=== PATIENT | male | born 1945 | race Caucasian/White ===

== ENCOUNTER → 2016-10-13 | Outpatient (CLI) | payer MEDICARE, OTHER ==
--- NOTE | 2016-10-13 16:22 | XR ---
EXAMINATION TYPE: XR chest 2V DATE OF EXAM: 10/13/2016 3:05 PM COMPARISON: NONE HISTORY: Abnormal weight loss TECHNIQUE: Frontal and lateral views of the chest are obtained. FINDINGS: There is no pleural effusion, or pneumothorax seen. The cardiac silhouette size is within normal limits. There are prominent lung volumes. Substernal nodular density seen on the lateral vi ew measures approximately 2.4 cm. The osseous structures are intact. IMPRESSION: Substernal lung nodule, recommend chest CT for better evaluation. A Yellow message has been communicated to Kahlil Bliss DO via the [employer] system on 10/13/2016 4:19 PM, Message ID [id number].
== END | disposition home or self-care (01) ==
LOC: RADXRMAIN 14:55
PROVIDERS: ATTEND Family Medicine
DX: R91.1 Solitary pulmonary nodule (principal); R63.4 Abnormal weight loss
CPT/HCPCS: 71020

== ENCOUNTER → 2016-10-21 | Outpatient (CLI) | payer MEDICARE, OTHER ==
--- NOTE | 2016-10-21 08:31 | CT ---
EXAMINATION TYPE: CT chest wo con DATE OF EXAM: 10/21/2016 8:17 AM COMPARISON: NONE HISTORY: Abn CXR, wt loss CT DLP: 754 mGycm Automated exposure control for dose reduction was used. FINDINGS: There is minimal scarring in the right middle lobe. No parenchymal nodule is seen. There is no significant axillary, mediastinal or hilar adenopathy. There is no pleural or pericardial fluid. The heart is not enlarged. There is calcification of the coronary arteries as well as other v ascular calcifications. No retrosternal mass is seen. Preprocedure There is a tiny calcification within the neck of the gallbladder likely representing a small gallston e. There is a 2.1 cm exophytic lesion arising from the upper pole of the right kidney. This likely re presents a cyst. Visualized portions of the upper abdomen are otherwise unremarkable. There is hypertrophic spondylosis within the spine. IMPRESSION: 1. NO PARENCHYMAL OR RETROSTERNAL MASS IS SEEN. 2. MINIMAL SCARRING, RIGHT MIDDLE LOBE. 3. CHOLELITHIASIS. 4. PROBABLE CYST ARISING FROM THE UPPER POLE OF THE RIGHT KIDNEY. THIS COULD BE CONFIRMED WITH ULTRAS OUND.
== END | disposition home or self-care (01) ==
LOC: RADCTMAIN 08:00
PROVIDERS: ATTEND Family Medicine
DX: J98.4 Other disorders of lung (principal); R91.1 Solitary pulmonary nodule
CPT/HCPCS: 71250

== ENCOUNTER → 2017-11-13 | Outpatient (CLI) | payer MEDICARE, OTHER ==
--- NOTE | 2017-11-13 11:14 | XR ---
EXAMINATION TYPE: XR abdomen 2V DATE OF EXAM: 11/13/2017 HISTORY: Pain. Technique: 2 views of the abdomen are submitted. Comparison: None. Findings: There is no convincing evidence of pneumoperitoneum. The Bowel gas pattern is nonspecific and nonobstructive. No sizable air-fluid levels are seen. No mass effects are noted. No renal calcifications are identified. IMPRESSION: 1. Nonspecific nonobstructive bowel gas pattern
== END | disposition home or self-care (01) ==
LOC: RADXRMAIN 10:38
PROVIDERS: ATTEND Family Medicine
DX: R10.9 Unspecified abdominal pain (principal)
CPT/HCPCS: 74019

== ENCOUNTER 2018-02-15 15:10 | Emergency (ER) | payer MEDICARE, OTHER ==
[2018-02-15] MEDS ORDERED: LIDOCAINE 1% INJ 10MG/ML (20 ML MDV) SQ ONE (15:48)
[2018-02-15] MEDS ORDERED: DIPH,PERTUS(ACELL)TETVAC-LF 0.5 ML VIAL IM ONE (15:48)
--- NOTE | 2018-02-15 15:58 | ED ---
Wound/Laceration HPI - General Source: patient, RN notes reviewed Mode of arrival: ambulatory Limitations: no limitations <Oxana Poe - Last Filed: 02/15/18 19:41> <Will Tobias - Last Filed: 02/15/18 21:30> - General Chief Complaint: Wound/Laceration Stated Complaint: hand lac - History of Present Illness Initial Comments: This a 73-year-old male past medical history of hypertension and CAD presents today for chief complaint of right thumb laceration. Patient states that about 20 minutes prior to presentation he was cleaning a picture frame when it fell and shattered cutting his right thumb. Patient denies any glass being inside of the wound. However he states that he is unsure. Patient denies any use of anticoagulants. Patient does not know if his tetanus up-to-date. Patient denies any numbness, tingling, loss sensation, decreased range of motion of the thumb. Patient denies pain at this time. Patient states that he applied pressure and presented emergency department. Vital signs stable. (Oxana Poe) - Related Data Home Medications Medication Instructions Recorded Confirmed Ascorbic Acid [Vitamin C] 1,000 mg PO DAILY 02/15/18 02/15/18 Aspirin EC [Ecotrin Low Dose] 81 mg PO DAILY 02/15/18 02/15/18 Atorvastatin [Lipitor] 40 mg PO DAILY 02/15/18 02/15/18 Cholecalciferol [Vitamin D3] 1,000 unit PO DAILY 02/15/18 02/15/18 Lisinopril-Hctz 20-12.5 mg 1 tab PO BID 02/15/18 02/15/18 [Zestoretic 20-12.5] [place]-3 Fatty Acids/Fish Oil [Fish 1 cap PO DAILY 02/15/18 02/15/18 Oil 1,000 mg Softgel] Sertraline [Zoloft] 50 mg PO DAILY 02/15/18 02/15/18 Tamsulosin HCl [Flomax] 0.4 mg PO HS 02/15/18 02/15/18 Thiamine [Vitamin B-1] 50 mg PO DAILY 02/15/18 02/15/18 Allergies Allergy/AdvReac Type Severity Reaction Status Date / Time No Known Allergies Allergy Verified 02/15/18 16:18 Review of Systems ROS Other: All systems not noted in ROS Statement are negative. Constitutional: Denies: fever, chills Respiratory: Denies: cough, dyspnea Cardiovascular: Denies: chest pain, palpitations Endocrine: Denies: fatigue Gastrointestinal: Denies: abdominal pain, nausea, vomiting, diarrhea, constipation Genitourinary: Denies: urgency, dysuria Musculoskeletal: Denies: back pain Skin: Reports: as per HPI. Denies: rash, lesions <Oxana Poe - Last Filed: 02/15/18 19:41> ROS Other: All systems not noted in ROS Statement are negative. <JatinderWill - Last Filed: 02/15/18 21:30> ROS Statement: Those systems with pertinent positive or pertinent negative responses have been documented in the HPI. Past Medical History Past Medical History: Hyperlipidemia, Hypertension History of Any Multi-Drug Resistant Organisms: None Reported Past Surgical History: No Surgical Hx Reported Past Psychological History: Anxiety, Depression Smoking Status: Never smoker Past Alcohol Use History: None Reported Past Drug Use History: None Reported <Oxana Poe - Last Filed: 02/15/18 19:41> General Exam Limitations: no limitations <Oxana Poe - Last Filed: 02/15/18 19:41> <Will Tobias - Last Filed: 02/15/18 21:30> - General Exam Comments Initial Comments: General: The patient is awake and alert, in no distress, and does not appear acutely ill. Eye: Pupils are equal, round and reactive to light, extra-ocular movements are intact. No nystagmus. There is normal conjunctiva bilaterally. No signs of icterus. Cardiovascular: There is a regular rate and rhythm. No murmur, rub or gallop is appreciated. Respiratory: Lungs are clear to auscultation, respirations are non-labored, breath sounds are equal. No wheezes, stridor, rales, or rhonchi. Musculoskeletal: Normal ROM at the MCP, DIP and PIP joints with flexion and extension these joints were tested individually. All joints have 5/5 strength. No tenderness to range of motion. Sensation intact. Radial pulses equal bilaterally 2+. Neurological: A&O x 3. CN II-XII intact, There are no obvious motor or sensory deficits. Coordination appears grossly intact. Speech is normal. Skin: Skin is warm and dry and no rashes. There is a 3 cm U-shaped laceration to the flexor aspect of the right thumb, with skin flap. Appears to be superficial, no exposure of underlying structures. No evidence of exposed tendons. No evidence of FB. No active bleeding Psychiatric: Cooperative, appropriate mood & affect, normal judgment. (Oxana Poe) Course <Oxana Poe - Last Filed: 02/15/18 19:41> <Will Tobias - Last Filed: 02/15/18 21:30> Vital Signs 02/15/18 02/15/18 15:38 17:18 Temperature 98.4 F 98.6 F Pulse Rate 89 87 Respiratory 18 16 Rate Blood Pressure 138/76 136/77 O2 Sat by Pulse 95 98 Oximetry - Reevaluation(s) Reevaluation #1: 02/15/18 21:30 PA supervision: I did personally evaluate this case and do agree with the assessment and plan and less otherwise indicated. (Will Tobias) Procedures - Laceration Laceration #1 Consent Obtained: verbal consent Time Out Performed: Yes Indication: laceration Site: hand (right flexor surface of thumb) Size (cm): 3 Description: flap, irregular, clean Depth: simple, single layer Anesthetic Used: lidocaine 1% Anesthesia Technique: local infiltration Amount (mls): 10 Pre-repair: wound explored, irrigated extensively, deep structures intact Type of Sutures: nylon Size of Sutures: 5-0 Number of Sutures: 9 Technique: simple, interrupted Patient Tolerated Procedure: well, no complications <LuiOxana L - Last Filed: 02/15/18 19:41> Medical Decision Making <Oxana Poe - Last Filed: 02/15/18 19:41> <Will Tobias - Last Filed: 02/15/18 21:30> - Medical Decision Making Pt received TDaP. Laceration assessed/explored. XR obtained no evidence of foreign body. Wound edges were approximated using 9, 5. 0 nylon sutures. Patient tolerate procedure well. Prior to her laceration repair wound was extensively irrigated and cleansed using iodine. MSK exam revealed full range of motion at all joint of the the thumb, there is no evidence of exposure of tendon or tendon injury. Bacitracin was applied and sterile bandage. Signs of symptoms of infection were discussed with the patient, he is instructed to return to ER if these arise. Patient is not diabetic, there is no ppx abx indicated at this time. Patient was discharged with instruction to follow-up in 7 days for suture removal. Patient verbalized understanding. Patient is discharged in stable condition. (Oxana Poe) Disposition Is patient prescribed a controlled substance at d/c from ED?: No Time of Disposition: 17:01 <Oxana Poe - Last Filed: 02/15/18 19:41> <Will Tobias - Last Filed: 02/15/18 21:30> Clinical Impression: Laceration of right thumb without complication Disposition: HOME SELF-CARE Condition: Good Instructions: Care For Your Stitches (ED), Finger Laceration (ED) Additional Instructions: Please use over the counter pain medication as discussed. Please follow-up in 7 -10 days for suture removal. Please return to emergency room if the symptoms increase or worsen or for any other concerns. Referrals: Kahlil Bliss DO [Primary Care Provider] - 1-2 days
--- NOTE | 2018-02-15 16:07 | XR ---
EXAMINATION TYPE: XR hand limited RT DATE OF EXAM: 02/15/2018 COMPARISON: NONE HISTORY: 73-year-old male first metacarpal and radial styloid laceration TECHNIQUE: 2 views FINDINGS: No retained radiopaque foreign body seen. 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 No acute fracture, subluxation, or dislocation is seen. IMPRESSION: No acute osseous abnormality seen. No retained radiopaque foreign body. Chronic ununited fracture fra gment of the ulnar styloid process.
[2018-02-15 17:19] VITALS: BP 136/77; PULSE 87; RESP 16; TEMP 98.6
== END 2018-02-15 17:17 | disposition home or self-care (01) ==
LOC: EC 15:10
DX: S61.011A Laceration without foreign body of right thumb without damage to nail, initial encounter (principal); E78.5 Hyperlipidemia, unspecified; I10 Essential (primary) hypertension; I25.10 Atherosclerotic heart disease of native coronary artery without angina pectoris; F32.9 Major depressive disorder, single episode, unspecified; F41.9 Anxiety disorder, unspecified; Z23 Encounter for immunization; Z79.82 Long term (current) use of aspirin; Z79.899 Other long term (current) drug therapy; W45.8XXA Other foreign body or object entering through skin, initial encounter; Y93.89 Activity, other specified
CPT/HCPCS: 73120; 90715; 99283; 12002; 90471; J2001

== ENCOUNTER 2018-09-05 07:34 | Emergency (ER) | payer MEDICARE, OTHER ==
[2018-09-05 07:48] VITALS: TEMP 98
[2018-09-05] MEDS ORDERED: methylPREDNISolone SOD SUCCI 125 MG/2 ML VIAL IV STA (08:18)
[2018-09-05] MEDS ORDERED: diphenhydrAMINE 50 MG/ML 1 ML VIAL IVP STA (08:18)
--- NOTE | 2018-09-05 08:41 | ED ---
Allergic Reaction HPI - General Chief complaint: Allergic Reaction Stated complaint: Swollen tongue Time Seen by Provider: 09/05/18 08:11 Source: patient, RN notes reviewed Mode of arrival: ambulatory Limitations: no limitations - History of Present Illness Initial Comments: 73-year-old male presents emergency Department with chief complaint of tongue s welling. Patient states he woke up with it this morning. He states that he just felt that something was off states he looked at this time he noticed swelling on the right side. Patient states it no symptoms last night. He does state that the symptoms seem to be improving at this time. Denies any new medications soaps lotions detergents, new foods or known ALLERGIES. Patient does admit that he takes aspirin and lisinopril. Patient denies any difficulty swallowing, difficulty breathing. He states that he just noticed that his tongue is swollen. Patient states that he is able to eat and drink this morning with no difficulty. Patient has fever, chills, headache, dizziness. - Related Data Home Medications Medication Instructions Recorded Confirmed Ascorbic Acid [Vitamin C] 1,000 mg PO DAILY 02/15/18 09/05/18 Aspirin EC [Ecotrin Low Dose] 81 mg PO DAILY 02/15/18 09/05/18 Atorvastatin [Lipitor] 40 mg PO DAILY 02/15/18 09/05/18 Cholecalciferol [Vitamin D3] 1,000 unit PO DAILY 02/15/18 09/05/18 Lisinopril-Hctz 20-12.5 mg 1 tab PO BID 02/15/18 09/05/18 [Zestoretic 20-12.5] [place]-3 Fatty Acids/Fish Oil [Fish 1 cap PO DAILY 02/15/18 09/05/18 Oil 1,000 mg Softgel] Sertraline [Zoloft] 50 mg PO DAILY 02/15/18 09/05/18 Tamsulosin HCl [Flomax] 0.4 mg PO HS 02/15/18 09/05/18 Thiamine [Vitamin B-1] 50 mg PO DAILY 02/15/18 09/05/18 Allergies Allergy/AdvReac Type Severity Reaction Status Date / Time No Known Allergies Allergy Verified 09/05/18 07:55 Review of Systems ROS Statement: Those systems with pertinent positive or pertinent negative responses have been documented in the HPI. ROS Other: All systems not noted in ROS Statement are negative. Past Medical History Past Medical History: Hyperlipidemia, Hypertension History of Any Multi-Drug Resistant Organisms: None Reported Past Surgical History: No Surgical Hx Reported Past Psychological History: Anxiety, Depression Smoking Status: Never smoker Past Alcohol Use History: None Reported Past Drug Use History: None Reported General Exam Limitations: no limitations General appearance: alert, in no apparent distress Head exam: Present: atraumatic, normocephalic, normal inspection Eye exam: Present: normal appearance, PERRL, EOMI. Absent: scleral icterus, conjunctival injection, periorbital swelling ENT exam: Present: mucous membranes moist, TM's normal bilaterally, normal external ear exam. Absent: normal oropharynx (Swelling of the right side of his tongue with no ecchymotic areas no lacerations or lesions. Patient is a patent airway, swallowing secretions well and in no distress) Neck exam: Present: normal inspection, full ROM. Absent: tenderness, meningismus, lymphadenopathy Respiratory exam: Present: normal lung sounds bilaterally. Absent: respiratory distress, wheezes, rales, rhonchi, stridor Cardiovascular Exam: Present: regular rate, normal rhythm, normal heart sounds. Absent: systolic murmur, diastolic murmur, rubs, gallop, clicks Skin exam: Present: warm, dry, intact, normal color. Absent: rash Course Vital Signs 09/05/18 07:45 Temperature 98 F Pulse Rate 86 Respiratory 16 Rate Blood Pressure 115/69 O2 Sat by Pulse 97 Oximetry - Reevaluation(s) Reevaluation #1: 09/05/18 11:19 Patient reevaluated multiple times patient's symptoms feel the be improving. He has no difficulty swallowing no difficulty breathing. Patient will be discharged. Medical Decision Making - Medical Decision Making 73-year-old male presented for tongue swelling. Patient symptoms may be related to his JUAN JOSÉ inhibitor. Patient advised to discontinue JUAN JOSÉ inhibitor and follow- up with PCP for further blood pressure medication. Patient was observed in emergency Department for 4 hours with no worsening of symptoms. Symptoms are improving. Patient never had any distress, no difficulty swallowing or difficulty breathing. Patient understands that he is to return for any change in symptoms. - Lab Data Result diagrams: 09/05/18 08:34 09/05/18 08:34 Lab Results 09/05/18 09/05/18 Range/Units 08:34 08:34 WBC 5.9 (3.8-10.6) k/uL RBC 4.62 (4.30-5.90) m/uL Hgb 12.4 L (13.0-17.5) gm/dL Hct 39.0 (39.0-53.0) % MCV 84.4 (80.0-100.0) fL MCH 26.8 (25.0-35.0) pg MCHC 31.7 (31.0-37.0) g/dL RDW 15.4 (11.5-15.5) % Plt Count 202 (150-450) k/uL Neutrophils % 69 % Lymphocytes % 14 % Monocytes % 5 % Eosinophils % 9 % Basophils % 1 % Neutrophils # 4.1 (1.3-7.7) k/uL Lymphocytes # 0.8 L (1.0-4.8) k/uL Monocytes # 0.3 (0-1.0) k/uL Eosinophils # 0.5 (0-0.7) k/uL Basophils # 0.0 (0-0.2) k/uL Sodium 139 (137-145) mmol/L Potassium 4.8 (3.5-5.1) mmol/L Chloride 107 (98-107) mmol/L Carbon Dioxide 23 (22-30) mmol/L Anion Gap 9 mmol/L BUN 36 H (9-20) mg/dL Creatinine 1.39 H (0.66-1.25) mg/dL Est GFR (CKD-EPI)AfAm 59 (>60 ml/min/1.73 sqM) Est GFR (CKD-EPI)NonAf 51 (>60 ml/min/1.73 sqM) Glucose 111 H (74-99) mg/dL Calcium 9.4 (8.4-10.2) mg/dL Disposition 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 Is patient prescribed a controlled substance at d/c from ED?: No Referrals: Kahlil Bliss DO [Primary Care Provider] - 1-2 days Time of Disposition: 11:22
[2018-09-05 08:54] LABS: Basophils % (A) 1 %; Eosinophils # (A) 0.5 k/uL (0-0.7); Eosinophils % (A) 9 %; HGB 12.4 gm/dL (13.0-17.5); Lymphocytes # (A) 0.8 k/uL (1.0-4.8); Lymphocytes % (A) 14 %; MCH 26.8 pg (25.0-35.0); MCHC 31.7 g/dL (31.0-37.0); MCV 84.4 fL (80.0-100.0); Mean Platelet Volume 7.6; Monocytes # (A) 0.3 k/uL (0-1.0); Monocytes % (A) 5 %; Neutrophils # (A) 4.1 k/uL (1.3-7.7); Neutrophils % (A) 69 %; Platelet Count 202 k/uL (150-450); RBC 4.62 m/uL (4.30-5.90); RDW 15.4 % (11.5-15.5); WBC 5.9 k/uL (3.8-10.6)
[2018-09-05 09:03] LABS: Calcium 9.4 mg/dL (8.4-10.2); Potassium 4.8 mmol/L (3.5-5.1)
[2018-09-05 11:32] VITALS: BP 112/75; PULSE 82; RESP 18
== END 2018-09-05 11:32 | disposition home or self-care (01) ==
LOC: EC 07:34
DX: T78.3XXA Angioneurotic edema, initial encounter (principal); E78.5 Hyperlipidemia, unspecified; I10 Essential (primary) hypertension; F41.9 Anxiety disorder, unspecified; F32.9 Major depressive disorder, single episode, unspecified; Z79.899 Other long term (current) drug therapy
CPT/HCPCS: 36415; 80048; 85025; 99283; 96374; 96375; J1200; J2930

== ENCOUNTER → 2020-03-19 | Outpatient (CLI) | payer MEDICARE, OTHER ==
--- NOTE | 2020-03-19 08:02 | CT ---
EXAMINATION TYPE: CT sinus wo con DATE OF EXAM: 03/19/2020 COMPARISON: NONE HISTORY: Chronic sinusitis and nasal polyps per order. CT DLP: 556.9 mGycm. Automated Exposure Control for Dose Reduction was Utilized. TECHNIQUE: CT scan of the sinuses is performed without contrast, axial images are obtained, coronal r eformatted images are also reviewed. FINDINGS: Mild to moderate lobulated mucosal thickening inferior aspect of bilateral maxillary sinuse s. Moderate to severe mucosal thickening throughout the ethmoid sinuses bilaterally with relative spa ring of the posterior ethmoid sinuses. Mild mucosal thickening involving the sphenoid sinuses bilater ally greatest anteriorly. Mild to moderate mucosal thickening involving the inferior aspect of the bi lateral frontal sinuses. No suspicious patchy opacification or air-fluid levels The surgically treate d ostiomeatal complex remains patent bilaterally on coronal image 21, there is asymmetric left greate r than right increased mucosal thickening causing asymmetric left-sided narrowing. Nasal septum is de viated to left of midline. Visualized portion of mastoid air cells show no abnormal opacification. The globes are intact bilate rally. There is diffuse age-related mild/moderate cerebral atrophy noted and visualized brain parenc hyma IMPRESSION: Chronic paranasal sinus disease as detailed above. No acute sinusitis currently.
== END | disposition home or self-care (01) ==
LOC: RADCTMAIN 06:45
PROVIDERS: ATTEND Otolaryngology
DX: J34.89 Other specified disorders of nose and nasal sinuses (principal); J34.2 Deviated nasal septum; J32.9 Chronic sinusitis, unspecified; Z88.8 Allergy status to other drugs, medicaments and biological substances
CPT/HCPCS: 70486

== ENCOUNTER → 2020-03-19 | Outpatient (CLI) | payer MEDICARE, OTHER ==
--- NOTE | 2020-03-19 15:59 | US ---
EXAMINATION TYPE: US scrotum with doppler. Grayscale and color Doppler Duplex imaging performed of t he scrotum. 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 EXAM MEASUREMENTS: TESTICLES: Right Testicle: 4.3 x 2.7 x 3.1 cm Left Testicle: 4.1 x 2.8 x 3.1 cm EPIDIDYMIS HEAD: Right Epididymis: 0.7 cm Left Epididymis: 1.1 cm Doppler performed to assess for testicular vascularity; good bilateral color flow and waveforms are s een. There is no evidence of testicular torsion. Presence of hydroceles: Right measuring 4.6 x 1.7 x 2.5cm Presence of varicoceles: no Irregular shaped calcified vascular mass measuring 6.6 x 3.3 x 7.1cm. This mass appears extratesticul ar. IMPRESSION: 1. Large vascular extratesticular mass left hemiscrotum. Hydrocele is present.
== END | disposition home or self-care (01) ==
LOC: RADUSWWP 14:54
PROVIDERS: ATTEND Family Medicine
DX: N43.3 Hydrocele, unspecified (principal); N50.89 Other specified disorders of the male genital organs
CPT/HCPCS: 76870; 93975

== ENCOUNTER 2020-04-09 09:03 | Day surgery (SDC) | payer MEDICARE, OTHER ==
[2020-04-08 10:17] VITALS: BMI 34.4
[~2020-04-09 09:03] MED LIST: LACTATED RINGERS 1,000 ML IV SCH
[2020-04-09 09:24] VITALS: TEMP 97.3
[2020-04-09] MEDS ORDERED: LACTATED RINGERS 1,000 ML IV ONE (09:27)
[2020-04-09] MEDS ORDERED: LIDOCAINE 1% (10MG/ML) FOR IV START INTRADERMA ONE (09:27)
[2020-04-09] MEDS ORDERED: PROPOFOL 10 MG/ML 20 ML VIAL IV ONE (10:19)
--- NOTE | 2020-04-09 10:53 | P.PCN ---
Date of Procedure: 04/09/20 Description of Procedure: BRIEF HISTORY: Patient is a 75-year-old male presenting for evaluation of colon, altered bowel function, blood per rectum with colonoscopy. Last colonoscopy 3 years ago significant for polypectomy and diverticulosis. Patient reports altered bowel function over the past 2 months with increased frequency of loose stools with blood per rectum and mucus. PROCEDURE PERFORMED: Colonoscopy with biopsy. PREOPERATIVE DIAGNOSIS: Melena, altered bowel function, blood per rectum, last colonoscopy 3 years ago. ESTIMATED BLOOD LOSS: Minimal. IV sedation per Anesthesia. PROCEDURE: After informed consent was obtained, the patient, was brought into the endoscopy unit. IV sedation was administered by Anesthesia under continuous monitoring. Digital rectal examination was normal. Initially the Olympus CF-190 flexible video colonoscope was then inserted in the rectum, gradually advanced into the cecum without any difficulty. Careful examination was performed as the scope was gradually being withdrawn. Ileocecal valve and the appendiceal orifice were visualized and appeared normal. Prep was excellent. Mucosa of the cecum, ascending colon, transverse colon, descending colon, sigmoid colon, and rectum appeared normal, except for continuous erythema from approximately 40 cm from the anal verge to the anal verge with some friability noted. Random biopsies were taken of a normal-appearing terminal ileum, the right colon, transverse colon, left colon and rectum. Retroflexion was performed in the rectum and no lesions were seen. A few scattered diverticula noted in the sigmoid colon. The patient tolerated the procedure well. IMPRESSION: Mild colitis of the left colon. Mild sigmoid diverticulosis. Biopsies taken of the terminal ileum, right colon, transverse colon, left colon and rectum. RECOMMENDATIONS: Findings of this examination were discussed with the patient. Okay to resume diet. Okay to resume medications. Await pathology from biopsies. Patient will need follow-up in the GI clinic in the next 7-10 days for results of biopsies, if these are consistent with ulcerative colitis patient will need to be started on maintenance therapy.
[2020-04-09 11:07] VITALS: RESP 16
[2020-04-09 11:09] VITALS: BP 133/76; PULSE 70
== END 2020-04-09 11:37 | disposition home or self-care (01) ==
LOC: ORWHC2ENDO 09:03
PROVIDERS: ATTEND Internal Medicine
DX: K57.30 Diverticulosis of large intestine without perforation or abscess without bleeding (principal); K52.9 Noninfective gastroenteritis and colitis, unspecified; K61.1 Rectal abscess; Z98.41 Cataract extraction status, right eye; I25.10 Atherosclerotic heart disease of native coronary artery without angina pectoris; I10 Essential (primary) hypertension; E78.5 Hyperlipidemia, unspecified; F41.9 Anxiety disorder, unspecified; F32.9 Major depressive disorder, single episode, unspecified; G47.33 Obstructive sleep apnea (adult) (pediatric); Z87.891 Personal history of nicotine dependence; Z95.5 Presence of coronary angioplasty implant and graft; Z98.890 Other specified postprocedural states; Z79.899 Other long term (current) drug therapy; Z79.82 Long term (current) use of aspirin; Z88.8 Allergy status to other drugs, medicaments and biological substances
CPT/HCPCS: 88305; 45380; J2704

== ENCOUNTER → 2020-05-29 | Outpatient (CLI) | payer MEDICARE, OTHER ==
--- NOTE | 2020-05-29 09:15 | US ---
EXAMINATION TYPE: US duplex aorta DATE OF EXAM: 05/29/2020 COMPARISON: NONE CLINICAL HISTORY: I71.4 AAA. Patient states he is unaware of AAA, no symptoms large habitus and bowel gas EXAM MEASUREMENTS: Abdominal Aorta: Proximal: not seen Mid: 2.6 x 2.3cm Distal: 4.5 x 4.4cm Bifurcation: not seen Infrarenal AAA seen with atherosclerotic changes IMPRESSION: 1. Infrarenal 4.5 cm abdominal aortic aneurysm A [place] level critical message alert has been initiated for Kahlil Bliss DO via the [employer] on 05/29/2020 9:13 AM. This message alert has been sent to Kahlil javed DO via the preferences provided by the clinician for the receipt of Radiology Critical Findings . Message ID [id number].
--- NOTE | 2020-05-29 09:17 | US ---
EXAMINATION TYPE: US carotid duplex BILAT DATE OF EXAM: 05/29/2020 COMPARISON: NONE CLINICAL HISTORY: I25.10 ATHEROSCLEROTIC HEART DISEASE OF [place] CORONARY ZAKIA. Maternal history of c ardiovascular disease, patient unaware for himself, no h/o stroke EXAM MEASUREMENTS: RIGHT: Peak Systolic Velocity (PSV) cm/sec ----- Right CCA: 78.8 ----- Right ICA: 200.5 ----- Right ECA: 117.3 ICA/CCA ratio: 2.5 RIGHT: End Diastole cm/sec ----- Right CCA: 25.6 ----- Right ICA: 37.9 ----- Right ECA: 10.7 LEFT: Peak Systolic Velocity (PSV) cm/sec ----- Left CCA: 128.5 ----- Left ICA: 369.5 ----- Left ECA: 168.7 ICA/CCA ratio: 2.9 LEFT: End Diastole cm/sec ----- Left CCA: 25.0 ----- Left ICA: 81.8 ----- Left ECA: 17.7 VERTEBRALS (direction of flow): Right Vertebral: Antegrade Left Vertebral: Antegrade Rhythm: Normal Heterogeneous plaque seen bilaterally with stenosis noted bilaterally also. IMPRESSION: 1. Greater than 70% stenosis proximal left internal carotid artery. 2. Moderate stenosis between 50 and 69% within the right internal carotid artery. Velocities suggest a cyst at the higher end of narrowing. Criteria for Assigning % of Stenosis / Diameter reduction (Estimation based on the indirect measurements of the internal carotid artery velocities (ICA PSV). 1. Normal (no stenosis)=ICA PSV < 125 cm/s: ratio < 2.0: ICA EDV<40 cm/s. 2. Less than 50% stenosis=ICA PSV < 125 cm/s: ratio < 2.0: ICA EDV<40 cm/s. 3. 50 to 69% stenosis=ICA PSV of 125 to 230 cm/s: ration 2.0 ? 4.0: ICA EDV 40-100 cm/s. 4. Greater than 70% stenosis to near occlusion= ICA PSV > 230 cm/s: ratio > 4.0: ICA EDV > 100 cm/s. 5. Near occlusion= ICA PSV velocities may be low or undetectable: variable ratio and ICA EDV. 6. Total occlusion=unable to detect flow.
== END | disposition home or self-care (01) ==
LOC: RADUSWWP 08:13
PROVIDERS: ATTEND Family Medicine
DX: I65.23 Occlusion and stenosis of bilateral carotid arteries (principal); I71.4 Abdominal aortic aneurysm, without rupture; I25.10 Atherosclerotic heart disease of native coronary artery without angina pectoris
CPT/HCPCS: 93880; 93979

== ENCOUNTER → 2020-07-07 | Outpatient (CLI) | payer MEDICARE ==
--- NOTE | 2020-07-07 09:55 | CT ---
EXAMINATION TYPE: CT angio neck DATE OF EXAM: 07/07/2020 COMPARISON: Correlation ultrasound 1218 HISTORY: 75-year-old male I65.29, Carotid stenosis TECHNIQUE: Contiguous axial scanning of the neck performed with IV Contrast, patient injected with 65 mL of Isovue 370. Coronal/sagittal MIP reconstructions performed. 3-D reconstructions generated on a dedicated independent workstation. CT DLP: 384.7 mGycm Automated exposure control for dose reduction was used. FINDINGS: Mild to moderate atherosclerotic changes within the aortic arch. Conventional branching anatomy. Nonvisualization of the V1 segment right vertebral artery. Faint reconstitution of the upper V3 segme nt right vertebral artery. Severe atherosclerotic narrowing at the proximal right subclavian artery. Unable to exclude a moderate atherosclerotic narrowing at the origin of the left vertebral artery. The anterior cranial portions of the vertebral artery shows diminutive, possibly hypoplastic right ve rtebral artery and small but patent basilar artery. The right common carotid artery is patent. Moderate atherosclerotic change at the right carotid bifurcation. There is a moderate, just over 50% narrowing at the bifurcation itself and mild, under 50% narrowing at the level of the carotid bulb. Tortuous upper cervical right ICA. The left common carotid artery is patent. Severe atherosclerotic plaque and calcification at the left carotid bifurcation with a severe, 90% fo susannah stenosis in the left carotid bulb. Tortuous mid and upper cervical ICA. The left bifurcation is l ocated 3.8 cm below the angle of the mandible. IMPRESSION: 1. SEVERE, 90% ATHEROSCLEROTIC STENOSIS LEFT CAROTID BULB. 2. MODERATE ATHEROSCLEROTIC CHANGE AT THE RIGHT CAROTID BIFURCATION. THERE IS MODERATE, JUST OVER 50% NARROWING AT THE BIFURCATION ITSELF AND MILD, APPROXIMATELY 40% NARROWING AT THE LEVEL OF THE CAROTI D BULB. 3. SEVERE ATHEROSCLEROTIC STENOSIS INVOLVING THE ORIGIN OF THE RIGHT SUBCLAVIAN ARTERY. 4. NONVISUALIZATION OF THE V1 SEGMENT RIGHT VERTEBRAL ARTERY PROBABLY DUE TO OCCLUSION AT ITS ORIGIN. THERE IS FAINT RECONSTITUTION OF THE V3 SEGMENT. THE INTRACRANIAL PORTION OF THE RIGHT VERTEBRAL ART LISA IS DIMINUTIVE.
== END | disposition home or self-care (01) ==
LOC: RADCTMAIN 07:54
PROVIDERS: ATTEND Surgery
DX: I65.23 Occlusion and stenosis of bilateral carotid arteries (principal); I70.8 Atherosclerosis of other arteries
CPT/HCPCS: 82565; 84520; 70498; 36415; Q9967

== ENCOUNTER → 2020-07-14 | Outpatient (CLI) | payer MEDICARE ==
--- NOTE | 2020-07-15 09:37 | ECHOF ---
Referral Reason:ASHD MEASUREMENTS -------- HEIGHT: 177.8 cm WEIGHT: 108.9 kg BP: RVIDd: 3.5 cm (< 3.3) IVSd: 1.2 cm (0.6 - 1.1) LVIDd: 4.3 cm (3.9 - 5.3) LVPWd: 1.5 cm (0.6 - 1.1) IVSs: 2.0 cm LVIDs: 3.1 cm LVPWs: 2.0 cm LA Diam: 3.7 cm (2.7 - 3.8) LAESV Index (A-L): 27.96 ml/m Ao Diam: 3.8 cm (2.0 - 3.7) AV Cusp: 2.0 cm (1.5 - 2.6) MV EXCURSION: 17.332 mm (> 18.000) MV EF SLOPE: 88 mm/s (70 - 150) EPSS: 0.3 cm MV E Bunny: 1.15 m/s MV DecT: 239 ms MV A Bunny: 1.21 m/s MV E/A Ratio: 0.95 FINDINGS -------- Sinus rhythm. This was a technically adequate study. The left ventricular size is normal. There is moderate concentric left ventricular hypertrophy. O verall left ventricular systolic function is normal with, an EF between 60 - 65 %. The right ventricle is mildly enlarged. Normal LA size by volume 22+/-6 ml/m2. The right atrium is normal in size. Interatrial and interventricular septum intact. The aortic valve is trileaflet and appears structurally normal. The mitral valve leaflets are mildly thickened. The tricuspid valve appears structurally normal. The pulmonic valve was not well visualized. The aortic root is dilated measuring 3.8cm. Ascending AO dilated up to 40 mm IVC Not well visulized. There is no pericardial effusion. CONCLUSIONS -------- 1. The left ventricular size is normal. 2. There is moderate concentric left ventricular hypertrophy. 3. Overall left ventricular systolic function is normal with, an EF between 60 - 65 %. 4. The right ventricle is mildly enlarged. 5. Normal LA size by volume 22+/-6 ml/m2. 6. The aortic valve is trileaflet and appears structurally normal. 7. The mitral valve leaflets are mildly thickened. 8. The aortic root is dilated measuring 3.8cm. 9. Ascending AO dilated up to 40 mm 10. There is no pericardial effusion. HOSPITAL CODER: Arabella Myers RDCS
== END | disposition home or self-care (01) ==
LOC: RADECHMAIN 11:21
PROVIDERS: ATTEND Internal Medicine Cardiovascular Disease
DX: I25.10 Atherosclerotic heart disease of native coronary artery without angina pectoris (principal)
CPT/HCPCS: 93306

== ENCOUNTER → 2020-08-21 | Outpatient (CLI) | payer MEDICARE ==
[2020-08-21 12:11] LABS: Anisocytosis Slight; Basophils # (A) 0.1 k/uL (0-0.2); Basophils % (A) 1 %; Eosinophils # (A) 0.2 k/uL (0-0.7); Eosinophils % (A) 4 %; HCT 40.5 % (39.0-53.0); HGB 12.5 gm/dL (13.0-17.5); Hypochromasia Moderate; Lymphocytes # (A) 1.3 k/uL (1.0-4.8); Lymphocytes % (A) 27 %; MCH 24.2 pg (25.0-35.0); MCHC 30.9 g/dL (31.0-37.0); MCV 78.4 fL (80.0-100.0); Microcytosis Slight; Monocytes # (A) 0.5 k/uL (0-1.0); Monocytes % (A) 10 %; Neutrophils # (A) 2.5 k/uL (1.3-7.7); Neutrophils % (A) 54 %; Platelet Count 167 k/uL (150-450); RBC 5.16 m/uL (4.30-5.90); RDW 17.5 % (11.5-15.5); WBC 4.7 k/uL (3.8-10.6)
[2020-08-21 12:21] LABS: Potassium 4.8 mmol/L (3.5-5.1)
== END | disposition home or self-care (01) ==
LOC: LABPAT 11:35
PROVIDERS: ATTEND Surgery
DX: Z01.812 Encounter for preprocedural laboratory examination (principal); I65.23 Occlusion and stenosis of bilateral carotid arteries
CPT/HCPCS: 36415; 80051; 82565; 84520; 85025; 86850; 86900; 86901

== ENCOUNTER 2020-08-24 10:14 | Inpatient (IN) | payer MEDICARE ==
[2020-08-24] MEDS ORDERED: LACTATED RINGERS 1,000 ML IV ONE ×2 (11:57→14:47)
[2020-08-24] MEDS ORDERED: DEXAMETHASONE SOD PHOSPHATE 4 MG/ML 1 ML VIAL IVP ONE (12:07)
[2020-08-24] MEDS ORDERED: ONDANSETRON 4 MG/2 ML VIAL IVP ONE (12:07)
--- NOTE | 2020-08-24 12:27 | P.ANPRN ---
Procedure Note - Anesthesia - Invasive Line Right Arterial Line Time Out Performed: Yes Date of Procedure: 08/24/20 Time of Procedure: 12:11 Location of Patient: PreOp Preparation: Sterile Prep, Sterile Dressing Arterial Line Location: Radial Ultrasound Used: No Purpose - Visualization and Identification of Vasculature: No Needle Guage: 20g Image Stored and Saved: No Narrative: Central line placement per sterile protocol utilized. sterile protocol. 1 attempt
[2020-08-24] MEDS ORDERED: METOPROLOL TARTRATE 5 MG/5 ML VIAL IVP ONE (12:43)
[2020-08-24] MEDS ORDERED: fentaNYL (PF) 50 MCG/ML 2 ML AMP ONE (12:43)
[2020-08-24] MEDS ORDERED: PROPOFOL 10 MG/ML 20 ML VIAL IV ONE (12:43)
[2020-08-24] MEDS ORDERED: SUCCINYLCHOLINE CHLORIDE 100 MG/5 ML SYR IV ONE (12:43)
[2020-08-24] MEDS ORDERED: PHENYLEPHRINE-0.9% NACL SYG 1,000 MCG/10 ML SYRINGE ONE (12:43)
[2020-08-24] MEDS ORDERED: HEPARIN SODIUM,PORCINE 10,000 UNIT/ML 1 ML VIAL ONE (12:43)
[2020-08-24] MEDS ORDERED: LIDOCAINE 1% INJ 10MG/ML (20 ML MDV) ONE (12:43)
[2020-08-24] MEDS ORDERED: ePHEDrine SULFATE/0.9% NACL/PF 50 MG/5 ML SYRINGE IV ONE (12:43)
[2020-08-24] MEDS ORDERED: PROTAMINE SULFATE 10 MG/ML 5 ML VIAL IV ONE (12:43)
[2020-08-24] MEDS ORDERED: NEOSTIGMINE 1 MG/ML 10 ML VIAL ONE (12:43)
[2020-08-24] MEDS ORDERED: ROCURONIUM 10 MG/ML (5 ML VIAL) IV ONE (12:43)
[2020-08-24] MEDS ORDERED: MIDAZOLAM 2 MG/2 ML VIAL ONE (12:43)
[2020-08-24] MEDS ORDERED: GLYCOPYRROLATE 0.2 MG/ML 2 ML VIAL ONE (12:43)
[2020-08-24] MEDS ORDERED: HEPARIN SODIUM (1,000 UNIT/ML) 2,000 UNIT in SODIUM CHLORIDE 0.9% 1,000 ML IRRIGATION ONE (12:49)
[2020-08-24] MEDS ORDERED: ceFAZolin 2 GM in SODIUM CHLORIDE 0.9% 500 ML 500 ML IRRIGATION ONE (12:49)
[2020-08-24] MEDS ORDERED: LIDOCAINE 1% INJ 10MG/ML (20 ML MDV) SQ ONE (13:26)
[2020-08-24] MEDS ORDERED: THROMBIN (BOVINE) 5,000 UNIT VIAL TOPICAL ONE (15:00)
[2020-08-24] MEDS ORDERED: GELATIN SPONGE,ABSORB (LARGE) 1 EACH SPONGE TOPICAL ONE (15:00)
[2020-08-24] MEDS ORDERED: ACETAMINOPHEN TAB 325 MG TAB PO PRN (15:27)
[2020-08-24] MEDS ORDERED: BENZOCAINE/MENTHOL LOZENG 1 EACH LOZENGE MUCOUS MEM PRN (15:27)
[2020-08-24] MEDS ORDERED: MORPHINE SULFATE 2 MG/ML SYRINGE IVP PRN (15:27)
[2020-08-24] MEDS ORDERED: MAG HYDROX/AL HYDROX/SIMETH 30 ML CUP PO PRN (15:27)
[2020-08-24] MEDS ORDERED: HYDROcodone/APAP 5-325MG 1 EACH TAB PO PRN (15:27)
[2020-08-24] MEDS ORDERED: TRIMETHOBENZAMIDE 100 MG/ML 2 ML VIAL IM PRN (15:27)
--- NOTE | 2020-08-24 15:33 | P.OP ---
Description of Procedure: Date of Procedure: 08/24/2020 Preoperative Diagnosis: Left Internal carotid artery stenosis >90% Postoperative Diagnosis: Same Procedure(s) Performed: Left carotid endarterectomy with patch angioplasty Anesthesia: CHRISTIANA Surgeon: Luis Salazar Estimated Blood Loss (ml): 50 mL IV Fluids and urine output: Please see anesthesia record Pathology: Left carotid plaque Condition: stable Disposition: PACU Findings: Hemorrhagic plaque Indications for Procedure: 75-year-old gentleman with history of carotid stenosis presents to the office originally secondary to greater than 90% stenosis of the left internal carotid artery seen on ultrasound and CT angiogram. He presents to the operative suite for endarterectomy. Description of Procedure: After written informed consent was obtained the patient all risks benefits and competitions were described the patient is brought to the operative suite and laid in a supine position. The area of the neck was prepped and draped in usual sterile fashion after appropriate anesthetic was performed per the anesthesiologist. A timeout was performed in normal fashion antibiotics were administered prior to incision. An oblique incision was then created just anterior to the sternocleidomastoid musculature with a 10 blade scalpel and dissection was carried down to the carotid sheath. The carotid sheath was then entered after facial vein was located and suture ligated in normal fashion. The common carotid, internal carotid, external carotid and superior thyroid arteries were located and dissected free in a meticulous fashion circumferentially and controlled with vessel loops. Attention was then placed to locating the vagus nerve as well as hypoglossal nerve which were both spared. Once controlled patient was administered heparin and followed with ACTs for appropriate heparinization. Once ACT was above 200 the proximal and distal aspects of the dissection were then controlled with vascular clamps. Arteriotomy was then created with 11 blade scalpel and extended with James Walker scissors. Utilizing pressure tubing stump pressures were obtained and were 86. No shunt was required and endarterectomy was then performed with a [place] and elevator. The plaque was then feathered at the distal aspect and the internal carotid artery and removed. The area was copiously irrigated with heparinized saline and all free debris was removed. A 7-0 Prolene suture was then placed to tack the distal aspect of the dissection at the internal carotid artery. A 0.8 x 8 cm bovine pericardial patch was then chosen and patch angioplasty was performed with 6-0 Prolene suture in a running fashion. Prior to last sutures being placed the inflow was released flushing any free debris out of the patch. This was reclamped and the internal carotid artery was released revealing good brisk flow and was once again reclamped. The external carotid and superior thyroid artery were then released followed by the common carotid artery to allow any free debris to be flushed into the external system. Final sutures were placed and secured. Internal carotid artery control was then released. Good pulsatile flow was noted through the patch and a Doppler was utilized demonstrating good brisk flow into the internal, external carotid arteries without any signs of obstruction. Hemostasis was then assured with Gelfoam thrombin. A 10-[place] TIFFANY drain was then placed in normal fashion and secured with 3-0 nylon suture. The incision was then closed in a multilayer fashion after hemostasis was assured. The skin was then cleansed and dressings were placed. Patient tolerated the procedure well and was following commands and moving all extremities. Patient was then sent to PACU for recovery.
[2020-08-24 17:05] LABS: Glucose,Whole Blood 116 mg/dL (75-99)
[2020-08-24 19:37] LABS: Anisocytosis Slight; Basophils % (A) 0 %; Eosinophils % (A) 0 %; HCT 36.4 % (39.0-53.0); HGB 11.9 gm/dL (13.0-17.5); Lymphocytes # (A) 0.4 k/uL (1.0-4.8); Lymphocytes % (A) 7 %; MCH 25.3 pg (25.0-35.0); MCHC 32.6 g/dL (31.0-37.0); MCV 77.7 fL (80.0-100.0); Mean Platelet Volume 6.8; Microcytosis Slight; Monocytes # (A) 0.2 k/uL (0-1.0); Monocytes % (A) 3 %; Neutrophils # (A) 5.2 k/uL (1.3-7.7); Neutrophils % (A) 88 %; Platelet Count 131 k/uL (150-450); RBC 4.69 m/uL (4.30-5.90); RDW 17.7 % (11.5-15.5); WBC 5.9 k/uL (3.8-10.6)
[2020-08-24 19:44] LABS: Calcium 8.3 mg/dL (8.4-10.2); Potassium 4.9 mmol/L (3.5-5.1)
--- NOTE | 2020-08-24 22:53 | P.CONS ---
History of Present Illness - Reason for Consult Consult date: 08/24/20 Medical management Requesting physician: Luis Salazar - Chief Complaint Carotid surgery - History of Present Illness Consultation: This is a very pleasant 75-year-old patient of Dr. Jennifer Bliss. Chronic stable medical conditions include coronary artery due to stent in 2017, hypertension, hyperlipidemia, BPH, obstructive sleep apnea does not use a CPAP, diverticulosis bilateral carotid blockage. Patient is a Taoism with no blood transfusions allowed.. Patient has undergone left carotid endarterectomy with angioplasty. Last period patient has a TIFFANY drain in place. No trouble with swallowing. No shortness of breath. Sitting up in bed watching television. Has had no active chest pain or shortness of breath. Review of systems: GEN.: Tired EYES: None HEENT: As above NECK: None RESPIRATORY: None CARDIOVASCULAR: None GASTROINTESTINAL: None GENITOURINARY: Daley catheter. 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 Patient smoked a pack a day for 30 years. Stopped 20 years ago. Alcohol rarely. Physical examination: VITAL SIGNS: 98.1, 68, 21, 102/59, 94% on 2 L L GENERAL: BMI 35.1, declining bed, awake. EYES: Pupils equal. Conjunctiva normal. HEENT: External appearance of nose and ears normal, oral cavity grossly normal. NECK: JVD not raised; dressing over the operative site on the left side with a TIFFANY drain. HEART: First and second heart sounds are normal; no edema. LUNGS: Respiratory rate normal; clear to auscultation. ABDOMEN: Soft, nontender, liver spleen not palpable, no masses palpable. PSYCH: Alert and oriented x3; mood and affect normal. NEUROLOGICAL: Cranial nerves grossly intact; no facial asymmetry, power and sensation grossly intact. LYMPHATICS: No lymph nodes palpable in the axilla and neck INVESTIGATIONS, reviewed in the clinical context: WBC 5.9 hemoglobin 11.9 platelets 131 potassium 4.9 creatinine 1.08 Assessment and plan: -Left carotid endarterectomy with angioplasty patch. Patient has a dressing over the same and a TIFFANY drain. -Traumatic hematuria from Daley catheter. started to clear up, slowly. bladder wash once. -Coronary artery disease with stent in 2017. Resume aspirin and Plavix, been okay with Dr. Salazar -Essential hypertension, continue amlodipine Cozaar -Hyperlipidemia, on Crestor -BPH, on Flomax -Colonic diverticulosis, follow clinically -Obstructive sleep apnea does not use a CPAP -Chronic insomnia does use trazodone Care was discussed with the patient. Questions answered. Diet to be advanced Dr. Salazar. Admitting Janet cox. Thank you Dr. Salazar Past Medical History Past Medical History: Coronary Artery Disease (CAD), Hyperlipidemia, Hypertension, Prostate Disorder, Sleep Apnea/CPAP/BIPAP Additional Past Medical History / Comment(s): bruising easily since recently started on plavix-pt to call Dr Salazar, no cpap used, colitis, diverticulitis, tung carotid blockage, HAS 2 HEART STENTS IN, HAS A CYST ON KIDNEY THEY R WATCHING History of Any Multi-Drug Resistant Organisms: None Reported Past Surgical History: Ear Surgery, Heart Catheterization With Stent, Orthopedic Surgery Additional Past Surgical History / Comment(s): 2 cardiac stents, ORIF rt wrist, skin graft left eardrum, surgery for deviated septum, rt cataract, surgery to remove a growth on scrotum Past Anesthesia/Blood Transfusion Reactions: No Reported Reaction Additional Past Anesthesia/Blood Transfusion Reaction / Comm: JEHOVAHS WITNESS- NO BLOOD TRANSFUSIONS Date of Last Stent Placement:: 01/31/2017 Past Psychological History: Depression Smoking Status: Former smoker Past Alcohol Use History: Rare Additional Past Alcohol Use History / Comment(s): quit smoking 20 yrs ago, smoked for 30 yrs, 1 PPD Past Drug Use History: None Reported - Past Family History Sister(s) Family Medical History: Cancer Brother(s) Family Medical History: Cancer Medications and Allergies Home Medications Medication Instructions Recorded Confirmed Type Ascorbic Acid [Vitamin C] 1,000 mg PO DAILY 02/15/18 08/24/20 History Aspirin EC [Ecotrin Low Dose] 81 mg PO HS 02/15/18 08/24/20 History Cholecalciferol [Vitamin D3] 1,000 unit PO DAILY 02/15/18 08/24/20 History Sertraline [Zoloft] 50 mg PO DAILY 02/15/18 08/24/20 History Tamsulosin HCl [Flomax] 0.4 mg PO HS 02/15/18 08/24/20 History Cyanocobalamin [Vitamin B-12] 500 mcg PO DAILY 04/08/20 08/24/20 History Fluticasone Propionate 2 spray EA NOSTRIL HS 04/08/20 08/24/20 History Rosuvastatin [Crestor] 10 mg PO HS 04/08/20 08/24/20 History amLODIPine BESYLATE 10 mg PO DAILY 04/08/20 08/24/20 History traZODone HCL 50 mg PO HS 04/08/20 08/24/20 History Clopidogrel [Plavix] 75 mg PO DAILY 08/20/20 08/24/20 History Fish Oil/Dha/Epa [Fish Oil 1,200 1 each PO DAILY 08/20/20 08/24/20 History mg Fish Oil] Losartan Potassium [Cozaar] 50 mg PO HS 08/20/20 08/24/20 History sulfaSALAzine [Sulfasalazine Dr] 1,000 mg PO BID 08/20/20 08/24/20 History Allergies Allergy/AdvReac Type Severity Reaction Status Date / Time lisinopril Allergy Anaphylaxis Verified 08/24/20 11:24 Physical Exam Vitals: Vital Signs Temp Pulse Pulse Pulse Resp BP BP 08/24/20 21:00 76 20 08/24/20 20:30 70 19 08/24/20 20:00 98.1 F 68 21 102/59 08/24/20 19:30 68 18 102/59 08/24/20 19:00 76 17 107/63 08/24/20 18:30 80 16 107/63 08/24/20 18:00 68 15 08/24/20 17:30 69 10 L 99/58 08/24/20 17:03 71 21 100/61 08/24/20 16:45 66 16 106/61 08/24/20 16:30 64 16 106/58 08/24/20 16:15 64 16 106/61 08/24/20 16:00 66 16 106/58 08/24/20 15:43 98.1 F 77 16 118/61 08/24/20 11:28 98.4 F 104 H 20 164/80 BP Pulse Ox 08/24/20 21:00 96 08/24/20 20:30 93 L 08/24/20 20:00 94 L 08/24/20 19:30 96 08/24/20 19:00 93 L 08/24/20 18:30 94 L 08/24/20 18:00 97 08/24/20 17:30 95 08/24/20 17:03 89 L 08/24/20 16:45 113/56 97 08/24/20 16:30 118/58 97 08/24/20 16:15 119/59 97 08/24/20 16:00 117/59 97 08/24/20 15:43 97 08/24/20 11:28 172/93 95 Intake and Output 08/24/20 08/24/20 08/24/20 06:59 14:59 22:59 Intake Total 1202 630 Output Total 500 Balance 1202 130 Intake: IV 1202 0 Oral 630 Output: Drainage 5 Left Neck 5 Urine 445 Estimated Blood Loss 50 Other: Voiding Method Indwelling Catheter Weight 110.9 kg ABP, PAP, CO, CI - Last 8 Hours Arterial Blood Pressure 128/65 Arterial Blood Pressure 106/52 Arterial Blood Pressure 110/53 Arterial Blood Pressure 110/52 Arterial Blood Pressure 107/51 Arterial Blood Pressure 108/61 Arterial Blood Pressure 116/57 Arterial Blood Pressure 113/56 Results CBC & Chem 7: 08/24/20 19:20 08/24/20 19:20 Labs: Abnormal Lab Results - Last 24 Hours (Table) 08/24/20 08/24/20 08/24/20 Range/Units 17:03 19:20 19:20 Hgb 11.9 L (13.0-17.5) gm/dL Hct 36.4 L (39.0-53.0) % MCV 77.7 L (80.0-100.0) fL RDW 17.7 H (11.5-15.5) % Plt Count 131 L (150-450) k/uL Lymphocytes # 0.4 L (1.0-4.8) k/uL Glucose 143 H (74-99) mg/dL POC Glucose (mg/dL) 116 H (75-99) mg/dL Calcium 8.3 L (8.4-10.2) mg/dL
[2020-08-24] MEDS: HEPARIN SODIUM,PORCINE 5,000 UNIT/ML 1 ML VIAL SQ SCH (23:44)
[2020-08-25 04:52] LABS: Anisocytosis Slight; HCT 34.1 % (39.0-53.0); HGB 11.3 gm/dL (13.0-17.5); MCH 25.3 pg (25.0-35.0); MCHC 33.1 g/dL (31.0-37.0); MCV 76.6 fL (80.0-100.0); Mean Platelet Volume 7.2; Microcytosis Slight; Platelet Count 135 k/uL (150-450); RBC 4.45 m/uL (4.30-5.90); RDW 17.9 % (11.5-15.5); WBC 6.2 k/uL (3.8-10.6)
[2020-08-25 04:55] LABS: Calcium 8.3 mg/dL (8.4-10.2); Potassium 4.4 mmol/L (3.5-5.1)
[2020-08-25] MEDS ORDERED: amLODIPine 10 MG TAB PO SCH (09:00)
[2020-08-25] MEDS ORDERED: ASPIRIN 81 MG PO SCH (09:00)
[2020-08-25] MEDS ORDERED: SERTRALINE 50 MG TAB PO SCH (09:00)
[2020-08-25] MEDS: HEPARIN SODIUM,PORCINE 5,000 UNIT/ML 1 ML VIAL SQ SCH (09:08)
[2020-08-25] MEDS ORDERED: CLOPIDOGREL 75 MG TAB PO SCH (09:15)
[2020-08-25 10:16] VITALS: TEMP 98.7
--- NOTE | 2020-08-25 10:28 | P.CNPUL ---
History of Present Illness Consult date: 08/25/20 Requesting physician: Luis Salazar Chief complaint: Left carotid stenosis History of present illness: 75-year-old male patient with history of left carotid stenosis greater than 90% in the left carotid artery, history of CAD with history of 2 drug-eluting stents to the proximal and mid RCA in 2011, past history of GI bleeding, ulcerative colitis, hypertension, hyperlipidemia, former smoker, who underwent carotid en darterectomy with patch angioplasty on 08/24/2020. Patient was monitored in the ICU following his surgery, this morning receiving the patient in the intensive care unit, he is awake alert, oriented 3, hemodynamically patient is stable, he is in sinus mechanism, he is not requiring any vasoactive drips. He's an appointment with saline at 10 ML per hour, no other drips, sinus rhythm rate of 68 BPM, lungs are clear, no complaints of shortness of breath, no cough, his lactic incision is covered with surgical dressing, there is a TIFFANY drain compressed and draining, minimal output since surgery. Incision is clean dry and intact, soft, no tracheal deviation, neurologically patient is intact. This morning's lab work has been reviewed hemoglobin is 11.3, white blood cell count is 6.2, sodium is 133, the rest of electrolytes and renal profile are unremarkable. Review of Systems All systems: negative Constitutional: Denies chills, Denies fever Eyes: denies blurred vision, denies pain Ears, nose, mouth and throat: Denies headache, Denies sore throat Cardiovascular: Denies chest pain, Denies shortness of breath Respiratory: Denies cough Gastrointestinal: Denies abdominal pain, Denies diarrhea, Denies nausea, Denies vomiting Musculoskeletal: Denies myalgias Integumentary: Denies pruritus, Denies rash Neurological: Denies numbness, Denies weakness Psychiatric: Denies anxiety, Denies depression Endocrine: Denies fatigue, Denies weight change Past Medical History Past Medical History: Coronary Artery Disease (CAD), Hyperlipidemia, H ypertension, Prostate Disorder, Sleep Apnea/CPAP/BIPAP Additional Past Medical History / Comment(s): bruising easily since recently started on plavix-pt to call Dr Salazar, no cpap used, colitis, diverticulitis, tung carotid blockage, HAS 2 HEART STENTS IN, HAS A CYST ON KIDNEY THEY R WATCHING History of Any Multi-Drug Resistant Organisms: None Reported Past Surgical History: Ear Surgery, Heart Catheterization With Stent, Orthopedic Surgery Additional Past Surgical History / Comment(s): 2 cardiac stents, ORIF rt wrist, skin graft left eardrum, surgery for deviated septum, rt cataract, surgery to remove a growth on scrotum Past Anesthesia/Blood Transfusion Reactions: No Reported Reaction Additional Past Anesthesia/Blood Transfusion Reaction / Comment(s): JEHOVAHS WITNESS-NO BLOOD TRANSFUSIONS Date of Last Stent Placement:: 01/31/2017 Past Psychological History: Depression Smoking Status: Former smoker Past Alcohol Use History: Rare Additional Past Alcohol Use History / Comment(s): quit smoking 20 yrs ago, smoke d for 30 yrs, 1 PPD Past Drug Use History: None Reported - Past Family History Sister(s) Family Medical History: Cancer Brother(s) Family Medical History: Cancer Medications and Allergies Home Medications Medication Instructions Recorded Confirmed Type Ascorbic Acid [Vitamin C] 1,000 mg PO DAILY 02/15/18 08/24/20 History Aspirin EC [Ecotrin Low Dose] 81 mg PO HS 02/15/18 08/24/20 History Cholecalciferol [Vitamin D3 (25 1,000 unit PO DAILY 02/15/18 08/24/20 History Mcg = 1000 Iu)] Sertraline [Zoloft] 50 mg PO DAILY 02/15/18 08/24/20 History Tamsulosin HCl [Flomax] 0.4 mg PO HS 02/15/18 08/24/20 History Cyanocobalamin [Vitamin B-12] 500 mcg PO DAILY 04/08/20 08/24/20 History Fluticasone Propionate 2 spray EA NOSTRIL HS 04/08/20 08/24/20 History Rosuvastatin [Crestor] 10 mg PO HS 04/08/20 08/24/20 History amLODIPine BESYLATE 10 mg PO DAILY 04/08/20 08/24/20 History traZODone HCL 50 mg PO HS 04/08/20 08/24/20 History Clopidogrel [Plavix] 75 mg PO DAILY 08/20/20 08/24/20 History Fish Oil/Dha/Epa [Fish Oil 1,200 1 each PO DAILY 08/20/20 08/24/20 History mg Fish Oil] Losartan Potassium [Cozaar] 50 mg PO HS 08/20/20 08/24/20 History sulfaSALAzine [Sulfasalazine Dr] 1,000 mg PO BID 08/20/20 08/24/20 History Allergies Allergy/AdvReac Type Severity Reaction Status Date / Time lisinopril Allergy Anaphylaxis Verified 08/24/20 11:24 Physical Exam Vitals: Vital Signs Temp Pulse Pulse Pulse Resp BP BP 08/25/20 10:00 60 21 118/86 08/25/20 09:00 60 18 150/73 08/25/20 08:00 98.7 F 72 26 H 151/84 08/25/20 07:00 64 22 169/77 08/25/20 06:00 75 16 132/73 08/25/20 05:00 67 18 136/76 08/25/20 04:00 98.2 F 67 14 08/25/20 03:00 72 16 08/25/20 02:00 67 22 08/25/20 01:00 73 20 08/25/20 00:00 98.4 F 73 21 08/24/20 23:53 21 08/24/20 23:30 72 08/24/20 23:00 71 21 08/24/20 22:30 73 08/24/20 22:00 70 22 08/24/20 21:30 74 08/24/20 21:00 76 20 08/24/20 20:30 70 19 08/24/20 20:00 98.1 F 68 21 102/59 08/24/20 19:30 68 18 102/59 08/24/20 19:00 76 17 107/63 08/24/20 18:30 80 16 107/63 08/24/20 18:00 68 15 08/24/20 17:30 69 10 L 99/58 08/24/20 17:03 71 21 100/61 08/24/20 16:45 66 16 106/61 08/24/20 16:30 64 16 106/58 08/24/20 16:15 64 16 106/61 08/24/20 16:00 66 16 106/58 08/24/20 15:43 98.1 F 77 16 118/61 08/24/20 11:28 98.4 F 104 H 20 164/80 BP Pulse Ox 08/25/20 10:00 08/25/20 09:00 08/25/20 08:00 08/25/20 07:00 93 L 08/25/20 06:00 95 08/25/20 05:00 93 L 08/25/20 04:00 94 L 08/25/20 03:00 92 L 08/25/20 02:00 94 L 08/25/20 01:00 94 L 08/25/20 00:00 94 L 08/24/20 23:53 08/24/20 23:30 94 L 08/24/20 23:00 93 L 08/24/20 22:30 94 L 08/24/20 22:00 94 L 08/24/20 21:30 97 08/24/20 21:00 96 08/24/20 20:30 93 L 08/24/20 20:00 94 L 08/24/20 19:30 96 08/24/20 19:00 93 L 08/24/20 18:30 94 L 08/24/20 18:00 97 08/24/20 17:30 95 08/24/20 17:03 89 L 08/24/20 16:45 113/56 97 08/24/20 16:30 118/58 97 08/24/20 16:15 119/59 97 08/24/20 16:00 117/59 97 08/24/20 15:43 97 08/24/20 11:28 172/93 95 Intake and Output 08/24/20 08/25/20 08/25/20 22:59 06:59 14:59 Intake Total 630 290 Output Total 550 495 285 Balance 80 -495 5 Intake: IV 0 Oral 630 290 Output: Drainage 5 Left Neck 5 Urine 495 495 285 Estimated Blood Loss 50 Other: Voiding Method Indwelling Catheter Indwelling Catheter Weight 111.4 kg ABP, PAP, CO, CI - Last 8 Hours Arterial Blood Pressure 138/67 Arterial Blood Pressure 125/61 Arterial Blood Pressure 118/57 GENERAL EXAM: Alert, very pleasant, 76-year-old white male, on room air, 93%, comfortable in no apparent distress. HEAD: Normocephalic/atraumatic. EYES: Normal reaction of pupils, equal size. Conjunctiva pink, sclera white. NOSE: Clear with pink turbinates. THROAT: No erythema or exudates. NECK: No masses, no JVD, no thyroid enlargement, no adenopathy. Left neck incision is clean dry and intact, covered with surgical dressing, soft, no tracheal deviation no hematoma. TIFFANY drain in the left neck, draining minimal amount of serosanguineous output CHEST: No chest wall deformity. Symmetrical expansion. LUNGS: Equal air entry with no crackles, wheeze, rhonchi or dullness. CVS: Regular rate and rhythm, normal S1 and S2, no gallops, no murmurs, no rubs ABDOMEN: Soft, nontender. No hepatosplenomegaly, normal bowel sounds, no guarding or rigidity. EXTREMITIES: No clubbing, no edema, no cyanosis, 2+ pulses and upper and lower extremities. MUSCULOSKELETAL: Muscle strength and tone normal. SPINE: No scoliosis or deformity SKIN: No rashes CENTRAL NERVOUS SYSTEM: Alert and oriented -3. No focal deficits, tone is normal in all 4 extremities. PSYCHIATRIC: Alert and oriented -3. Appropriate affect. Intact judgment and insight. Results - Laboratory Findings CBC and BMP: 08/25/20 04:08 08/25/20 04:08 Abnormal lab findings: Abnormal Labs 08/24/20 08/24/20 08/24/20 17:03 19:20 19:20 Hgb 11.9 L Hct 36.4 L MCV 77.7 L RDW 17.7 H Plt Count 131 L Lymphocytes # 0.4 L Sodium Glucose 143 H POC Glucose (mg/dL) 116 H Calcium 8.3 L 08/25/20 08/25/20 04:08 04:08 Hgb 11.3 L Hct 34.1 L MCV 76.6 L RDW 17.9 H Plt Count 135 L Lymphocytes # Sodium 133 L Glucose 110 H POC Glucose (mg/dL) Calcium 8.3 L Assessment and Plan Plan: Assessment: #1. Left carotid stenosis greater than 90%, status post left carotid endarterectomy with patch angioplasty, postoperative day #1 #2. Coronary artery disease with history of stenting to the RCA in 2012 #3. History of diabetes mellitus type 2 #4. Hypertension #5. Hyperlipidemia #6. Former smoker #7. BPH #8. Obstructive sleep apnea and does not use a CPAP #9. History of ulcerative colitis #10. Previous history of GI bleeding Plan: Patient is doing well, has had no acute events overnight, hemodynamically stable, neurologically intact, no acute issues overnight, the labs have been reviewed, no specific complaints, increase activity as tolerated, anticipate discharge home today I performed a history & physical examination of the patient and discussed their management with my nurse practitioner, Leila Michaels. I reviewed the nurse practitioner's note and agree with the documented findings and plan of care. Lung sounds are positive for diminished breath sounds. The findings and the impression was discussed with the patient. I attest to the documentation by the nurse practitioner. Time with Patient: Greater than 30
--- NOTE | 2020-08-25 11:44 | P.DS ---
Providers Date of admission: 08/24/20 10:14 Expected date of discharge: 08/25/20 Attending physician: Luis Salazar DO Consults: 08/24/20 15:29 Consult Physician Routine Consulting Provider: Will Regalado Reason/Comments: icu care Do you want consulting provider notified?: Yes Primary care physician: [facility] Course: This is a 75-year-old male patient who came in for elective left carotid endarterectomy with patch angioplasty yesterday with Dr. Salazar for greater than 90% stenosis of the left internal carotid artery seen on ultrasound and CT angiogram. His past medical conditions include coronary artery disease with stent placement 2016, hypertension, hyperlipidemia, BPH, obstructive sleep apnea diverticulosis and bilateral carotid stenosis. He is postop day #1 4 and left carotid endarterectomy with patch angioplasty. The patient states he has no pain, no focal deficits. He tolerated a regular diet. Daley catheter has been discontinued and he has voided. He did have some noted blood with a blood clot with urination. Nursing also stated he had some hematuria that resolved yesterday evening. Assessment: General appearance: The patient is alert, oriented, in no acute distress. HET: Head is normocephalic and atraumatic. Neck: Supple without lymphadenopathy. Trachea midline. Left-sided neck with d ressing clean dry and intact with TIFFANY drain. Heart: S1 S2. Regular rate and rhythm. Lungs: Clear to auscultation. Abdomen: Soft, nontender, nondistended. Extremities: Normal skin color and turgor. No cyanosis, rash, ulceration, clubbing, or edema. Radial and pedal pulses are 2/4 bilaterally. Neurological: No focal deficits. Strength and sensation are grossly intact. No upper or lower extremity weakness. Assessment: 1. Postop day #1 left carotid endarterectomy with patch angioplasty 2. Left internal carotid artery stenosis greater than 90% 3. Coronary artery disease 4. Hypertension 5. Hyperlipidemia 6. Obstructive sleep apnea 7. BPH Plan: TIFFANY drain removal. Daley catheter removed. Patient to be discharged home on aspirin, Plavix, and statin. Instructed may shower tomorrow. No heavy lifting or strenuous activity until further evaluated by Dr. Salazar. Follow-up in [address] Salazar. Follow-up with urology as needed Procedures: Left internal artery carotid arterectomy with patch angioplasty Patient Condition at Discharge: Good Plan - Discharge Summary Discharge Rx Participant: No New Discharge Prescriptions: Continue Tamsulosin HCl [Flomax] 0.4 mg PO HS Sertraline [Zoloft] 50 mg PO DAILY Cholecalciferol [Vitamin D3 (25 Mcg = 1000 Iu)] 1,000 unit PO DAILY Aspirin EC [Ecotrin Low Dose] 81 mg PO HS Ascorbic Acid [Vitamin C] 1,000 mg PO DAILY amLODIPine BESYLATE 10 mg PO DAILY Cyanocobalamin [Vitamin B-12] 500 mcg PO DAILY Fluticasone Propionate 2 spray EA NOSTRIL HS Rosuvastatin [Crestor] 10 mg PO HS traZODone HCL 50 mg PO HS Losartan Potassium [Cozaar] 50 mg PO HS Clopidogrel [Plavix] 75 mg PO DAILY sulfaSALAzine [Sulfasalazine Dr] 1,000 mg PO BID Fish Oil/Dha/Epa [Fish Oil 1,200 mg Fish Oil] 1 each PO DAILY Discharge Medication List Ascorbic Acid [Vitamin C] 1,000 mg PO DAILY 02/15/18 [History] Aspirin EC [Ecotrin Low Dose] 81 mg PO HS 02/15/18 [History] Cholecalciferol [Vitamin D3 (25 Mcg = 1000 Iu)] 1,000 unit PO DAILY 02/15/18 [History] Sertraline [Zoloft] 50 mg PO DAILY 02/15/18 [History] Tamsulosin HCl [Flomax] 0.4 mg PO HS 02/15/18 [History] Cyanocobalamin [Vitamin B-12] 500 mcg PO DAILY 04/08/20 [History] Fluticasone Propionate 2 spray EA NOSTRIL HS 04/08/20 [History] Rosuvastatin [Crestor] 10 mg PO HS 04/08/20 [History] amLODIPine BESYLATE 10 mg PO DAILY 04/08/20 [History] traZODone HCL 50 mg PO HS 04/08/20 [History] Clopidogrel [Plavix] 75 mg PO DAILY 08/20/20 [History] Fish Oil/Dha/Epa [Fish Oil 1,200 mg Fish Oil] 1 each PO DAILY 08/20/20 [History] Losartan Potassium [Cozaar] 50 mg PO HS 08/20/20 [History] sulfaSALAzine [Sulfasalazine Dr] 1,000 mg PO BID 08/20/20 [History] Follow up Appointment(s)/Referral(s): Luis Salazar DO [STAFF PHYSICIAN] - 2 Weeks
[2020-08-25 11:49] VITALS: BP 128/68; PULSE 70; RESP 23
== END 2020-08-25 13:47 | disposition home or self-care (01) | DRG 38 ==
LOC: 2ORMAIN 10:14 → 2SICU 16:14
PROVIDERS: ADMIT Surgery; ATTEND Surgery
PROC: 03UL0KZ Supplement Left Internal Carotid Artery with Nonautologous Tissue Substitute, Open Approach (ICD-10-PCS; 2020-08-24)
PROC: 03CL0ZZ Extirpation of Matter from Left Internal Carotid Artery, Open Approach (ICD-10-PCS; principal; 2020-08-24 10:55)
DX: I65.22 Occlusion and stenosis of left carotid artery (principal); K51.90 Ulcerative colitis, unspecified, without complications; I10 Essential (primary) hypertension; Z87.891 Personal history of nicotine dependence; E11.9 Type 2 diabetes mellitus without complications; E78.5 Hyperlipidemia, unspecified; G47.00 Insomnia, unspecified; G47.33 Obstructive sleep apnea (adult) (pediatric); I25.10 Atherosclerotic heart disease of native coronary artery without angina pectoris; K57.30 Diverticulosis of large intestine without perforation or abscess without bleeding; N40.0 Benign prostatic hyperplasia without lower urinary tract symptoms; Z79.02 Long term (current) use of antithrombotics/antiplatelets; Z79.82 Long term (current) use of aspirin; Z79.899 Other long term (current) drug therapy; Z95.5 Presence of coronary angioplasty implant and graft
CPT/HCPCS: 80048; 85025; 85027; 88304; 88311

== ENCOUNTER 2020-08-25 20:22 | Emergency (ER) | payer MEDICARE ==
[2020-08-25 21:00] VITALS: TEMP 97.6
--- NOTE | 2020-08-25 21:54 | XR ---
EXAMINATION TYPE: XR KUB DATE OF EXAM: 08/25/2020 COMPARISON: 11/13/2017 HISTORY: Abdominal pain. TECHNIQUE: 2 views FINDINGS: There is no sign of intestinal obstruction or pneumoperitoneum. Fecal pattern is normal. Th ere is no evidence of a mass. There are no pathologic calcifications over the kidneys. Lung bases are clear. IMPRESSION: Nonacute abdomen. No adverse change.
[2020-08-25] MEDS ORDERED: SODIUM CHLORIDE 0.9% 1,000 ML IV STA ×2 (21:59)
[2020-08-25] MEDS ORDERED: MORPHINE SULFATE 4 MG/ML SYRINGE IV STA (21:59)
--- NOTE | 2020-08-25 22:08 | ED ---
Abdominal Pain HPI - General Chief Complaint: Abdominal Pain Stated Complaint: Post op fever/High BP Time Seen by Provider: 08/25/20 21:38 Source: patient, RN notes reviewed Mode of arrival: ambulatory Limitations: no limitations - History of Present Illness Initial Comments: Patient is a 75-year-old male that presents to emergency department complaining of constipation for 2 days. He noted that he recently had carotid surgery. He did note that he takes narcotics for a couple days. He stated that he was uncomfortable, not really any pain. He noted that he did want an enema to help move things along. Patient was in mild distress and discomfort while standing up in the room during exam and interview. He denied any nausea vomiting diarrhea fever fatigue chills chest pain shortness of breath. - Related Data Home Medications Medication Instructions Recorded Confirmed Ascorbic Acid [Vitamin C] 1,000 mg PO DAILY 02/15/18 08/25/20 Aspirin EC [Ecotrin Low Dose] 81 mg PO HS 02/15/18 08/25/20 Cholecalciferol [Vitamin D3 (25 1,000 unit PO DAILY 02/15/18 08/25/20 Mcg = 1000 Iu)] Sertraline [Zoloft] 50 mg PO DAILY 02/15/18 08/25/20 Tamsulosin HCl [Flomax] 0.4 mg PO HS 02/15/18 08/25/20 Cyanocobalamin [Vitamin B-12] 500 mcg PO DAILY 04/08/20 08/25/20 Fluticasone Propionate 2 spray EA NOSTRIL HS 04/08/20 08/25/20 Rosuvastatin [Crestor] 10 mg PO HS 04/08/20 08/25/20 amLODIPine BESYLATE 10 mg PO DAILY 04/08/20 08/25/20 traZODone HCL 50 mg PO HS 04/08/20 08/25/20 Clopidogrel [Plavix] 75 mg PO DAILY 08/20/20 08/25/20 Fish Oil/Dha/Epa [Fish Oil 1,200 1 cap PO DAILY 08/20/20 08/25/20 mg Fish Oil] Losartan Potassium [Cozaar] 50 mg PO HS 08/20/20 08/25/20 sulfaSALAzine [Sulfasalazine Dr] 1,000 mg PO BID 08/20/20 08/25/20 Previous Rx's Medication Instructions Recorded Magnesium Hydroxide [Milk of 400 mg PO BID 10 Days #100 ml 08/26/20 Magnesia] Allergies Allergy/AdvReac Type Severity Reaction Status Date / Time lisinopril Allergy Anaphylaxis Verified 08/25/20 23:32 Review of Systems ROS Statement: Those systems with pertinent positive or pertinent negative responses have been documented in the HPI. ROS Other: All systems not noted in ROS Statement are negative. Past Medical History Past Medical History: Coronary Artery Disease (CAD), Hyperlipidemia, Hypertension, Prostate Disorder, Sleep Apnea/CPAP/BIPAP Additional Past Medical History / Comment(s): bruising easily since recently started on plavix-pt to call Dr Salazar, no cpap used, colitis, diverticulitis, tung carotid blockage, HAS 2 HEART STENTS IN, HAS A CYST ON KIDNEY THEY R WATCHING History of Any Multi-Drug Resistant Organisms: None Reported Past Surgical History: Ear Surgery, Heart Catheterization With Stent, Orthopedic Surgery Additional Past Surgical History / Comment(s): 2 cardiac stents, ORIF rt wrist, skin graft left eardrum, surgery for deviated septum, rt cataract, surgery to remove a growth on scrotum Past Anesthesia/Blood Transfusion Reactions: No Reported Reaction Additional Past Anesthesia/Blood Transfusion Reaction / Comment(s): JEHOVAHS WITNESS-NO BLOOD TRANSFUSIONS Date of Last Stent Placement:: 01/31/2017 Past Psychological History: Depression Smoking Status: Former smoker Past Alcohol Use History: Rare Past Drug Use History: None Reported - Past Family History Sister(s) Family Medical History: Cancer Brother(s) Family Medical History: Cancer General Exam Limitations: no limitations General appearance: alert, in no apparent distress Head exam: Present: atraumatic, normocephalic, normal inspection Eye exam: Present: normal appearance, PERRL, EOMI. Absent: scleral icterus, conjunctival injection, periorbital swelling ENT exam: Present: normal exam, mucous membranes moist Neck exam: Present: normal inspection. Absent: tenderness, meningismus, lymphadenopathy Respiratory exam: Present: normal lung sounds bilaterally. Absent: respiratory distress, wheezes, rales, rhonchi, stridor Cardiovascular Exam: Present: regular rate, normal rhythm, normal heart sounds. Absent: systolic murmur, diastolic murmur, rubs, gallop, clicks GI/Abdominal exam: Present: soft, distended, normal bowel sounds. Absent: tenderness, guarding, rebound, rigid Extremities exam: Present: normal inspection, full ROM, normal capillary refill. Absent: tenderness, pedal edema, joint swelling, calf tenderness Neurological exam: Present: alert, oriented X3, CN II-XII intact Psychiatric exam: Present: normal affect, normal mood Skin exam: Present: warm, dry, intact, normal color. Absent: rash Course Vital Signs 08/25/20 08/25/20 20:57 23:36 Temperature 97.6 F Pulse Rate 104 H 99 Respiratory 22 18 Rate Blood Pressure 194/101 141/91 O2 Sat by Pulse 94 L 99 Oximetry Medical Decision Making - Medical Decision Making 75-year-old male complaining of constipation and abdominal discomfort. CT of the abdomen and pelvis, labs, 4 mg of morphine, normal saline ordered Labs ordered. Unremarkable. CT showed mild fecal impaction and urinary bladder distention. Ordered Daley catheter, and enema. If enema doesn't work try to manually disimpact. Manual disimpaction didn't express any fecal matter. Daley catheter was placed and got approximately 2 L of urine. Case discussed with Dr. Fields, patient can discharge home with a leg Daley and follow-up to urology. - Lab Data Result diagrams: 08/25/20 22:11 08/25/20 22:11 Lab Results 08/25/20 08/25/20 Range/Units 22:11 22:11 WBC 9.3 (3.8-10.6) k/uL RBC 5.33 (4.30-5.90) m/uL Hgb 13.2 (13.0-17.5) gm/dL Hct 40.4 (39.0-53.0) % MCV 75.7 L (80.0-100.0) fL MCH 24.7 L (25.0-35.0) pg MCHC 32.7 (31.0-37.0) g/dL RDW 17.9 H (11.5-15.5) % Plt Count 155 (150-450) k/uL MPV 7.2 Neutrophils % 76 % Lymphocytes % 13 % Monocytes % 7 % Eosinophils % 2 % Basophils % 1 % Neutrophils # 7.0 (1.3-7.7) k/uL Lymphocytes # 1.2 (1.0-4.8) k/uL Monocytes # 0.7 (0-1.0) k/uL Eosinophils # 0.2 (0-0.7) k/uL Basophils # 0.1 (0-0.2) k/uL Anisocytosis Slight Microcytosis Moderate Sodium 133 L (137-145) mmol/L Potassium 4.7 (3.5-5.1) mmol/L Chloride 99 (98-107) mmol/L Carbon Dioxide 20 L (22-30) mmol/L Anion Gap 14 mmol/L BUN 24 H (9-20) mg/dL Creatinine 1.54 H (0.66-1.25) mg/dL Est GFR (CKD-EPI)AfAm 51 (>60 ml/min/1.73 sqM) Est GFR (CKD-EPI)NonAf 44 (>60 ml/min/1.73 sqM) Glucose 118 H (74-99) mg/dL Calcium 9.6 (8.4-10.2) mg/dL Total Bilirubin 0.7 (0.2-1.3) mg/dL AST 29 (17-59) U/L ALT 15 (4-49) U/L Alkaline Phosphatase 91 (38-126) U/L Creatine Kinase 408 H (55-170) U/L Total Protein 8.0 (6.3-8.2) g/dL Albumin 4.7 (3.5-5.0) g/dL Amylase 82 (30-110) U/L Lipase 176 (23-300) U/L - Radiology Data Radiology results: report reviewed, image reviewed KUB: Nonacute abdomen. No adverse change. CT of the abdomen and pelvis:Dilated urinary bladder with mild hydronephrosis and hydroureter ureter probably due to chronic bladder outlet obstruction. Mild rectal fecal impaction. Lower abdominal aortic aneurysm Disposition Clinical Impression: Urinary retention, Constipation Disposition: HOME SELF-CARE Condition: Stable Instructions (If sedation given, give patient instructions): Urinary Retention in Men (ED) Additional Instructions: Please return to the Emergency Department if symptoms worsen or any other concerns. Follow-up with primary care in 2-4 days. Follow-up with urology to have leg Daley removed in 2 days. Take milk Magnesia as prescribed to help with bowel movements. Prescriptions: Magnesium Hydroxide [Milk of Magnesia] 400 mg PO BID 10 Days #100 ml Is patient prescribed a controlled substance at d/c from ED?: No Referrals: Kahlil Bliss DO [Primary Care Provider] - 1-2 days Gualberto Shields MD [STAFF PHYSICIAN] - 1-2 days Time of Disposition: 01:36
[2020-08-25 22:19] LABS: Anisocytosis Slight; Basophils # (A) 0.1 k/uL (0-0.2); Basophils % (A) 1 %; Eosinophils # (A) 0.2 k/uL (0-0.7); Eosinophils % (A) 2 %; HCT 40.4 % (39.0-53.0); HGB 13.2 gm/dL (13.0-17.5); Lymphocytes # (A) 1.2 k/uL (1.0-4.8); Lymphocytes % (A) 13 %; MCH 24.7 pg (25.0-35.0); MCHC 32.7 g/dL (31.0-37.0); MCV 75.7 fL (80.0-100.0); Mean Platelet Volume 7.2; Microcytosis Moderate; Monocytes # (A) 0.7 k/uL (0-1.0); Monocytes % (A) 7 %; Neutrophils % (A) 76 %; Platelet Count 155 k/uL (150-450); RBC 5.33 m/uL (4.30-5.90); RDW 17.9 % (11.5-15.5); WBC 9.3 k/uL (3.8-10.6)
[2020-08-25 22:29] LABS: Albumin 4.7 g/dL (3.5-5.0); Calcium 9.6 mg/dL (8.4-10.2); Potassium 4.7 mmol/L (3.5-5.1); Total Bilirubin 0.7 mg/dL (0.2-1.3)
--- NOTE | 2020-08-25 23:04 | CT ---
EXAMINATION TYPE: CT abdomen pelvis w con DATE OF EXAM: 08/25/2020 COMPARISON: None HISTORY: post op fever high bp CT DLP: 1722.4 mGycm Automated exposure control for dose reduction was used. CONTRAST: Performed with IV Contrast, patient injected with 80 mL of Isovue 370. Images obtained from the diaphragm to the floor the pelvis with IV contrast. Lung bases are clear. There is no pleural effusion. Heart size is normal. There is no pericardial eff usion. Stomach is intact. Liver spleen pancreas appear intact. The bile ducts are not dilated. Gallbladder a ppears normal. There is no adrenal mass. Kidneys have normal size. There is mild bilateral hydronephrosis and hydrou reter. The urinary bladder is dilated. Urinary bladder measures 17 cm. Prostate is measuring 5 cm. Th ere is no inguinal hernia. There is no free fluid in the pelvis. There is some retained fecal materia l in the rectum that measures 5.5 cm. There are a few diverticula in the descending colon and sigmoid colon. I see no sign of diverticulitis. There is 3 cm cortical cyst lateral right kidney. There is m inimal bilateral perinephric fat stranding. Appendix is not seen. There is no sign of thickened appen mary. Lumbar vertebra have normal alignment. There is disc space narrowing from L3 to S1 with vacuum disc a nd spur formation. There is no lumbar compression fracture. 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 There is some thrombus on the anterior wall. The bony pelvis is intact. Hip joints are intact. IMPRESSION: Dilated urinary bladder with mild hydronephrosis and hydroureter probably due to chronic bladder outl et obstruction. Mild rectal fecal impaction. Lower abdominal aortic aneurysm.
[2020-08-25] MEDS ORDERED: SENNOSIDES-DOCUSATE SODIUM 1 EACH TAB PO STA (23:44)
[2020-08-26 02:09] VITALS: BP 146/86; PULSE 82; RESP 16
== END 2020-08-26 02:08 | disposition home or self-care (01) ==
LOC: EC 20:22
DX: R33.9 Retention of urine, unspecified (principal); K59.00 Constipation, unspecified; I10 Essential (primary) hypertension; I25.10 Atherosclerotic heart disease of native coronary artery without angina pectoris; E78.5 Hyperlipidemia, unspecified; F41.9 Anxiety disorder, unspecified; Z87.891 Personal history of nicotine dependence
CPT/HCPCS: 36415; 80053; 82150; 82550; 83690; 85025; 74018; 74177; 99284; 96374; 96361; J2270; Q9967

== ENCOUNTER → 2021-12-16 | Outpatient (CLI) | payer MEDICARE ==
--- NOTE | 2021-12-16 14:51 | CT ---
EXAMINATION TYPE: CT angio neck DATE OF EXAM: 12/16/2021 HISTORY: Carotid stenosis COMPARISON: 07/07/2020 CT DLP: 452.2 mGycm. Automated Exposure Control for Dose Reduction was Utilized. TECHNIQUE: CTA scan of the neck is performed with IV Contrast, patient injected with 65 ML mL of Iso jasiel 370, axial images are obtained, coronal and sagittal reformatted images are reviewed. Three-D rec onstructed images are created on an independent workstation and reviewed. Source images are reviewed . FINDINGS: Carotid/Vascular Structures: There is a three-vessel arch. Dominant left vertebral artery. Vascular c alcification within the right vertebral artery, this may be obstructed. There is calcification of th e right carotid bifurcation. This has less than 50% narrowing. However, there may be a small ulcer wi thin the posterior plaque, example image series 8 image 81. Other: Note made of uncovertebral joint hypertrophy and severe foraminal stenosis on the left and rig ht. Dedicated imaging of the cervical spine could be performed with MRI or CT as clinically indicated . IMPRESSION: 1. There is approximately 42% narrowing of the proximal right internal carotid artery origin. Atherom atous plaquing may contain an ulceration posteriorly. 2. Vertebral artery may be obstructed bowel that is more proximal portion. Contrast is evident within the distal portion. Left vertebral artery appears dominant NASCET criteria was used in interpretation of this exam?
== END | disposition home or self-care (01) ==
LOC: RADCTMAIN 09:09
PROVIDERS: ATTEND Surgery
DX: I65.23 Occlusion and stenosis of bilateral carotid arteries (principal)
CPT/HCPCS: 82565; 84520; 70498; 36415; Q9967

== ENCOUNTER 2022-04-01 09:10 | Day surgery (SDC) | payer MEDICARE ==
[2022-04-01 09:49] VITALS: TEMP 96.9
[2022-04-01] MEDS ORDERED: PROPOFOL 10 MG/ML 20 ML VIAL IV ONE (10:46)
--- NOTE | 2022-04-01 11:06 | P.PCN ---
Date of Procedure: 04/01/22 Procedure(s) Performed: BRIEF HISTORY: Patient is a 77-year-old pleasant white male scheduled for an elective colonoscopy as a part of surveillance of prior history of colon polyps and history of ulcerative colitis PROCEDURE PERFORMED: Colonoscopy with biopsy and snare polypectomy. PREOPERATIVE DIAGNOSIS: History of ulcerative colitis and prior history of colon. IV sedation per Anesthesia. PROCEDURE: After informed consent was obtained, the patient, was brought into the endoscopy unit. IV sedation was administered by Anesthesia under continuous monitoring. Digital rectal examination was normal. Initially the Olympus CF-160 flexible video colonoscope was then inserted in the rectum, gradually advanced into the cecum without any difficulty. Careful examination was performed as the scope was gradually being withdrawn. Ileocecal valve and the appendiceal orifice were visualized and appeared normal. Prep was good.. Mucosa of the cecum, ascending colon, appeared normal. The transverse colon there was a 5-6 mm polyp that was removed by snare polypectomy. Rest of the transverse colon, descending colon, sigmoid colon, and rectum appeared normal. Scattered sigmoid diverticulosis. Random biopsies were done from cecum to rectum at every 10 cm into well. Retroflexion was performed in the rectum and no lesions were seen. The patient tolerated the procedure well. IMPRESSION: 5-6 mm transverse colon polyp status post polypectomy Scattered sigmoid diverticulosis No evidence of active colitis RECOMMENDATIONS: Findings of this examination were discussed with the patient as well as his family. He was advised to follow with the biopsy results and have a repeat colonoscopy in 5 years..
[2022-04-01 11:39] VITALS: BP 154/78; PULSE 68; RESP 20
== END 2022-04-01 11:41 | disposition home or self-care (01) ==
LOC: ORWHC2ENDO 09:10
PROVIDERS: ATTEND Internal Medicine Gastroenterology
DX: Z12.11 Encounter for screening for malignant neoplasm of colon (principal); D12.3 Benign neoplasm of transverse colon; K57.30 Diverticulosis of large intestine without perforation or abscess without bleeding; K52.9 Noninfective gastroenteritis and colitis, unspecified; K62.89 Other specified diseases of anus and rectum; I25.10 Atherosclerotic heart disease of native coronary artery without angina pectoris; I10 Essential (primary) hypertension; Z79.899 Other long term (current) drug therapy
CPT/HCPCS: 88305; 45380; 45385; J2704

== ENCOUNTER → 2022-09-16 | Outpatient (CLI) | payer MEDICARE ==
--- NOTE | 2022-09-16 16:28 | CT ---
EXAMINATION TYPE: CT angio chest DATE OF EXAM: 09/16/2022 COMPARISON: CT chest October 21, 2016 HISTORY: aortic aneurysm CT DLP: 1003 mGycm. Automated Exposure Control for Dose Reduction was Utilized. CONTRAST: CTA scan of the thorax is performed without and with IV Contrast, patient injected with 80cc mL of Is ovue 370, aneurysm protocol. 3D reconstructed images are created on an independent workstation and re viewed. FINDINGS: LUNGS: Focal scarring anterior right upper lobe axial Image 51 is redemonstrated. No suspicious focal consolidation or groundglass opacity. There is no pleural effusion or pneumothorax seen. The trac heobronchial tree is patent. MEDIASTINUM: There is satisfactory enhancement of the pulmonary artery and its branches, there is no CT evidence for pulmonary embolism. Moderate to severe mixed plaque in the aortic arch extends into the descending aorta. Ascending aorta measures up to 3.9 cm the level of right pulmonary artery axial image 73. There are no greater than 1 cm hilar or mediastinal lymph nodes. Trace pericardial effusio n again seen. Three-vessel coronary artery calcification and/or stents are redemonstrated. No cardiom egaly. OTHER: There are simple thin-walled cysts in the right kidney. Cortical thinning in the bilateral kid neys. Disc space narrowing with endplate sclerosis at the T12-L1 level. IMPRESSION: There is ascending aortic aneurysm up to 3.9 cm. Severe peripheral plaque in the descendi ng aorta is noted.
== END | disposition home or self-care (01) ==
LOC: RADCTMAIN 14:48
PROVIDERS: ATTEND Family Medicine
DX: I71.21 Aneurysm of the ascending aorta, without rupture (principal); I70.0 Atherosclerosis of aorta
CPT/HCPCS: 82565; 84520; 71275; 36415; Q9967

== ENCOUNTER 2023-02-06 00:57 | Emergency (ER) | payer MEDICARE ==
[2023-02-06 01:16] VITALS: RESP 18; TEMP 97.9
[2023-02-06] MEDS ORDERED: LIDOCAINE 1% INJ 10MG/ML (20 ML MDV) SQ ONE (01:54)
[2023-02-06] MEDS ORDERED: FAMOTIDINE 20 MG TAB PO STA (01:55)
--- NOTE | 2023-02-06 02:09 | ED ---
Wound/Laceration HPI - General Chief Complaint: Wound/Laceration Stated Complaint: injury to rt forearm Time Seen by Provider: 02/06/23 01:22 Source: patient Mode of arrival: ambulatory Limitations: no limitations - History of Present Illness Initial Comments: Patient is a 78-year-old male who presents to the emergency department for laceration. Patient fell while walking into a bar late last night. He did not hit his head or lose consciousness. He has laceration to right forearm he is unsure what caused it. Patient put a Band-Aid on it and woke up in the middle of the night due to saturated Band-Aid. He reports minimal pain. No numbness or tingling. Tetanus is up-to-date - Related Data Home Medications Medication Instructions Recorded Confirmed Ascorbic Acid [Vitamin C] 1,000 mg PO DAILY 02/15/18 04/01/22 Aspirin EC [Ecotrin Low Dose] 81 mg PO HS 02/15/18 04/01/22 Cholecalciferol [Vitamin D3 (25 1,000 unit PO DAILY 02/15/18 04/01/22 Mcg = 1000 Iu)] Sertraline [Zoloft] 50 mg PO DAILY 02/15/18 04/01/22 Tamsulosin HCl [Flomax] 0.4 mg PO DAILY 02/15/18 04/01/22 Rosuvastatin [Crestor] 10 mg PO HS 04/08/20 04/01/22 amLODIPine BESYLATE 10 mg PO DAILY 04/08/20 04/01/22 traZODone HCL 50 mg PO HS 04/08/20 04/01/22 Losartan Potassium [Cozaar] 50 mg PO HS 08/20/20 04/01/22 sulfaSALAzine [S[address]] 1,000 mg PO BID 08/20/20 04/01/22 Unk Multivitamin 1 tab PO DAILY 03/29/22 04/01/22 Allergies Allergy/AdvReac Type Severity Reaction Status Date / Time lisinopril Allergy Anaphylaxis Verified 02/06/23 01:17 Review of Systems ROS Statement: Those systems with pertinent positive or pertinent negative responses have been documented in the HPI. ROS Other: All systems not noted in ROS Statement are negative. Past Medical History Past Medical History: Coronary Artery Disease (CAD), Hyperlipidemia, Hypertension, Prostate Disorder, Sleep Apnea/CPAP/BIPAP Additional Past Medical History / Comment(s): bruising easily, no cpap used, colitis, diverticulitis, tung carotid blockage, HAS 2 HEART STENTS IN, HAS A CYST ON KIDNEY THEY R WATCHING, "bulge" in his chest Dr Salazar is watching. cant remember the name History of Any Multi-Drug Resistant Organisms: None Reported Past Surgical History: Ear Surgery, Heart Catheterization With Stent, Orthopedic Surgery Additional Past Surgical History / Comment(s): 2 cardiac stents, ORIF rt wrist, skin graft left eardrum, surgery for deviated septum, rt cataract, surgery to remove a growth on scrotum, left carotid endartectomy Past Anesthesia/Blood Transfusion Reactions: No Reported Reaction Additional Past Anesthesia/Blood Transfusion Reaction / Comment(s): JEHOVAHS WITNESS-NO BLOOD TRANSFUSIONS Date of Last Stent Placement:: 01/31/2017 Past Psychological History: Depression Smoking Status: Former smoker Past Alcohol Use History: None Reported Past Drug Use History: None Reported - Past Family History Sister(s) Family Medical History: Cancer Brother(s) Family Medical History: Cancer General Exam Limitations: no limitations General appearance: alert, in no apparent distress Respiratory exam: Present: normal lung sounds bilaterally. Absent: respiratory distress, wheezes, rales, rhonchi, stridor Cardiovascular Exam: Present: regular rate, normal rhythm, normal heart sounds. Absent: systolic murmur, diastolic murmur, rubs, gallop, clicks Neurological exam: Present: alert Psychiatric exam: Present: normal affect, normal mood Skin exam: Present: warm, dry, intact, normal color, other (2 cm laceration right forearm no deep structures visualized. Full range of motion neurovascularly intact). Absent: rash Course Vital Signs 02/06/23 02/06/23 01:15 02:27 Temperature 97.9 F Pulse Rate 66 60 Respiratory 18 18 Rate Blood Pressure 142/76 148/82 O2 Sat by Pulse 98 95 Oximetry Procedures - Laceration Laceration #1 Site: upper extremity Description: irregular Size of Sutures: 4-0 Number of Sutures: 4 Technique: simple, interrupted Patient Tolerated Procedure: well, no complications Medical Decision Making - Medical Decision Making Was pt. sent in by a medical professional or institution (, PA, FUR BLOWING MACHINE ATTENDANT, urgent care, hospital, or assisted...) When possible be specific @ -No Did you speak to anyone other than the patient for history (EMS, parent, family, police, friend...)? What history was obtained from this source @ -No Did you review nursing and triage notes (agree or disagree)? Why? @ -I reviewed and agree with nursing and triage notes Were old charts reviewed (outside hosp., previous admission, EMS record, old EKG, old radiological studies, urgent care reports/EKG's, assisted records)? Report findings @ -No old charts were reviewed Differential Diagnosis (chest pain, altered mental status, abdominal pain women, abdominal pain men, vaginal bleeding, weakness, fever, dyspnea, syncope, headache, dizziness, GI bleed, back pain, seizure, CVA, palpatations, mental health)? @ -Laceration, abrasion, fracture EKG interpreted by me (3pts min.). @ -As above X-rays interpreted by me (1pt min.). @ -None done CT interpreted by me (1pt min.). @ -None done U/S interpreted by me (1pt. min.). @ -None done What testing was considered but not performed or refused? (CT, X-rays, U/S, labs)? Why? @ -None What meds were considered but not given or refused? Why? @ -None Did you discuss the management of the patient with other professionals (professionals i.e. , PA, FUR BLOWING MACHINE ATTENDANT, lab, RT, psych nurse, social service director, health and safety inspector, teacher, executive vice president and chief operating officer, case preparer and liner)? Give summary @ -No Was smoking cessation discussed for >3mins.? @ -No Was critical care preformed (if so, how long)? @ -No Were there social determinants of health that impacted care today? How? (Homelessness, low income, unemployed, alcoholism, drug addiction, transportatio n, low edu. Level, literacy, decrease access to med. care, intermediate, rehab)? @ -No Was there de-escalation of care discussed even if they declined (Discuss DNR or withdrawal of care, Hospice)? DNR status @ -[No] What co-morbidities impacted this encounter? (DM, HTN, Smoking, COPD, CAD, Cancer, CVA, ARF, Chemo, Hep., AIDS, mental health diagnosis, sleep apnea, morbid obesity)? @ -[None] Was patient admitted / discharged? Hospital course, mention meds given and route, prescriptions, significant lab abnormalities, going to OR and other pertinent info. @ -Patient presents with laceration that is within window for closure. It was irrigated thoroughly well approximated with 4 sutures. Tetanus update indicated. Discussed wound care with patient in detail. He is to return in 7- 10 days for removal Undiagnosed new problem with uncertain prognosis? @ -[No] Drug Therapy requiring intensive monitoring for toxicity (Heparin, Nitro, Insulin, Cardizem)? @ -[No] Were any procedures done? @ - laceration repair Diagnosis/symptom? @ -Laceration Acute, or Chronic, or Acute on Chronic? @ -Acute Uncomplicated (without systemic symptoms) or Complicated (systemic symptoms)? @ -Uncomplicated Side effects of treatment? @ -[No] Exacerbation, Progression, or Severe Exacerbation? @ -[No] Poses a threat to life or bodily function? How? (Chest pain, [place], [place], pneumonia, PE, COPD, DKA, ARF, appy, cholecystitis, CVA, Diverticulitis, Homicidal, Suicidal, threat to staff... and all critical care pts) @ -[No] is my attending Disposition Clinical Impression: Laceration Disposition: HOME SELF-CARE Condition: Good Instructions (If sedation given, give patient instructions): Care For Your Stitches (ED), Laceration (ED) Additional Instructions: Leave wound uncovered. Keep wound clean and dry. Wash with a mild soap. Take Tylenol or anti-inflammatories such as Motrin for pain. Follow-up with primary care provider in 1-2 days. Return for suture removal in 7-10 days. Report back to the emergency department if you experience new, concerning, or worsening symptoms. Is patient prescribed a controlled substance at d/c from ED?: No Referrals: Kahlil Bliss DO [Primary Care Provider] - 1-2 days
[2023-02-06 02:28] VITALS: BP 148/82; PULSE 60
== END 2023-02-06 02:37 | disposition home or self-care (01) ==
LOC: EC 00:57
DX: S51.811A Laceration without foreign body of right forearm, initial encounter (principal); I10 Essential (primary) hypertension; I25.10 Atherosclerotic heart disease of native coronary artery without angina pectoris; E78.5 Hyperlipidemia, unspecified; F32.A Depression, unspecified; Z79.82 Long term (current) use of aspirin; Z79.899 Other long term (current) drug therapy; Z88.8 Allergy status to other drugs, medicaments and biological substances; Z95.5 Presence of coronary angioplasty implant and graft; Z87.891 Personal history of nicotine dependence; W18.30XA Fall on same level, unspecified, initial encounter; Y93.01 Activity, walking, marching and hiking
CPT/HCPCS: 99282; 12001; J2001

== ENCOUNTER 2023-05-23 12:42 | Inpatient (IN) | payer MEDICARE ==
--- NOTE | 2023-05-23 13:42 | ED ---
URI HPI - General Source: patient, RN notes reviewed Mode of arrival: ambulatory Limitations: no limitations <Madhav Echeverria - Last Filed: 05/23/23 13:40> <Tutu Perez - Last Filed: 05/23/23 17:45> - General Chief Complaint: Upper Respiratory Infection Stated Complaint: AZUL,Constipation Time Seen by Provider: 05/23/23 13:41 - History of Present Illness Initial Comments: 78-year-old male presents emergency Department with chief complaint of cough and cold like symptoms. Patient has been sick for last 4 days was sent over by urgent care he tested +12 days ago for COVID-19. Patient states he continues to have nausea vomiting congestion dehydration-type symptoms. (Madhav Echeverria) This is a 78-year-old male who presents emergency Department stating that he was diagnosed with COVID over 12 days ago. Patient states since then he continues to have a cough intermittent chills. Patient states he also has been short of breath over that time period. Patient states he has not been able to drink much or eat much because he has had no appetite. Patient also complains he said no bowel movement. Patient also complains that he feels like he is in a fog and not thinking straight. Patient states his symptoms continued to worsen and he is starting to become unable to take care of himself so he came to the emergency department. (Tutu Perez) - Related Data Home Medications Medication Instructions Recorded Confirmed Aspirin EC [Ecotrin Low Dose] 81 mg PO DAILY 02/15/18 05/23/23 Sertraline [Zoloft] 50 mg PO DAILY 02/15/18 05/23/23 Tamsulosin HCl [Flomax] 0.4 mg PO DAILY 02/15/18 05/23/23 Rosuvastatin [Crestor] 10 mg PO DAILY 04/08/20 05/23/23 amLODIPine BESYLATE 10 mg PO DAILY 04/08/20 05/23/23 [address]Azine [Sulfasalazine Dr] 1,000 mg PO BID 08/20/20 05/23/23 Ascorbic Acid [Vitamin C] 500 mg PO DAILY 05/23/23 05/23/23 Cholecalciferol [Vitamin D3 (25 25 mcg PO DAILY 05/23/23 05/23/23 Mcg = 1000 Iu)] Cyanocobalamin (Vitamin B-12) 1,000 mcg PO DAILY 05/23/23 05/23/23 [Vitamin B-12] Losartan Potassium 100 mg PO DAILY 05/23/23 05/23/23 carvediloL [Coreg] 6.25 mg PO BID 05/23/23 05/23/23 traZODone HCL [Desyrel] 100 mg PO HS 05/23/23 05/23/23 Allergies Allergy/AdvReac Type Severity Reaction Status Date / Time lisinopril Allergy Anaphylaxis Verified 05/23/23 17:33 Review of Systems ROS Other: All systems not noted in ROS Statement are negative. <Madhav Echeverria - Last Filed: 05/23/23 13:40> ROS Other: All systems not noted in ROS Statement are negative. <Tutu Perez - Last Filed: 05/23/23 17:45> ROS Statement: Those systems with pertinent positive or pertinent negative responses have been documented in the HPI. Past Medical History Past Medical History: Coronary Artery Disease (CAD), Hyperlipidemia, Hypertension, Prostate Disorder, Sleep Apnea/CPAP/BIPAP Additional Past Medical History / Comment(s): bruising easily, no cpap used, colitis, diverticulitis, tung carotid blockage, HAS 2 HEART STENTS IN, HAS A CYST ON KIDNEY THEY R WATCHING, "bulge" in his chest Dr Salazar is watching. cant remember the name History of Any Multi-Drug Resistant Organisms: None Reported Past Surgical History: Ear Surgery, Heart Catheterization With Stent, Orthopedic Surgery Additional Past Surgical History / Comment(s): 2 cardiac stents, ORIF rt wrist, skin graft left eardrum, surgery for deviated septum, rt cataract, surgery to remove a growth on scrotum, left carotid endartectomy Past Anesthesia/Blood Transfusion Reactions: No Reported Reaction Additional Past Anesthesia/Blood Transfusion Reaction / Comment(s): SANTIAGO FIELDS-NO BLOOD TRANSFUSIONS Date of Last Stent Placement:: 01/31/2017 Past Psychological History: Depression Smoking Status: Former smoker Past Alcohol Use History: None Reported Past Drug Use History: None Reported - Past Family History Sister(s) Family Medical History: Cancer Brother(s) Family Medical History: Cancer <Madhav Echeverria - Last Filed: 05/23/23 13:40> General Exam Limitations: no limitations <Madhav Echeverria - Last Filed: 05/23/23 13:40> <Tutu Perez - Last Filed: 05/23/23 17:45> - General Exam Comments Initial Comments: Visual Physical Exam Vital signs reviewed General: Well-appearing, nontoxic, no acute distress. Head: Normocephalic, atraumatic Eyes: PERRLA, EOMI ENT: Airway patent Chest: Nonlabored breathing Skin: No visual rash, normal skin tone Neuro: Alert and oriented 3 Musculoskeletal: No gross abnormalities (Madhav Echeverria) GENERAL: Patient is well-developed and well-nourished. Patient is nontoxic and well- hydrated and is in mild distress ENT: Neck is soft and supple. No significant lymphadenopathy is noted. Oropharynx is clear. Moist mucous membranes. Neck has full range of motion without eliciting any pain. EYES: The sclera were anicteric and conjunctiva were pink and moist. Extraocular movements were intact and pupils were equal round and reactive to light. Eyelids were unremarkable. PULMONARY: Unlabored respirations. Good breath sounds bilaterally. Patient has crackles in the right base CARDIOVASCULAR: There is a regular rate and rhythm without any murmurs gallops or rubs. ABDOMEN: Soft and nontender with normal bowel sounds. SKIN: Skin is clear with no lesions or rashes and otherwise unremarkable. NEUROLOGIC: Patient is alert and oriented x3. Cranial nerves II through XII are grossly intact. Motor and sensory are also intact. Normal speech, volume and content. Symmetrical smile. MUSCULOSKELETAL: Normal extremities with adequate strength and full range of motion. LYMPHATICS: No significant lymphadenopathy is noted PSYCHIATRIC: Normal psychiatric evaluation. (Tutu Perez) Course Vital Signs 05/23/23 05/23/23 13:06 16:34 Temperature 99.6 F Pulse Rate 87 67 Respiratory 18 20 Rate Blood Pressure 121/70 131/63 O2 Sat by Pulse 92 L 91 L Oximetry Medical Decision Making <Madhav Echeverria - Last Filed: 05/23/23 13:40> - Lab Data Result diagrams: 05/23/23 14:31 05/23/23 14:31 <Tutu Perez - Last Filed: 05/23/23 17:45> - Medical Decision Making I completed the quick note portion of this chart signed Madhav Echeverria PA-C (Madhav Echeverria) Was pt. sent in by a medical professional or institution (DORIS Rice, SENIOR CYTOTECHNOLOGIST, urgent care, hospital, or assisted...) When possible be specific @ -No Did you speak to anyone other than the patient for history (EMS, parent, family, police, friend...)? What history was obtained from this source @ -No Did you review nursing and triage notes (agree or disagree)? Why? @ -I reviewed and agree with nursing and triage notes Were old charts reviewed (outside hosp., previous admission, EMS record, old EKG, old radiological studies, urgent care reports/EKG's, assisted records)? Report findings @ -I reviewed prior charts and prior lab work Differential Diagnosis (chest pain, altered mental status, abdominal pain women, abdominal pain men, vaginal bleeding, weakness, fever, dyspnea, syncope, headache, dizziness, GI bleed, back pain, seizure, CVA, palpatations, mental health, musculoskeletal)? @ -Differential Weakness: Hypoglycemia, shock, sepsis, hyponatremia, anemia, infection, NC, ETOH, adverse medicine reaction, overdose, stroke, this is not meant to be an all-inclusive list. EKG interpreted by me (3pts min.). @ -As above X-rays interpreted by me (1pt min.). @ -Bilateral infiltrates consistent with cold with CT interpreted by me (1pt min.). @ -None done U/S interpreted by me (1pt. min.). @ -None done What testing was considered but not performed or refused? (CT, X-rays, U/S, labs)? Why? @ -None What meds were considered but not given or refused? Why? @ -None Did you discuss the management of the patient with other professionals (professionals i.e. DORIS Rice, SENIOR CYTOTECHNOLOGIST, lab, RT, psych nurse, social sciences lecturer, casino worker, teacher, special technical operations officer, insurance case manager)? Give summary @ -I spoke with sheet he agreed to admit the patient admitted the patient wrote admitting orders Was smoking cessation discussed for >3mins.? @ -No Was critical care preformed (if so, how long)? @ -No Were there social determinants of health that impacted care today? How? (Homelessness, low income, unemployed, alcoholism, drug addiction, transportation, low edu. Level, literacy, decrease access to med. care, correction, rehab)? @ -No Was there de-escalation of care discussed even if they declined (Discuss DNR or withdrawal of care, Hospice)? DNR status @ -No What co-morbidities impacted this encounter? (DM, HTN, Smoking, COPD, CAD, C ancer, CVA, ARF, Chemo, Hep., AIDS, mental health diagnosis, sleep apnea, morbid obesity)? @ -None Was patient admitted / discharged? Hospital course, mention meds given and route, prescriptions, significant lab abnormalities, going to OR and other pertinent info. @ -Patient's lab work came back without any significant abnormalities. Patient was COVID Positive. Patient's x-ray shows no infiltrates. When I went over the results with the patient he felt uncomfortable going home so spoke with Dr. oviedo he agreed to admit the patient I admitted the patient wrote admitting orders Undiagnosed new problem with uncertain prognosis? @ -No Drug Therapy requiring intensive monitoring for toxicity (Heparin, Nitro, Insulin, Cardizem)? @ -No Were any procedures done? @ -No Diagnosis/symptom? @ -COVID Acute, or Chronic, or Acute on Chronic? @ -Acute on chronic Uncomplicated (without systemic symptoms) or Complicated (systemic symptoms)? @ -Complicated Side effects of treatment? @ -No Exacerbation, Progression, or Severe Exacerbation? @ -No Poses a threat to life or bodily function? How? (Chest pain, USA, NC, pneumonia, PE, COPD, DKA, ARF, appy, cholecystitis, CVA, Diverticulitis, Homicidal, Suicidal, threat to staff... and all critical care pts) @ -No (Tutu Perez) - Lab Data Lab Results 05/23/23 05/23/23 05/23/23 Range/Units 14:31 14:31 14:31 WBC 5.7 (3.8-10.6) k/uL RBC 4.85 (4.30-5.90) m/uL Hgb 13.7 (13.0-17.5) gm/dL Hct 40.8 (39.0-53.0) % MCV 84.2 (80.0-100.0) fL MCH 28.3 (25.0-35.0) pg MCHC 33.6 (31.0-37.0) g/dL RDW 14.8 (11.5-15.5) % Plt Count 159 (150-450) k/uL MPV 7.9 Neutrophils % 84 % Lymphocytes % 9 % Monocytes % 6 % Eosinophils % 0 % Basophils % 0 % Neutrophils # 4.8 (1.3-7.7) k/uL Lymphocytes # 0.5 L (1.0-4.8) k/uL Monocytes # 0.3 (0-1.0) k/uL Eosinophils # 0.0 (0-0.7) k/uL Basophils # 0.0 (0-0.2) k/uL Sodium 137 (137-145) mmol/L Potassium 4.0 (3.5-5.1) mmol/L Chloride 102 (98-107) mmol/L Carbon Dioxide 22 (22-30) mmol/L Anion Gap 13 mmol/L BUN 29 H (9-20) mg/dL Creatinine 1.11 (0.66-1.25) mg/dL Est GFR (CKD-EPI)AfAm 74 (>60 ml/min/1.73 sqM) Est GFR (CKD-EPI)NonAf 64 (>60 ml/min/1.73 sqM) Glucose 101 H (74-99) mg/dL Calcium 8.5 (8.4-10.2) mg/dL Total Bilirubin 0.8 (0.2-1.3) mg/dL AST 66 H (17-59) U/L ALT 48 (4-49) U/L Alkaline Phosphatase 65 (38-126) U/L Total Protein 6.6 (6.3-8.2) g/dL Albumin 3.6 (3.5-5.0) g/dL Influenza Type A (PCR) Not Detected (Not Detectd) Influenza Type B (PCR) Not Detected (Not Detectd) RSV (PCR) Not Detected (Not Detectd) SARS-CoV-2 (PCR) Detected A (Not Detectd) Disposition <Madhav Echeverria - Last Filed: 05/23/23 13:40> Time of Disposition: 17:45 <Tutu Perez - Last Filed: 05/23/23 17:45> Clinical Impression: COVID-19, Generalized weakness Disposition: ADMITTED IP TO THIS HOSP Referrals: Kahlil Bliss DO [Primary Care Provider] - 1-2 days
[2023-05-23 14:41] LABS: Basophils % (A) 0 %; Eosinophils % (A) 0 %; HCT 40.8 % (39.0-53.0); HGB 13.7 gm/dL (13.0-17.5); Lymphocytes # (A) 0.5 k/uL (1.0-4.8); Lymphocytes % (A) 9 %; MCH 28.3 pg (25.0-35.0); MCHC 33.6 g/dL (31.0-37.0); MCV 84.2 fL (80.0-100.0); Mean Platelet Volume 7.9; Monocytes # (A) 0.3 k/uL (0-1.0); Monocytes % (A) 6 %; Neutrophils # (A) 4.8 k/uL (1.3-7.7); Neutrophils % (A) 84 %; Platelet Count 159 k/uL (150-450); RBC 4.85 m/uL (4.30-5.90); RDW 14.8 % (11.5-15.5); WBC 5.7 k/uL (3.8-10.6)
--- NOTE | 2023-05-23 14:46 | XR ---
EXAMINATION TYPE: XR chest 2V DATE OF EXAM: 05/23/2023 COMPARISON: 10/13/2016 HISTORY: 78 year-old male shortness of breath TECHNIQUE: PA and lateral views FINDINGS: Heart normal size. Tortuous/ectatic thoracic aorta. Bilateral interstitial infiltrates are present es pecially in the mid and lower lungs. IMPRESSION: Bilateral patchy COVID interstitial infiltrates.
[2023-05-23 15:00] LABS: ALT 48 U/L (4-49); AST 66 U/L (17-59); African American GFR (CKD) 74 (>60 ml/min/1.73 sqM); Albumin 3.6 g/dL (3.5-5.0); Alkaline Phosphatase 65 U/L (38-126); Anion Gap 13 mmol/L; Blood Urea Nitrogen 29 mg/dL (9-20); Calcium 8.5 mg/dL (8.4-10.2); Carbon Dioxide 22 mmol/L (22-30); Chloride 102 mmol/L (98-107); Glucose 101 mg/dL (74-99); Non-African American GFR(CKD) 64 (>60 ml/min/1.73 sqM); Sodium 137 mmol/L (137-145); Total Bilirubin 0.8 mg/dL (0.2-1.3); Total Protein 6.6 g/dL (6.3-8.2)
[2023-05-23] MEDS ORDERED: SODIUM CHLORIDE 0.9% 1,000 ML IV ONE ×2 (15:40→17:45)
--- NOTE | 2023-05-23 16:33 | XR ---
EXAMINATION TYPE: XR KUB DATE OF EXAM: 05/23/2023 Comparison: 08/25/2020 Clinical History: 78-year-old male mid abdominal pain, Constipated Findings: Lung bases are clear. No evidence for free intraperitoneal air. No dilated small bowel or differential air-fluid levels are seen. A few scattered small air-fluid lev els throughout small bowel loops. Air is present throughout the colon extending distally to the rectum. No significant stool burden. Left-sided pelvic phlebolith. Impression: Nonspecific, overall nonobstructive bowel gas pattern. Scattered small air-fluid levels could represe nt a mild generalized ileus or enteritis. No significant stool burden.
[2023-05-23] MEDS ORDERED: IOPAMIDOL CONTRAST (ORAL USE) VIAL PO PRN (21:18)
[2023-05-23] MEDS ORDERED: IPRATROPIUM-ALBUTEROL 3 ML NEB INHALATION PRN (21:23)
[2023-05-23] MEDS ORDERED: IPRATROPIUM-ALBUTEROL 3 ML NEB INHALATION STA (21:23)
--- NOTE | 2023-05-23 21:32 | P.HPIM ---
History of Present Illness This is a pleasant 78 years old male with multiple medical problems. Presents because of respiratory symptoms and not feeling well. He went to urgent care where he saw Dr. Estevez and he referred him to emergency room. Patient states for the last 12 days he's been feeling weaker every day and hard for him to breathe associated with cough and clear phlegm but no overt chest pain Also he is complaining of from constipation for few days abdominal distention and epigastric pain and tenderness. His symptoms are associated with sore throat for the last 12 days as well. No specific urinary symptoms, no headache dizziness weakness or numbness. He denies smoking alcohol or illicit drugs. Vital signs are stable and he is saturating well on room air CBC is unremarkable except for mild lymphopenia BMP is unremarkable, LFTs are unremarkable. covid test is positive , while rest of viral tests were negative To BE showing nonspecific gas pattern but suspicious for mild generalized ileus or enteritis. Chest x-ray showing bilateral patchy infiltrates per radiologist however when I reviewed the chest x-ray by myself that looks to me more prominent interstitial markings consistent more with a bronchitis rather than pneumonia Review of Systems Review of systems CONSTITUTIONAL: No fever, no malaise, no fatigue. HEENT: No recent visual problems or hearing problems. Denied any sore throat. CARDIOVASCULAR: No orthopnea, PND, no palpitations, no syncope. PULMONARY: Chest wall tenderness, no hemoptysis. GASTROINTESTINAL: No diarrhea, no nausea, no vomiting, no abdominal pain. Normoactive bowel sounds. NEUROLOGICAL: No headaches, no weakness, no numbness. HEMATOLOGICAL: Denies any bleeding or petechiae. GENITOURINARY: Denies any burning micturition, frequency, or urgency. MUSCULOSKELETAL/RHEUMATOLOGICAL: Denies any joint pain, swelling, or any muscle pain. ENDOCRINE: Denies any polyuria or polydipsia. Past Medical History Past Medical History: Coronary Artery Disease (CAD), Hyperlipidemia, Hypertension, Prostate Disorder, Sleep Apnea/CPAP/BIPAP Additional Past Medical History / Comment(s): bruising easily, no cpap used, colitis, diverticulitis, tung carotid blockage, HAS 2 HEART STENTS IN, HAS A CYST ON KIDNEY THEY R WATCHING, "bulge" in his chest Dr Salazar is watching. cant remember the name History of Any Multi-Drug Resistant Organisms: None Reported Past Surgical History: Ear Surgery, Heart Catheterization With Stent, Orthopedic Surgery Additional Past Surgical History / Comment(s): 2 cardiac stents, ORIF rt wrist, skin graft left eardrum, surgery for deviated septum, rt cataract, surgery to remove a growth on scrotum, left carotid endartectomy Past Anesthesia/Blood Transfusion Reactions: No Reported Reaction Additional Past Anesthesia/Blood Transfusion Reaction / Comment(s): JEHOVAHS WITNESS-NO BLOOD TRANSFUSIONS Date of Last Stent Placement:: 01/31/2017 Past Psychological History: Depression Smoking Status: Former smoker Past Alcohol Use History: None Reported Past Drug Use History: None Reported - Past Family History Sister(s) Family Medical History: Cancer Brother(s) Family Medical History: Cancer Medications and Allergies Home Medications Medication Instructions Recorded Confirmed Type Aspirin EC [Ecotrin Low Dose] 81 mg PO DAILY 02/15/18 05/23/23 History Sertraline [Zoloft] 50 mg PO DAILY 02/15/18 05/23/23 History Tamsulosin HCl [Flomax] 0.4 mg PO DAILY 02/15/18 05/23/23 History Rosuvastatin [Crestor] 10 mg PO DAILY 04/08/20 05/23/23 History amLODIPine BESYLATE 10 mg PO DAILY 04/08/20 05/23/23 History sulfaSALAzine [Sulfasalazine Dr] 1,000 mg PO BID 08/20/20 05/23/23 History Ascorbic Acid [Vitamin C] 500 mg PO DAILY 05/23/23 05/23/23 History Cholecalciferol [Vitamin D3 (25 25 mcg PO DAILY 05/23/23 05/23/23 History Mcg = 1000 Iu)] Cyanocobalamin (Vitamin B-12) 1,000 mcg PO DAILY 05/23/23 05/23/23 History [Vitamin B-12] Losartan Potassium 100 mg PO DAILY 05/23/23 05/23/23 History carvediloL [Coreg] 6.25 mg PO BID 05/23/23 05/23/23 History traZODone HCL [Desyrel] 100 mg PO HS 05/23/23 05/23/23 History Allergies Allergy/AdvReac Type Severity Reaction Status Date / Time lisinopril Allergy Anaphylaxis Verified 05/23/23 17:33 Physical Exam Vitals: Vital Signs Temp Pulse Resp BP Pulse Ox 05/23/23 18:51 74 18 134/73 96 05/23/23 16:34 67 20 131/63 91 L 05/23/23 13:06 99.6 F 87 18 121/70 92 L Intake and Output 05/23/23 05/23/23 05/23/23 06:59 14:59 22:59 Other: Weight 111.13 kg -GENERAL: The patient is alert and oriented x3, not in any acute respiratory dis tress, obese. Generally weak HEENT: Pupils are round and equally reacting to light. EOMI. No scleral icterus. No conjunctival pallor. Normocephalic, atraumatic. No pharyngeal erythema. No thyromegaly. CARDIOVASCULAR: S1 and S2 present. No murmurs, rubs, or gallops. PULMONARY: Chest is clear to auscultation, no wheezing , no crackles. -ABDOMEN: Soft, mild epigastric tenderness without guarding or rebound tenderness,, distended, normoactive bowel sounds. No palpable organomegaly. MUSCULOSKELETAL: No joint swelling or deformity. EXTREMITIES: No cyanosis, clubbing, or pedal edema. NEUROLOGICAL: Gross neurological examination did not reveal any focal deficits. SKIN: No rashes. no petechiae. Results CBC & Chem 7: 05/23/23 14:31 05/23/23 14:31 Labs: Abnormal Lab Results - Last 24 Hours (Table) 05/23/23 05/23/23 05/23/23 Range/Units 14:31 14:31 14:31 Lymphocytes # 0.5 L (1.0-4.8) k/uL BUN 29 H (9-20) mg/dL Glucose 101 H (74-99) mg/dL AST 66 H (17-59) U/L SARS-CoV-2 (PCR) Detected A (Not Detectd) Assessment and Plan Assessment: Acute tracheobronchitis secondary to covid infection , bacterial superinfection cannot be entirely excluded Generalized abdominal ileus versus enteritis associated with epigastric pain and tenderness Generalized weakness Obesity. Plan: Start gentle hydration with normal saline 75 mL/h Give and held steroids and a bronchodilator Vitamin C, D and zinc Zithromax short oral course Infectious disease consult Border CT of the abdomen and pelvis with IV contrast Give liquid diet Labs and medication were reviewed.. Continue same treatment. Continue with symptomatic treatment. Resume home medication. Monitor labs and vitals. DVT and GI prophylaxis. Further recommendations as per clinical course of the patient DVT prophylaxis: Subcutaneous Lovenox GI Prophylaxis: Pepcid PT/OT: Pending Prognosis is guarded
[2023-05-23] MEDS: CHOLECALCIFEROL 25 MCG (1000 IU) TABLET PO SCH (21:41)
[2023-05-23] MEDS: FAMOTIDINE 20 MG/2 ML VIAL IV SCH (21:41)
[2023-05-23] MEDS ORDERED: ALBUTEROL HFA INHALER INHALATION STA (22:38)
[2023-05-23] MEDS ORDERED: ALBUTEROL HFA INHALER INHALATION PRN (23:16)
--- NOTE | 2023-05-23 23:55 | CT ---
EXAM: CT Abdomen and Pelvis With Intravenous Contrast CLINICAL HISTORY: ITS.REASON CT Reason: possible ileus TECHNIQUE: Axial computed tomography images of the abdomen and pelvis with intravenous contrast. CTDI is 34.16 mGy and DLP is 1780.5 mGy-cm. This CT exam was performed using one or more of the following dose reduction techniques: automated exposure control, adjustment of the mA and/or kV according to patient size, and/or use of iterative reconstruction technique. COMPARISON: No relevant prior studies available. FINDINGS: Lung bases: Unremarkable. No mass. No consolidation. ABDOMEN: Liver: Hepatic steatosis. Gallbladder and bile ducts: Unremarkable. No calcified stones. No ductal dilation. Pancreas: Atrophy of the pancreas. No ductal dilation. Spleen: Unremarkable. No splenomegaly. Adrenals: Unremarkable. No mass. Kidneys and ureters: Renal cysts measuring up to 4 cm in the RIGHT kidney. No hydronephrosis or delayed nephrogram. Stomach and bowel: Diverticulosis, without acute diverticulitis. No small bowel obstruction. No free intraperitoneal air. PELVIS: Appendix: No findings to suggest acute appendicitis. Bladder: Unremarkable. No mass. Reproductive: Unremarkable as visualized. ABDOMEN and PELVIS: Intraperitoneal space: Unremarkable. No free air. No significant fluid collection. Bones/joints: Degenerative changes of the spine. No acute fracture. No dislocation. Soft tissues: Fluid collection overlying the LEFT hip, measures approximately 10.0 x 6.0 x 12.7 cm. Correlate with soft tissue hematoma. Vasculature: Infrarenal abdominal aortic aneurysm, measures 5 cm anteroposterior. Atherosclerotic changes of the aorta. Lymph nodes: Unremarkable. No enlarged lymph nodes. IMPRESSION: 1. No hydronephrosis or delayed nephrogram. 2. Fluid collection overlying the LEFT hip, measures approximately 10.0 x 6.0 x 12.7 cm. Correlate with soft tissue hematoma. 3. Infrarenal abdominal aortic aneurysm, measures 5 cm anteroposterior. 4. Hepatic steatosis. 5. Diverticulosis, without acute diverticulitis. No small bowel obstruction. No free intraperitoneal air.
[2023-05-24] MEDS: SYMBICORT 160-4.5 MCG INHALER INHALATION SCH ×2 (08:52→21:06)
[2023-05-24] MEDS ORDERED: ENOXAPARIN 40 MG/0.4 ML SYRINGE SQ SCH (09:00)
--- NOTE | 2023-05-24 09:30 | XR ---
EXAMINATION TYPE: XR Hip Limited LT DATE OF EXAM: 05/24/2023 7:24 AM CLINICAL INDICATION:Male, 78 years old with history of hematoma; [facility] COMPARISON: CT 05/23/2023. TECHNIQUE: XR Hip Limited LT; hip was examined in the frontal projections FINDINGS: No evidence for acute process, joint dislocation or significant soft tissue swelling. Osteo phyte formation of the superior acetabulum of the hip. Oral contrast seen within the colon and rectum . Masslike opacity could represent patient's history of hematoma measuring 15.0 x 6.8 cm. IMPRESSION: 1. No evidence for acute process. 2. Mild to moderate hip osteoarthrosis. 3. Left lateral thigh masslike opacity likely representing hematoma measuring up to 15.0 x 6.8 centim eters when correlating with CT.
[2023-05-24] MEDS: SODIUM CHLORIDE 0.9% 1,000 ML IV SCH ×2 (10:19→20:52)
[2023-05-24] MEDS: CHOLECALCIFEROL 25 MCG (1000 IU) TABLET PO SCH (10:25)
[2023-05-24] MEDS: FAMOTIDINE 20 MG/2 ML VIAL IV SCH ×2 (10:25→20:52)
[2023-05-24] MEDS: ASCORBIC ACID 500 MG TAB PO SCH (10:25)
[2023-05-24] MEDS: ZINC SULFATE 220 MG CAP PO SCH (10:25)
[2023-05-24 11:01] LABS: Basophils # (A) 0.01 X 10*3/uL (0.00-0.10); Basophils % (A) 0.2 %; Eosinophils # (A) 0.07 X 10*3/uL (0.04-0.35); Eosinophils % (A) 1.3 %; HCT 37.5 % (39.6-50.0); HGB 12.1 g/dL (13.0-17.0); Lymphocytes # (A) 0.59 X 10*3/uL (0.90-5.00); MCH 27.2 pg (27.0-32.0); MCHC 32.3 g/dL (32.0-37.0); MCV 84.3 FL (80.0-97.0); Mean Platelet Volume 10.6 FL (9.5-12.2); Monocytes # (A) 0.64 X 10*3/uL (0.20-1.00); Monocytes % (A) 11.9 %; NRBC Per 100 WBC 0 X 10*3/uL (0.00-0.01); Neutrophils # (A) 4.04 X 10*3/uL (1.80-7.70); Neutrophils % (A) 75.4 %; Platelet Count 144 X 10*3/uL (140-440); RBC 4.45 X 10*6/uL (4.40-5.60); RDW 15.5 % (11.5-14.5); WBC 5.36 X 10*3/uL (4.50-10.00)
[2023-05-24 11:15] LABS: BUN/Creat Ratio 22.56 Ratio (12.00-20.00); Blood Urea Nitrogen 20.3 mg/dL (9.0-27.0); Calcium 8.2 mg/dL (8.7-10.3); Carbon Dioxide 22.7 mmol/L (21.6-31.8); Chloride 103 mmol/L (96-109); Glucose 88 mg/dL (70-110); Potassium 4.2 mmol/L (3.5-5.5); Sodium 139 mmol/L (135-145)
[2023-05-24] MEDS: SERTRALINE 50 MG TAB PO SCH (11:35)
[2023-05-24] MEDS: carvediloL 6.25 MG TAB PO SCH ×2 (11:35→17:59)
[2023-05-24] MEDS: amLODIPine 10 MG TAB PO SCH (11:35)
[2023-05-24] MEDS: TAMSULOSIN 0.4 MG CAP.ER.24H PO SCH (11:36)
--- NOTE | 2023-05-24 11:42 | P.GSCN ---
History of Present Illness Consult date: 05/24/23 Reason for Consult: Abdominal aortic aneurysm, left hip hematoma Requesting physician: Dick E Sheet History of present illness: This is a pleasant 78-year-old male who presented to the emergency department for generalized weakness, malaise, cough and shortness of breath who was recently diagnosed with COVID-19 action around 12-13 days ago. Patient states he has just continued to feel rundown and unable to eat or drink much. He is known to Dr. Salazar from vascular surgery for history of abdominal aortic aneurysm as well as history of left internal carotid artery stenosis status post carotid endarterectomy done 08/24/2020. Patient was proceeded Dr. Salazar yesterday in the office for follow-up for his AAA. Patient denies any abdominal pain, no gripping sensation or pain radiating to his back. Denies any chest pain. States he has some shortness of breath related to his cough. Patient has been having chills he was afebrile on admission. Patient is still testing positive for SARS-coV-2 PCR. Patient's hemoglobin on admission 13.7 with repeated 8 at 12.1. Patient states he had fallen 2 months ago and hit his left hip up against the wall. He states it was quite bruised and swollen. He has not followed with anyone regarding the injury. States he still has some swelling and discomfort there. He did have a CT of the abdomen and pelvis while in the emergency department that reported an infrarenal abdominal aortic aneurysm measuring 5 cm. Also reports left hip fluid collection 10 x 6 x 12.0 cm soft tissue hematoma. Vascular surgery was consulted for abdominal aortic aneurysm and hematoma. Review of Systems A 14 point review systems was completed all pertinent positives and negatives as stated in the HPI. Past Medical History Past Medical History: Coronary Artery Disease (CAD), Hyperlipidemia, Hypertension, Prostate Disorder, Sleep Apnea/CPAP/BIPAP Additional Past Medical History / Comment(s): bruising easily, no cpap used, colitis, diverticulitis, tung carotid blockage, HAS 2 HEART STENTS IN, HAS A CYST ON KIDNEY THEY R WATCHING, "bulge" in his chest Dr Salazar is watching. cant remember the name History of Any Multi-Drug Resistant Organisms: None Reported Past Surgical History: Ear Surgery, Heart Catheterization With Stent, Orthopedic Surgery Additional Past Surgical History / Comment(s): 2 cardiac stents, ORIF rt wrist, skin graft left eardrum, surgery for deviated septum, rt cataract, surgery to remove a growth on scrotum, left carotid endartectomy Past Anesthesia/Blood Transfusion Reactions: No Reported Reaction Additional Past Anesthesia/Blood Transfusion Reaction / Comm: JEHOVAHS WITNESS- NO BLOOD TRANSFUSIONS Date of Last Stent Placement:: 01/31/2017 Past Psychological History: Depression Smoking Status: Former smoker Past Alcohol Use History: None Reported Past Drug Use History: None Reported - Past Family History Sister(s) Family Medical History: Cancer Brother(s) Family Medical History: Cancer Medications and Allergies Home Medications Medication Instructions Recorded Confirmed Type Aspirin EC [Ecotrin Low Dose] 81 mg PO DAILY 02/15/18 05/23/23 History Sertraline [Zoloft] 50 mg PO DAILY 02/15/18 05/23/23 History Tamsulosin HCl [Flomax] 0.4 mg PO DAILY 02/15/18 05/23/23 History Rosuvastatin [Crestor] 10 mg PO DAILY 04/08/20 05/23/23 History amLODIPine BESYLATE 10 mg PO DAILY 04/08/20 05/23/23 History sulfaSALAzine [Sulfasalazine Dr] 1,000 mg PO BID 08/20/20 05/23/23 History Ascorbic Acid [Vitamin C] 500 mg PO DAILY 05/23/23 05/23/23 History Cholecalciferol [Vitamin D3 (25 25 mcg PO DAILY 05/23/23 05/23/23 History Mcg = 1000 Iu)] Cyanocobalamin (Vitamin B-12) 1,000 mcg PO DAILY 05/23/23 05/23/23 History [Vitamin B-12] Losartan Potassium 100 mg PO DAILY 05/23/23 05/23/23 History carvediloL [Coreg] 6.25 mg PO BID 05/23/23 05/23/23 History traZODone HCL [Desyrel] 100 mg PO HS 05/23/23 05/23/23 History Allergies Allergy/AdvReac Type Severity Reaction Status Date / Time lisinopril Allergy Anaphylaxis Verified 05/23/23 17:33 Surgical - Exam Vital Signs Temp Pulse Resp BP Pulse Ox 99.6 F 87 18 121/70 92 L 05/23/23 13:06 05/23/23 13:06 05/23/23 13:06 05/23/23 13:06 05/23/23 13:06 General appearance: The patient is alert, oriented, appears in no acute distress. HET: Head is normocephalic and atraumatic. Neck: Supple. Heart: Regular. Lungs: Equal expansion, normal respiratory effort. Abdomen: Soft, nontender, nondistended. Extremities: Normal skin color and turgor. Palpable bilateral dorsalis pedis pulses. Neurological: No focal deficits. Results - Labs 05/24/23 06:42 05/24/23 06:42 Abnormal Lab Results - Last 24 Hours (Table) 05/23/23 05/23/23 05/23/23 Range/Units 14:31 14:31 14:31 Hgb (13.0-17.0) g/dL Hct (39.6-50.0) % RDW (11.5-14.5) % Lymphocytes # 0.5 L (1.0-4.8) k/uL Anion Gap (4.00-12.00) mmol/L BUN 29 H (9-20) mg/dL BUN/Creatinine Ratio (12.00-20.00) Ratio Glucose 101 H (74-99) mg/dL Calcium (8.7-10.3) mg/dL AST 66 H (17-59) U/L C-Reactive Protein (0.00-0.80) mg/dL SARS-CoV-2 (PCR) Detected A (Not Detectd) 05/24/23 05/24/23 Range/Units 06:42 06:42 Hgb 12.1 L (13.0-17.0) g/dL Hct 37.5 L (39.6-50.0) % RDW 15.5 H (11.5-14.5) % Lymphocytes # 0.59 L (1.0-4.8) k/uL Anion Gap 13.30 H (4.00-12.00) mmol/L BUN (9-20) mg/dL BUN/Creatinine Ratio 22.56 H (12.00-20.00) Ratio Glucose (74-99) mg/dL Calcium 8.2 L (8.7-10.3) mg/dL AST (17-59) U/L C-Reactive Protein 16.10 H (0.00-0.80) mg/dL SARS-CoV-2 (PCR) (Not Detectd) Diabetes panel 05/23/23 05/24/23 Range/Units 14:31 06:42 Sodium 137 139 (137-145) mmol/L Potassium 4.0 4.2 (3.5-5.1) mmol/L Chloride 102 103 (98-107) mmol/L Carbon Dioxide 22 22.7 (22-30) mmol/L BUN 29 H 20.3 (9-20) mg/dL Creatinine 1.11 0.9 (0.66-1.25) mg/dL Glucose 101 H 88 (74-99) mg/dL Calcium 8.5 8.2 L (8.4-10.2) mg/dL AST 66 H (17-59) U/L ALT 48 (4-49) U/L Alkaline Phosphatase 65 (38-126) U/L Total Protein 6.6 (6.3-8.2) g/dL Albumin 3.6 (3.5-5.0) g/dL Calcium panel 05/23/23 05/24/23 Range/Units 14:31 06:42 Calcium 8.5 8.2 L (8.4-10.2) mg/dL Albumin 3.6 (3.5-5.0) g/dL Pituitary panel 05/23/23 05/24/23 Range/Units 14:31 06:42 Sodium 137 139 (137-145) mmol/L Potassium 4.0 4.2 (3.5-5.1) mmol/L Chloride 102 103 (98-107) mmol/L Carbon Dioxide 22 22.7 (22-30) mmol/L BUN 29 H 20.3 (9-20) mg/dL Creatinine 1.11 0.9 (0.66-1.25) mg/dL Glucose 101 H 88 (74-99) mg/dL Calcium 8.5 8.2 L (8.4-10.2) mg/dL Adrenal panel 05/23/23 05/24/23 Range/Units 14:31 06:42 Sodium 137 139 (137-145) mmol/L Potassium 4.0 4.2 (3.5-5.1) mmol/L Chloride 102 103 (98-107) mmol/L Carbon Dioxide 22 22.7 (22-30) mmol/L BUN 29 H 20.3 (9-20) mg/dL Creatinine 1.11 0.9 (0.66-1.25) mg/dL Glucose 101 H 88 (74-99) mg/dL Calcium 8.5 8.2 L (8.4-10.2) mg/dL Total Bilirubin 0.8 (0.2-1.3) mg/dL AST 66 H (17-59) U/L ALT 48 (4-49) U/L Alkaline Phosphatase 65 (38-126) U/L Total Protein 6.6 (6.3-8.2) g/dL Albumin 3.6 (3.5-5.0) g/dL - Imaging Comments: Chest x-ray reports bilateral patchy Covid interstitial infiltrates KUB x-ray reports nonspecific, overall nonobstructive bowel gas pattern. Scattered small air-fluid levels could represent a mild generalized ileus or enteritis. No significant stool burden. Left Hip x-ray reports no evidence for acute process. Mild to moderate hip osteoarthrosis. Left lateral thigh mass like opacity likely representing hematoma measuring up to 15.0 x 6.8 cm when correlating with CT CT abdomen and pelvis with contrast reports no hydronephrosis or delayed nep hrogram. Fluid collection overlying the left hip, measuring approximately 10.0 x 6.0 x 12.7 cm. Correlate with soft tissue hematoma. Infrarenal abdominal aortic aneurysm measures 5 cm anteroposterior. Hepatic steatosis. Diverticulosis, without acute diverticulitis no small bowel obstruction. No free intraperitoneal air. Assessment and Plan Assessment: 1. Known infrarenal abdominal aortic aneurysm being monitored by vascular surgery, Dr. Salazar 2. Left hip hematoma 3. COVID-19 infection 4. Plan: Patient to reschedule appointment with Dr. Salazar in follow-up in the outpatient setting for abdominal aortic aneurysm. Left hip hematoma from 2 months ago. Hemoglobin stable. Patient is not on any anticoagulation. No plans on surgical intervention. Continue medical management per COVID-19 infection. Thank you for this consultation, we will sign off at this time. The impression and plan of care has been dictated as directed. I performed a history and examination of this patient, discussed the same with the dictator. I agree with the dictator's note ,documented as a scribe. Any additional findings or plans will be noted.
[2023-05-24 11:46] LABS: LDH 198 U/L (120-246)
[2023-05-24] MEDS: traZODone HCL 100 MG TAB PO SCH (20:51)
[2023-05-24] MEDS: DEXAMETHASONE SOD PHOSPHATE 10 MG/ML 1 ML VIAL IV SCH (22:08)
--- NOTE | 2023-05-24 23:14 | P.CONS ---
History of Present Illness - Reason for Consult Consult date: 05/24/23 - History of Present Illness Patient is a 78-year-old male with a past medical history significant for coronary disease hypertension hyperlipidemia prostate disorder patient apparently started getting sick about 2 weeks ago and apparently the patient did tested positive for COVID-19 about 12 days ago patient symptom has been mostly sore throat runny nose denies any difficulty swallowing he also have a congested cough with occasional sputum production which is clear denies any hemoptysis or pleuritic chest pain patient's symptoms continue to get worse for the patient presented to hospital symptoms has been mostly increasing shortness of breath on minimal exertion even at rest patient denies having any chest pain he did have a congested cough with occasional clear sputum no hemoptysis patient denies having any nausea or vomiting or headaches is poor denies any abdominal pain no diarrhea with the symptoms the patient was evaluated on presentation to the hospital patient was running a low-grade fever of 99.6, the patient is afebrile since then, the patient was not tachycardic or hypotensive he was apparently hypoxic with O2 sats of 91 to 92% on room air is currently on a 2 L nasal cannula oxygen patient did have a white count of 5.7 with lymphopenia creatinine is 1.11 CRP is elevated however procalcitonin is normal he did tested positive for COVID-19 patient did have a chest x-ray bilateral patchy COVID interstitial infiltrate he did have a CT of abdominal pelvis did not mention any infiltrate or consolidation of the lung bases fluid collection overlying the left hip correlate. Did hematoma infrarenal abdominal aortic aneurysm infectious disease was consulted for further management Past Medical History Past Medical History: Coronary Artery Disease (CAD), Hyperlipidemia, Hypertension, Prostate Disorder, Sleep Apnea/CPAP/BIPAP Additional Past Medical History / Comment(s): bruising easily, no cpap used, colitis, diverticulitis, tung carotid blockage, HAS 2 HEART STENTS IN, HAS A CYST ON KIDNEY THEY R WATCHING, "bulge" in his chest Dr Salazar is watching. cant remember the name History of Any Multi-Drug Resistant Organisms: None Reported Past Surgical History: Ear Surgery, Heart Catheterization With Stent, Orthopedic Surgery Additional Past Surgical History / Comment(s): 2 cardiac stents, ORIF rt wrist, skin graft left eardrum, surgery for deviated septum, rt cataract, surgery to remove a growth on scrotum, left carotid endartectomy Past Anesthesia/Blood Transfusion Reactions: No Reported Reaction Additional Past Anesthesia/Blood Transfusion Reaction / Comm: JEHOVAHS WITNESS- NO BLOOD TRANSFUSIONS Date of Last Stent Placement:: 01/31/2017 Past Psychological History: Depression Smoking Status: Former smoker Past Alcohol Use History: None Reported Past Drug Use History: None Reported - Past Family History Sister(s) Family Medical History: Cancer Brother(s) Family Medical History: Cancer Medications and Allergies Home Medications Medication Instructions Recorded Confirmed Type Aspirin EC [Ecotrin Low Dose] 81 mg PO DAILY 02/15/18 05/23/23 History Sertraline [Zoloft] 50 mg PO DAILY 02/15/18 05/23/23 History Tamsulosin HCl [Flomax] 0.4 mg PO DAILY 02/15/18 05/23/23 History Rosuvastatin [Crestor] 10 mg PO DAILY 04/08/20 05/23/23 History amLODIPine BESYLATE 10 mg PO DAILY 04/08/20 05/23/23 History sulfaSALAzine [Sulfasalazine Dr] 1,000 mg PO BID 08/20/20 05/23/23 History Ascorbic Acid [Vitamin C] 500 mg PO DAILY 05/23/23 05/23/23 History Cholecalciferol [Vitamin D3 (25 25 mcg PO DAILY 05/23/23 05/23/23 History Mcg = 1000 Iu)] Cyanocobalamin (Vitamin B-12) 1,000 mcg PO DAILY 05/23/23 05/23/23 History [Vitamin B-12] Losartan Potassium 100 mg PO DAILY 05/23/23 05/23/23 History carvediloL [Coreg] 6.25 mg PO BID 05/23/23 05/23/23 History traZODone HCL [Desyrel] 100 mg PO HS 05/23/23 05/23/23 History Allergies Allergy/AdvReac Type Severity Reaction Status Date / Time lisinopril Allergy Anaphylaxis Verified 05/23/23 17:33 Physical Exam Vitals: Vital Signs Temp Pulse Pulse Resp BP BP Pulse Ox 05/24/23 08:56 98 05/24/23 08:15 98.1 F 64 16 156/77 93 L 05/24/23 06:03 62 16 129/66 96 05/24/23 04:00 58 L 20 147/73 96 05/24/23 02:00 61 18 123/73 95 05/24/23 00:30 66 20 144/73 94 L 05/23/23 21:44 65 18 153/78 96 05/23/23 18:51 74 18 134/73 96 05/23/23 16:34 67 20 131/63 91 L 05/23/23 13:06 99.6 F 87 18 121/70 92 L Intake and Output 05/23/23 05/24/23 05/24/23 22:59 06:59 14:59 Other: Voiding Method Bedside Commode Weight 111.13 kg Results CBC & Chem 7: 05/24/23 06:42 05/24/23 06:42 Labs: Abnormal Lab Results - Last 24 Hours (Table) 05/23/23 05/23/23 05/23/23 Range/Units 14:31 14:31 14:31 Hgb (13.0-17.0) g/dL Hct (39.6-50.0) % RDW (11.5-14.5) % Lymphocytes # 0.5 L (1.0-4.8) k/uL Anion Gap (4.00-12.00) mmol/L BUN 29 H (9-20) mg/dL BUN/Creatinine Ratio (12.00-20.00) Ratio Glucose 101 H (74-99) mg/dL Calcium (8.7-10.3) mg/dL AST 66 H (17-59) U/L C-Reactive Protein (0.00-0.80) mg/dL SARS-CoV-2 (PCR) Detected A (Not Detectd) 05/24/23 05/24/23 Range/Units 06:42 06:42 Hgb 12.1 L (13.0-17.0) g/dL Hct 37.5 L (39.6-50.0) % RDW 15.5 H (11.5-14.5) % Lymphocytes # 0.59 L (1.0-4.8) k/uL Anion Gap 13.30 H (4.00-12.00) mmol/L BUN (9-20) mg/dL BUN/Creatinine Ratio 22.56 H (12.00-20.00) Ratio Glucose (74-99) mg/dL Calcium 8.2 L (8.7-10.3) mg/dL AST (17-59) U/L C-Reactive Protein 16.10 H (0.00-0.80) mg/dL SARS-CoV-2 (PCR) (Not Detectd) Assessment and Plan Plan: 1patient presented to hospital with generalized weakness increasing shortness of breath in this patient who did have a URI symptoms and cough and declined diagnosed with a COVID-19 about 12 days ago with symptoms more likely related to COVID-19 infection and no evidence of any secondary bacterial pneumonia 2-patient is currently out of the therapeutic window for remdesivir and low clinical suspicious for secondary bacterial pneumonia with a normal procalcitonin 3-keeping in mind the patient is hypoxic we will add dexamethasone and continue the zinc and ascorbic acid 4-left hip abnormality seen on the CT is more likely hematoma as there was no evidence of any redness tenderness to suspicious for infected hematoma hence no need for antibiotic therapy 5-gentle IV fluid We will follow on clinical condition and cultures to further adjust medication if needed Thank you for this consultation we will follow the patient along with you Dictation was produced using [employer] dictation software. please excuse any grammatical, word or spelling errors. Time with Patient: Greater than 30
[2023-05-25] MEDS: carvediloL 6.25 MG TAB PO SCH ×2 (06:16→17:10)
[2023-05-25] MEDS: SYMBICORT 160-4.5 MCG INHALER INHALATION SCH ×2 (09:01→20:02)
[2023-05-25] MEDS: DEXAMETHASONE SOD PHOSPHATE 10 MG/ML 1 ML VIAL IV SCH (10:38)
[2023-05-25] MEDS: CHOLECALCIFEROL 25 MCG (1000 IU) TABLET PO SCH (10:39)
[2023-05-25] MEDS: FAMOTIDINE 20 MG/2 ML VIAL IV SCH ×2 (10:39→21:08)
[2023-05-25] MEDS: TAMSULOSIN 0.4 MG CAP.ER.24H PO SCH (10:39)
[2023-05-25] MEDS: ZINC SULFATE 220 MG CAP PO SCH (10:39)
[2023-05-25] MEDS: SERTRALINE 50 MG TAB PO SCH (10:40)
[2023-05-25] MEDS: ASCORBIC ACID 500 MG TAB PO SCH (10:40)
[2023-05-25] MEDS: LOSARTAN 50 MG TAB PO SCH (10:40)
[2023-05-25] MEDS: amLODIPine 10 MG TAB PO SCH (10:40)
[2023-05-25] MEDS: CYANOCOBALAMIN 500 MCG TAB PO SCH (10:41)
[2023-05-25] MEDS: SODIUM CHLORIDE 0.9% 1,000 ML IV SCH (12:16)
--- NOTE | 2023-05-25 14:28 | XR ---
EXAMINATION TYPE: XR abdomen acute w cxr DATE OF EXAM: 05/25/2023 2:12 PM CLINICAL INDICATION:Male, 78 years old with history of sob, covid, abd distention; COMPARISON: 05/25/2023 TECHNIQUE: Two radiographic views of the abdomen (upright and supine) and a frontal chest radiograph were obtained. FINDINGS CHEST: Lungs/Pleura: The lungs are clear. There is no evidence of pleural effusion, focal consolidation or p neumothorax. Mediastinum: Unremarkable. Vasculature: Normal. Heart: Normal in size. Musculoskeletal: The osseous structures are intact. Other findings: No significant. FINDINGS ABDOMEN: Bowel gas pattern: Gaseous dilation of a few loops of bowel in the upper abdomen. Including the colon . Normal without dilated loops of small or large bowel. Fecal material and gas are demonstrated throu ghout the colon and rectum. Abnormal calcifications: None. Musculoskeletal: Multilevel degeneration changes throughout the spine. Other: None. IMPRESSION: 1. Gaseous dilation of what is thought to represent colon. If this concern for obstruction consider d edicated small bowel follow-through. No radiographic evidence for acute abdominal process. 2. No acute cardiopulmonary process. Low lung volumes are present.
--- NOTE | 2023-05-25 14:48 | P.GSCN ---
History of Present Illness Consult date: 05/25/23 History of present illness: CHIEF COMPLAINT: Cough and shortness of breath HISTORY OF PRESENT ILLNESS: This is a 78-year-old male who presented with cough and shortness of breath. He is COVID positive. Patient reports that was diagnosed with Covid by home test 12 days ago. He is still positive now. Patient reports that he just had not been feeling well. Reports decreased appetite. And then was only having small loose smears of a BM couple of times throughout the 12 days. And reports abdominal distention. No nausea or vomiting. In the ER he did have a liquidy stool and a small amount of flatus. Patient has a history of ulcerative colitis. Denies any prior abdominal surgeries. Denies a history of bowel obstruction. Surgical service consulted for possible ileus. Computed tomography scan had not shown no evidence of ileus or bowel obstruction. He is currently tolerating full liquid diet. PAST MEDICAL HISTORY: Coronary Artery Disease (CAD), Hyperlipidemia, Hypertension, Prostate Disorder, Sleep Apnea/CPAP/BIPAP, ulcerative colitis coronary disease with cardiac stents PAST SURGICAL HISTORY: No abdominal surgeries MEDICATIONS: See below ALLERGIES: See below SOCIAL HISTORY: No illicit drug use. REVIEW OF SYSTEMS: CONSTITUTIONAL: Denies fever or chills. HEENT: Denies blurred vision, vision changes, or eye pain. Denies hemoptysis CARDIOVASCULAR: Denies chest pain or pressure. RESPIRATORY: No shortness of breath. GASTROINTESTINAL: See HPI for pertinent findings HEMATOLOGIC: Denies bleeding disorders. GENITOURINARY: Denies any blood in urine or increased urinary frequency. SKIN: Denies pruitis. Denies rash. PHYSICAL EXAM: VITAL SIGNS: Reviewed GENERAL: Well-developed in no acute distress. HEENT: No sclera icterus. Extraocular movements grossly intact. Moist buccal mucosa. Head is atraumatic, normocephalic. No nasal drainage. ABDOMEN: Soft. Distended. Diffuse tenderness. NEUROLOGIC: Alert and oriented. Cranial nerves II through XII grossly intact. LABORATORY DATA: WBC 5.36 Hgb 12.1 platelets 144 Sodium 139 potassium is 4.2 creatinine 0.9 IMAGING: KUB x-ray nonspecific overall nonobstructive bowel gas pattern. Scattered small air-fluid levels could represent mild generalized ileus or enteritis.Stool burden. Computed tomography scan abdomen and pelvis diverticulosis without acute diverticulitis. No small bowel obstruction. No free air. Fluid collection over the left hip correlate for soft tissue hematoma. Infrarenal abdominal aortic aneurysm measuring 5 cm. Hepatic steatosis. Abdominal x-ray reports gaseous dilation of what is thought to represent colon. There is concerns for obstruction consider dedicated small bowel follow-through. No radiographic evidence of acute abdominal process. No acute cardiopulmonary process. ASSESSMENT: 1. Abdominal distention 2. Possible ileus 3. COVID-19 infection PLAN: -Continue full liquid diet -Continue to monitor -Continue supportive care Physician Compound Specialist note has been reviewed by physician. Signing provider agrees with the documented findings, assessment, and plan of care. Past Medical History Past Medical History: Coronary Artery Disease (CAD), Hyperlipidemia, Hypertension, Prostate Disorder, Sleep Apnea/CPAP/BIPAP Additional Past Medical History / Comment(s): bruising easily, no cpap used, colitis, diverticulitis, tnug carotid blockage, HAS 2 HEART STENTS IN, HAS A CYST ON KIDNEY THEY R WATCHING, "bulge" in his chest Dr Salazar is watching. cant remember the name History of Any Multi-Drug Resistant Organisms: None Reported Past Surgical History: Ear Surgery, Heart Catheterization With Stent, Orthopedic Surgery Additional Past Surgical History / Comment(s): 2 cardiac stents, ORIF rt wrist, skin graft left eardrum, surgery for deviated septum, rt cataract, surgery to remove a growth on scrotum, left carotid endartectomy Past Anesthesia/Blood Transfusion Reactions: No Reported Reaction Additional Past Anesthesia/Blood Transfusion Reaction / Comm: JEHOVAHS WITNESS- NO BLOOD TRANSFUSIONS Date of Last Stent Placement:: 01/31/2017 Past Psychological History: Depression Smoking Status: Former smoker Past Alcohol Use History: None Reported Past Drug Use History: None Reported - Past Family History Sister(s) Family Medical History: Cancer Brother(s) Family Medical History: Cancer Medications and Allergies Home Medications Medication Instructions Recorded Confirmed Type Aspirin EC [Ecotrin Low Dose] 81 mg PO DAILY 02/15/18 05/23/23 History Sertraline [Zoloft] 50 mg PO DAILY 02/15/18 05/23/23 History Tamsulosin HCl [Flomax] 0.4 mg PO DAILY 02/15/18 05/23/23 History Rosuvastatin [Crestor] 10 mg PO DAILY 04/08/20 05/23/23 History amLODIPine BESYLATE 10 mg PO DAILY 04/08/20 05/23/23 History sulfaSALAzine [Sulfasalazine Dr] 1,000 mg PO BID 08/20/20 05/23/23 History Ascorbic Acid [Vitamin C] 500 mg PO DAILY 05/23/23 05/23/23 History Cholecalciferol [Vitamin D3 (25 25 mcg PO DAILY 05/23/23 05/23/23 History Mcg = 1000 Iu)] Cyanocobalamin (Vitamin B-12) 1,000 mcg PO DAILY 05/23/23 05/23/23 History [Vitamin B-12] Losartan Potassium 100 mg PO DAILY 05/23/23 05/23/23 History carvediloL [Coreg] 6.25 mg PO BID 05/23/23 05/23/23 History traZODone HCL [Desyrel] 100 mg PO HS 05/23/23 05/23/23 History Allergies Allergy/AdvReac Type Severity Reaction Status Date / Time lisinopril Allergy Anaphylaxis Verified 05/23/23 17:33 Surgical - Exam Vital Signs Temp Pulse Resp BP Pulse Ox 99.6 F 87 18 121/70 92 L 05/23/23 13:06 05/23/23 13:06 05/23/23 13:06 05/23/23 13:06 05/23/23 13:06 Results - Labs 05/24/23 06:42 05/24/23 06:42
--- NOTE | 2023-05-25 16:43 | P.PN ---
Subjective Progress Note Date: 05/25/23 Principal diagnosis: Reason for follow-up is covid 19 infection Patient is a 78-year-old male with a past medical history significant for coronary disease hypertension hyperlipidemia prostate disorder patient apparently started getting sick about 2 weeks ago and apparently the patient did tested positive for COVID-19 about 12 days before presentation to the hospital p redominantly for increasing shortness of breath and weakness On today's evaluation that is 05/25/2023, the patient denies any fever or any chills, the patient is breathing comfortably on room air, patient denies chest pain shortness of breath mentioned the cough has improved and is mostly dry in nature denies any nausea no vomiting no abdominal pain no diarrhea feeling better Patient did have white count of 5.36 creatinine 0.9 as of yesterday normal lab draw today Objective - Vital Signs Vital signs: Vital Signs Temp 97.6 F 05/25/23 09:13 Pulse 58 L 05/25/23 09:13 Resp 20 05/25/23 09:13 BP 128/83 05/25/23 09:13 Pulse Ox 95 05/25/23 09:13 FiO2 Intake & Output 05/24/23 05/25/23 05/25/23 18:59 06:59 18:59 Intake Total 120 358 Output Total 250 825 Balance -130 -825 358 Weight 111.13 kg Intake: Oral 120 358 Output: Urine 250 825 Other: Voiding Method Bedside Commode Toilet Toilet Urinal Urinal # Voids 1 - Exam GENERAL DESCRIPTION: An elderly male lying in bed in no distress RESPIRATORY SYSTEM: Unlabored breathing , decreased breath sounds At the Base HEART: S1 S2 regular rate and rhythm , ABDOMEN: Soft , no tenderness EXTREMITIES: No edema feet - Labs CBC & Chem 7: 05/24/23 06:42 05/24/23 06:42 Assessment and Plan (1) COVID-19 Current Visit: Yes Status: Acute Code(s): U07.1 - COVID-19 SNOMED Code(s): 679781762 (2) Generalized weakness Current Visit: Yes Status: Acute Code(s): R53.1 - WEAKNESS SNOMED Code(s): 04866385 Plan: 1patient presented to hospital with generalized weakness increasing shortness of breath in this patient who did have a URI symptoms and cough and declined diagnosed with a COVID-19 about 12 days ago with symptoms more likely related to COVID-19 infection and no evidence of any secondary bacterial pneumonia 2-patient is currently out of the therapeutic window for remdesivir and low clinical suspicious for secondary bacterial pneumonia with a normal procalcitonin Patient did have clinical improvement and will continue with dexamethasone along with zinc and ascorbic acid 4-left hip abnormality seen on the CT is more likely hematoma as there was no evidence of any redness tenderness to suspicious for infected hematoma hence no need for antibiotic therapy 5-gentle IV fluid Dictation was produced using [employer] dictation software. please excuse any grammatical, word or spelling errors. Time with Patient: Less than 30
--- NOTE | 2023-05-25 18:04 | P.PN ---
Subjective This is a pleasant 78 years old male with multiple medical problems. Presents because of respiratory symptoms and not feeling well. He went to [facility] where he saw Dr. Estevez and he referred him to emergency room. Patient states for the last 12 days he's been feeling weaker every day and hard for him to breathe associated with cough and clear phlegm but no overt chest pain Also he is complaining of from constipation for few days abdominal distention and epigastric pain and tenderness. His symptoms are associated with sore throat for the last 12 days as well. No specific urinary symptoms, no headache dizziness weakness or numbness. He denies smoking alcohol or illicit drugs. Vital signs are stable and he is saturating well on room air CBC is unremarkable except for mild lymphopenia BMP is unremarkable, LFTs are unremarkable. covid test is positive , while rest of viral tests were negative To BE showing nonspecific gas pattern but suspicious for mild generalized ileus or enteritis. Chest x-ray showing bilateral patchy infiltrates per radiologist however when I reviewed the chest x-ray by myself that looks to me more prominent interstitial markings consistent more with a bronchitis rather than pneumonia 05/24/2024 Patient awake and alert , still generally week. With cough and mild tachypnea. No chest pain, no abdominal pain His abdomen is still distended but he is eating. No bowel movement. Hemodynamically stable Vascular surgery evaluated the patient, he already follows up for his his 5 cm abdominal aortic aneurysm, his left hip chronic hematoma is also followed been up with vascular surgery team with Patient was started on dexamethasone 6 mg, he is on normal saline 75 mL/h, no antibiotic. She, vitamin D and zinc We will consult general surgery because of his persistent abdominal distension Lovenox was discontinued because of hematoma Continue with Pepcid Review of systems CONSTITUTIONAL: No fever, no malaise, no fatigue. HEENT: No recent visual problems or hearing problems. Denied any sore throat. CARDIOVASCULAR: No orthopnea, PND, no palpitations, no syncope. GASTROINTESTINAL: No diarrhea, no nausea, no vomiting, no abdominal pain. Normoactive bowel sounds. NEUROLOGICAL: No headaches, no weakness, no numbness. HEMATOLOGICAL: Denies any bleeding or petechiae. Active Medications Generic Name Dose Route Start Last Admin Trade Name Freq PRN Reason Stop Dose Admin Albuterol Sulfate 2 puff 05/23/23 23:16 Albuterol Hfa Inhaler INHALATION RT-QID PRN Shortness Of Breath Or Wheezing Amlodipine Besylate 10 mg 05/24/23 11:15 05/25/23 10:40 Amlodipine 10 Mg Tab PO 10 mg DAILY CAMILA Administration Ascorbic Acid 1,000 mg 05/24/23 09:00 05/25/23 10:40 Ascorbic Acid 500 Mg Tab PO 1,000 mg DAILY CAMILA Administration Budesonide/Formoterol Fumarate 2 puff 05/24/23 08:00 05/25/23 09:01 Symbicort 160-4.5 Mcg Inhaler INHALATION 2 puff RT-BID CAMILA Administration Carvedilol 6.25 mg 05/24/23 11:15 05/25/23 17:10 Carvedilol 6.25 Mg Tab PO 6.25 mg BID-W/MEALS CAMILA Administration Cholecalciferol 50 mcg 05/23/23 21:45 05/25/23 10:39 Cholecalciferol 25 Mcg (1000 Iu) Tablet PO 50 mcg DAILY CAMILA Administration Cyanocobalamin 1,000 mcg 05/25/23 09:00 05/25/23 10:41 Cyanocobalamin 500 Mcg Tab PO 1,000 mcg DAILY CAMILA Administration Dexamethasone Sodium Phosphate 6 mg 05/24/23 21:15 05/25/23 10:38 Dexamethasone Sod Phosphate 10 Mg/Ml 1 Ml Vial IV 6 mg DAILY CAMILA Administration Famotidine 20 mg 05/23/23 21:30 05/25/23 10:39 Famotidine 20 Mg/2 Ml Vial IV 20 mg Q12HR CAMILA Administration Sodium Chloride 1,000 mls @ 75 mls/hr 05/24/23 07:15 05/25/23 12:16 Saline 0.9% IV Not Given .[id number] [facility] Losartan Potassium 100 mg 05/25/23 09:00 05/25/23 10:40 Losartan 50 Mg Tab PO 100 mg DAILY CAMILA Administration Sertraline HCl 50 mg 05/24/23 11:15 05/25/23 10:40 Sertraline 50 Mg Tab PO 50 mg DAILY CAMILA Administration Tamsulosin HCl 0.4 mg 05/24/23 11:15 05/25/23 10:39 Tamsulosin 0.4 Mg Cap.Er.24h PO 0.4 mg DAILY CAMILA Administration Trazodone HCl 100 mg 05/24/23 21:00 05/24/23 20:51 Trazodone Hcl 100 Mg Tab PO 100 mg HS CAMILA Administration Zinc Sulfate 220 mg 05/24/23 09:00 05/25/23 10:39 Zinc Sulfate 220 Mg Cap PO 220 mg DAILY CAMILA Administration Objective - Vital Signs Vital signs: Vital Signs Temp 98.2 F 05/24/23 15:52 Pulse 63 05/24/23 15:52 Resp 20 05/24/23 15:52 BP 146/73 05/24/23 15:52 Pulse Ox 96 05/24/23 15:52 FiO2 Intake & Output 05/23/23 05/24/23 05/24/23 18:59 06:59 18:59 Output Total 250 Balance -250 Weight 111.13 kg 111.13 kg Output: Urine 250 Other: Voiding Method Bedside Commode # Voids 1 - Exam -GENERAL: The patient is alert and oriented x3, not in any acute distress. Obese HEENT: Pupils are round and equally reacting to light. EOMI. No scleral icterus. No conjunctival pallor. Normocephalic, atraumatic. No pharyngeal erythema. No thyromegaly. CARDIOVASCULAR: S1 and S2 present. No murmurs, rubs, or gallops. PULMONARY: Chest is clear to auscultation, no wheezing , no crackles. -ABDOMEN: Soft, nontender, distended, normoactive bowel sounds. No palpable organomegaly. MUSCULOSKELETAL: No joint swelling or deformity. EXTREMITIES: No cyanosis, clubbing, or pedal edema. NEUROLOGICAL: Gross neurological examination did not reveal any focal deficits. SKIN: No rashes. no petechiae. - Labs CBC & Chem 7: 05/24/23 06:42 05/24/23 06:42 Labs: Abnormal Lab Results - Last 24 Hours (Table) 05/24/23 05/24/23 Range/Units 06:42 06:42 Hgb 12.1 L (13.0-17.0) g/dL Hct 37.5 L (39.6-50.0) % RDW 15.5 H (11.5-14.5) % Lymphocytes # 0.59 L (0.90-5.00) X 10*3/uL Anion Gap 13.30 H (4.00-12.00) mmol/L BUN/Creatinine Ratio 22.56 H (12.00-20.00) Ratio Calcium 8.2 L (8.7-10.3) mg/dL C-Reactive Protein 16.10 H (0.00-0.80) mg/dL Assessment and Plan Assessment: Acute tracheobronchitis secondary to covid infection Generalized abdominal ileus versus enteritis associated Generalized weakness Obesity. 5 cm abdominal aortic aneurysm Left hip hematoma, chronic Plan: Start gentle hydration with normal saline 75 mL/h Continue with dexamethasone Vitamin C, D and zinc Infectious disease consult Vascular surgery consult recommended no surgical intervention regarding his abdominal aneurysm and hematoma We will consult general surgery team Labs and medication were reviewed.. Continue same treatment. Continue with symptomatic treatment. Resume home medication. Monitor labs and vitals. DVT and GI prophylaxis. Further recommendations as per clinical course of the patient DVT prophylaxis: Subcutaneous Lovenox GI Prophylaxis: Pepcid PT/OT: Pending Prognosis is guarded
[2023-05-25] MEDS: traZODone HCL 100 MG TAB PO SCH (21:08)
[2023-05-26] MEDS: SODIUM CHLORIDE 0.9% 1,000 ML IV SCH ×2 (02:05→17:34)
--- NOTE | 2023-05-26 05:29 | P.PN ---
Subjective Progress Note Date: 05/25/23 This is a pleasant 78 years old male with multiple medical problems. Presents because of respiratory symptoms and not feeling well. He went to urgent care where he saw Dr. Estevez and he referred him to emergency room. Patient states for the last 12 days he's been feeling weaker every day and hard for him to breathe associated with cough and clear phlegm but no overt chest pain Also he is complaining of from constipation for few days abdominal distention and epigastric pain and tenderness. His symptoms are associated with sore throat for the last 12 days as well. No specific urinary symptoms, no headache dizziness weakness or numbness. He denies smoking alcohol or illicit drugs. Vital signs are stable and he is saturating well on room air CBC is unremarkable except for mild lymphopenia BMP is unremarkable, LFTs are unremarkable. covid test is positive , while rest of viral tests were negative To BE showing nonspecific gas pattern but suspicious for mild generalized ileus or enteritis. Chest x-ray showing bilateral patchy infiltrates per radiologist however when I reviewed the chest x-ray by myself that looks to me more prominent interstitial markings consistent more with a bronchitis rather than pneumonia 05/25/2023 Patient is seen in follow-up today and appears to have abdominal distention. Patient reports to passing minimal gas and reports has not had a bowel movement. Per nursing staff patient had a small smear of a bowel movement yesterday and maintained on full liquid diet. General surgery following with no plans of surgical intervention at this time. Will order abdominal x-ray. Patient is afebrile denies chest pain or shortness of breath. Patient currently maintained on 2 L nasal cannula and reports does not wear oxygen outpatient. Will attempt to wean FiO2. Vascular surgery has evaluated the patient with no plans of intervention and will follow-up outpatient regarding his chronic aortic aneurysm as well as left hip hematoma. Patient with significant weakness would recommend physical therapy evaluation. Patient reports he lives at home with family. Review of systems: Constitutional: No reports of fatigue, fever, or chills Cardiovascular: No reports of chest pain or palpitations Respiratory: No reports of shortness of breath or cough GI: No reports of nausea, vomiting, or diarrhea, reports not having bowel movements and some abdominal discomfort : No reports of dysuria or retention Neurovascular: reports of generalized weakness All medications have been reviewed Physical exam: GENERAL: The patient is alert and oriented x3, not in any acute respiratory distress, obese. Generally weak HEENT: Pupils are round and equally reacting to light. EOMI. No scleral icterus. No conjunctival pallor. Normocephalic, atraumatic. No pharyngeal erythema. No thyromegaly. CARDIOVASCULAR: S1 and S2 present. No murmurs, rubs, or gallops. PULMONARY: Diminished breath sounds bilaterally otherwise Chest is clear to auscultation, no wheezing , no crackles. ABDOMEN: Soft, mild epigastric tenderness without guarding or rebound tenderness,, continues to be distended, normoactive bowel sounds. No palpable organomegaly. MUSCULOSKELETAL: No joint swelling or deformity. EXTREMITIES: No cyanosis, clubbing, or pedal edema. NEUROLOGICAL: Gross neurological examination did not reveal any focal deficits. Diffusely weak SKIN: No rashes. no petechiae. Assessment: Acute tracheobronchitis secondary to covid infection , bacterial superinfection cannot be entirely excluded acute hypoxic respiratory failure, possibly secondary to above Generalized abdominal ileus versus enteritis associated with epigastric pain and tenderness Generalized weakness History of coronary artery disease with stents Hyperlipidemia Hypertension History of prostate disorder History of sleep apnea, does not use a CPAP Obesity with a BMI of 37.3 GI prophylaxis DVT prophylaxis Full code Plan: Continue gentle hydration with normal saline 75 mL/h Wean FiO2 as tolerated as patient is currently on 2 L and reports does not wear oxygen outpatient Continue bronchodilator Vitamin C, D and zinc Zithromax short oral course Infectious disease consulted and pending X-ray of the abdomen is patient continues to be distended with Gen. surgery following, no plans for surgical intervention. Patient reports has not had a bowel movement Continue full liquid diet and advance per surgery recommendations Patient with significant weakness will have physical therapy evaluate the patient is patient reports he lives at home The impression and plan of care has been dictated by Lynda Agustin Nurse Practitioner as directed. Dr. Memo MD I have performed a history and examination and MDM of this patient, discussed the same with the dictator, and agree with the dictator's assessment and plan as written ,documented as a scribe. Based on total visit time, I have performed more than 50% of the visit. Objective - Vital Signs Vital signs: Vital Signs Temp 97.6 F 05/25/23 09:13 Pulse 58 L 05/25/23 09:13 Resp 20 05/25/23 09:13 BP 128/83 05/25/23 09:13 Pulse Ox 95 05/25/23 09:13 FiO2 Intake & Output 05/24/23 05/25/23 05/25/23 18:59 06:59 18:59 Intake Total 120 Output Total 250 825 Balance -130 -825 Weight 111.13 kg Intake: Oral 120 Output: Urine 250 825 Other: Voiding Method Bedside Commode Toilet Urinal # Voids 1 - Labs CBC & Chem 7: 05/24/23 06:42 05/24/23 06:42 Labs: Abnormal Lab Results - Last 24 Hours (Table) 05/24/23 05/24/23 Range/Units 06:42 06:42 Hgb 12.1 L (13.0-17.0) g/dL Hct 37.5 L (39.6-50.0) % RDW 15.5 H (11.5-14.5) % Lymphocytes # 0.59 L (0.90-5.00) X 10*3/uL Anion Gap 13.30 H (4.00-12.00) mmol/L BUN/Creatinine Ratio 22.56 H (12.00-20.00) Ratio Calcium 8.2 L (8.7-10.3) mg/dL C-Reactive Protein 16.10 H (0.00-0.80) mg/dL
[2023-05-26] MEDS: carvediloL 6.25 MG TAB PO SCH ×2 (06:43→17:34)
[2023-05-26] MEDS: SYMBICORT 160-4.5 MCG INHALER INHALATION SCH (08:42)
[2023-05-26] MEDS: ASCORBIC ACID 500 MG TAB PO SCH (09:02)
[2023-05-26] MEDS: LOSARTAN 50 MG TAB PO SCH (09:02)
[2023-05-26] MEDS: amLODIPine 10 MG TAB PO SCH (09:02)
[2023-05-26] MEDS: TAMSULOSIN 0.4 MG CAP.ER.24H PO SCH (09:02)
[2023-05-26] MEDS: ZINC SULFATE 220 MG CAP PO SCH (09:02)
[2023-05-26] MEDS: CYANOCOBALAMIN 500 MCG TAB PO SCH (09:02)
[2023-05-26] MEDS: CHOLECALCIFEROL 25 MCG (1000 IU) TABLET PO SCH (09:02)
[2023-05-26] MEDS: SERTRALINE 50 MG TAB PO SCH (09:07)
[2023-05-26] MEDS: DEXAMETHASONE SOD PHOSPHATE 10 MG/ML 1 ML VIAL IV SCH (09:58)
[2023-05-26] MEDS: FAMOTIDINE 20 MG/2 ML VIAL IV SCH (09:58)
[2023-05-26] MEDS ORDERED: DOCUSATE 100 MG CAP PO SCH (10:30)
[2023-05-26] MEDS ORDERED: polyethylene glycoL 3350 17 GM POWD.PACK PO SCH (10:30)
--- NOTE | 2023-05-26 13:19 | P.PN ---
Subjective Progress Note Date: 05/26/23 CHIEF COMPLAINT: Cough and shortness of breath HISTORY OF PRESENT ILLNESS: Patient denies any abdominal pain. Denies any nausea or vomiting. No further bowel movements. Abdominal x-ray reports gaseous dilation of what is thought to represent colon. If there is concern for obstruction considered dedicated small bowel follow-through. No evidence for acute abdominal process. Patient reports that his abdomen is back to his normal size. He tolerated the full liquids. He reports that he usually takes stool softeners improved use to help with bowel movements. PHYSICAL EXAM: VITAL SIGNS: Reviewed. GENERAL: Well-developed in no acute distress. HEENT: No sclera icterus. Extraocular movements grossly intact. Moist buccal mucosa. Head is atraumatic, normocephalic. ABDOMEN: Soft. Nondistended. Nontender. NEUROLOGIC: Alert and oriented. Cranial nerves II through XII grossly intact. ASSESSMENT: 1. Abdominal distention improved 2. Possible ileus 3. COVID-19 infection PLAN: -Add MiraLAX and Colace -Okay to have prune juice -Advance diet to regular -Patient can be discharge from surgical standpoint. Please call with any questions or concerns -Recommend a good bowel regimen at discharge Physician [employer] note has been reviewed by physician. Signing provider agrees with the documented findings, assessment, and plan of care. Objective - Vital Signs Vital signs: Vital Signs Temp 98.3 F 05/26/23 01:23 Pulse 62 05/26/23 01:23 Resp 16 05/26/23 01:23 BP 137/72 05/26/23 01:23 Pulse Ox 93 L 05/26/23 08:46 FiO2 Intake & Output 05/25/23 05/26/23 05/26/23 18:59 06:59 18:59 Intake Total 656 Output Total 250 Balance 406 Intake: Oral 656 Output: Urine 250 Other: Voiding Method Toilet Toilet Urinal Urinal # Voids 1 - Labs CBC & Chem 7: 05/24/23 06:42 05/24/23 06:42
[2023-05-26 14:23] VITALS: BP 109/63; PULSE 65; RESP 18; TEMP 97.7
--- NOTE | 2023-05-27 11:48 | P.DS ---
Providers Date of admission: 05/23/23 17:45 Expected date of discharge: 05/26/23 Attending physician: Dick James MD Consults: 05/23/23 21:32 Consult Physician Routine Consulting Provider: Xiomy Bran Consult Reason/Comments: broncitis, covid Do you want consulting provider notified?: Yes, Notify in am 05/24/23 07:09 Consult Physician Urgent Consulting Provider: Kassandra Daley Consult Reason/Comments: AAA, hemotoma Do you want consulting provider notified?: Yes Primary care physician: Kahlil Bliss Hospital Course: Final diagnosis Acute tracheobronchitis secondary to covid infection , bacterial superinfection cannot be entirely excluded acute hypoxic respiratory failure, possibly secondary to above, improved on room air Generalized abdominal ileus versus enteritis associated with epigastric pain and tenderness, improved Generalized weakness History of coronary artery disease with stents Hyperlipidemia Hypertension History of prostate disorder History of sleep apnea, does not use a CPAP Obesity with a BMI of 37.3 GI prophylaxis DVT prophylaxis Full code Discharge disposition Patient is being discharged in a stable condition with guarded prognosis to home. Patient will follow-up with Dr. Bliss in the outpatient setting upon discharge. Patient is to continue with bowel regimen on discharge as well as steroid taper. Recommend follow-up with general surgery outpatient as scheduled. Total time taken is greater than 35 minutes. Hospital course This is a 78-year-old male who was recently admitted with cough and concerns of acute tracheobronchitis secondary to COVID-19 infection. Patient was also requiring 2 L of oxygen with acute hypoxic respiratory failure Improved and patient is on room air. Patient had home O2 eval done and does not qualify for oxygen as patient maintain oxygen saturations above 91% on room air. Patient also being seen and evaluated by general surgery with generalized abdominal distention with concern for ileus versus enteritis. Patient has bowel issues and has been having urinal bowel maintained on medications and recommend outpatient follow-up with primary care provider. Patient was seen and evaluated by general surgery recommending to continue with bowel regimen and close outpatient follow-up. Patient tolerating diet with no reports of further abdominal pain noted. Patient was seen and evaluated by physical therapy recommending home with home care. Please refer to other consultation notes for HPI. Working Currently no reports of chest pain, shortness of breath, or palpitations. Patient is afebrile. No reports of nausea or vomiting and patient is tolerating diet. Patient will be discharged home today today. Physical exam: Gen: This is a 78-year-old male who is awake, alert and oriented 3, well- developed, well-nourished, obese HEENT: Head is atraumatic, normocephalic. Pupils equal, round. Sclerae is anicteric. NECK: Supple. No JVD. No lymphadenopathy. No thyromegaly. LUNGS: Diminished Breath sounds bilaterally otherwise Clear to auscultation. No wheezes , coarse rhonchi. No intercostal retractions. HEART: Regular rate and rhythm. No murmur. ABDOMEN: Soft. Obese. Mildly distended, nontender Bowel sounds are present. No masses. EXTREMITIES: No pedal edema. No calf tenderness. NEUROLOGICAL: Patient is awake, alert and oriented x3. Cranial nerves 2 through 12 are grossly intact. Diffusely weak Please refer to medication reconciliation sheet for a list of medications. The impression and plan of care has been dictated by Lynda Agustin, Nurse Practitioner as directed. Dr. Memo MD I have performed a history and examination and MDM of this patient, discussed the same with the dictator, and agree with the dictator's assessment and plan as written ,documented as a scribe. Based on total visit time, I have performed more than 50% of the visit. Patient Condition at Discharge: Fair Plan - Discharge Summary Discharge Rx Participant: No New Discharge Prescriptions: New Docusate [Colace] 100 mg PO BID #60 cap polyethylene glycoL 3350 [Miralax] 17 gm PO DAILY 30 Days #30 packet Zinc Sulfate [Orazinc] 220 mg PO DAILY 15 Days #15 cap Albuterol Inhaler [Ventolin Hfa Inhaler] 2 puff INHALATION RT-QID PRN 30 Days #1 each PRN Reason: Shortness Of Breath Or Wheezing dexAMETHasone [Decadron] 6 mg PO DAILY 5 Days #5 tablet Continue Tamsulosin HCl [Flomax] 0.4 mg PO DAILY Sertraline [Zoloft] 50 mg PO DAILY Aspirin EC [Ecotrin Low Dose] 81 mg PO DAILY amLODIPine BESYLATE 10 mg PO DAILY Rosuvastatin [Crestor] 10 mg PO DAILY sulfaSALAzine [Sulfasalazine Dr] 1,000 mg PO BID Losartan Potassium 100 mg PO DAILY Cholecalciferol [Vitamin D3 (25 Mcg = 1000 Iu)] 25 mcg PO DAILY traZODone HCL [Desyrel] 100 mg PO HS Ascorbic Acid [Vitamin C] 500 mg PO DAILY carvediloL [Coreg] 6.25 mg PO BID Cyanocobalamin (Vitamin B-12) [Vitamin B-12] 1,000 mcg PO DAILY Discharge Medication List Aspirin EC [Ecotrin Low Dose] 81 mg PO DAILY 02/15/18 [History] Sertraline [Zoloft] 50 mg PO DAILY 02/15/18 [History] Tamsulosin HCl [Flomax] 0.4 mg PO DAILY 02/15/18 [History] Rosuvastatin [Crestor] 10 mg PO DAILY 04/08/20 [History] amLODIPine BESYLATE 10 mg PO DAILY 04/08/20 [History] sulfaSALAzine [Sulfasalazine Dr] 1,000 mg PO BID 08/20/20 [History] Ascorbic Acid [Vitamin C] 500 mg PO DAILY 05/23/23 [History] Cholecalciferol [Vitamin D3 (25 Mcg = 1000 Iu)] 25 mcg PO DAILY 05/23/23 [History] Cyanocobalamin (Vitamin B-12) [Vitamin B-12] 1,000 mcg PO DAILY 05/23/23 [History] Losartan Potassium 100 mg PO DAILY 05/23/23 [History] carvediloL [Coreg] 6.25 mg PO BID 05/23/23 [History] traZODone HCL [Desyrel] 100 mg PO HS 05/23/23 [History] Albuterol Inhaler [Ventolin Hfa Inhaler] 2 puff INHALATION RT-QID PRN 30 Days #1 each 05/26/23 [Rx] Docusate [Colace] 100 mg PO BID #60 cap 05/26/23 [Rx] Zinc Sulfate [Orazinc] 220 mg PO DAILY 15 Days #15 cap 05/26/23 [Rx] dexAMETHasone [Decadron] 6 mg PO DAILY 5 Days #5 tablet 05/26/23 [Rx] polyethylene glycoL 3350 [Miralax] 17 gm PO DAILY 30 Days #30 packet 05/26/23 [Rx] Follow up Appointment(s)/Referral(s): Luis Salazar DO [STAFF PHYSICIAN] - 1 Week (Reschedule follow up for aortic aneurysm.) Kahlil Bliss [Primary Care Provider] - 1-2 days Activity/Diet/Wound Care/Special Instructions: Activity Limited until follow-up Follow-up with primary care provider on discharge Continue taking medications as prescribed Continue using inhaler every 4-6 hours as needed Continue with incentive spirometer Continue on bowel regimen and hold if having loose stools Continue low fiber diet for the next few days Discharge Disposition: HOME SELF-CARE
== END 2023-05-26 17:51 | disposition home or self-care (01) | DRG 177 ==
LOC: EC 12:42 → OBSVTOIN 17:45 → 6NMEDSUR 17:45
PROVIDERS: ADMIT Internal Medicine; ATTEND Internal Medicine
DX: U07.1 COVID-19 (principal); J96.01 Acute respiratory failure with hypoxia; K56.7 Ileus, unspecified; K51.90 Ulcerative colitis, unspecified, without complications; I71.43 Infrarenal abdominal aortic aneurysm, without rupture; E66.9 Obesity, unspecified; Z68.37 Body mass index [BMI] 37.0-37.9, adult; J20.8 Acute bronchitis due to other specified organisms; E78.5 Hyperlipidemia, unspecified; F32.A Depression, unspecified; S70.02XA Contusion of left hip, initial encounter; I10 Essential (primary) hypertension; Z20.822 Contact with and (suspected) exposure to COVID-19; I25.10 Atherosclerotic heart disease of native coronary artery without angina pectoris; Z79.82 Long term (current) use of aspirin; Z79.899 Other long term (current) drug therapy; Z86.79 Personal history of other diseases of the circulatory system; Z95.5 Presence of coronary angioplasty implant and graft
CPT/HCPCS: 36415; 71046; 73501; 74018; 74022; 74177; 80048; 80053; 83615; 84145; 85025; 86140; 87636; 94640; 94760; 96361; 96374; 96376; 99285

== ENCOUNTER → 2024-03-18 | Outpatient (CLI) | payer MEDICARE ==
--- NOTE | 2024-03-18 12:15 | XR ---
EXAMINATION TYPE: XR chest 2V DATE OF EXAM: 03/18/2024 12:03 PM COMPARISON: Chest radiographs from 05/23/2023, CTA chest 09/16/2022 TECHNIQUE: XR chest 2V Frontal and lateral views of the chest. CLINICAL INDICATION:Male, 79 years old with history of R91.8 OTHER NONSPECIFIC ABNORMAL FINDING OF MADHURI NG F; FINDINGS: Lungs/Pleura: There is no evidence of pleural effusion, focal consolidation, or pneumothorax. Pulmonary vascularity: Unremarkable. Heart/mediastinum: Cardiomediastinal silhouette is unremarkable. Musculoskeletal: Multiple level degenerative disc disease changes seen throughout the spine. IMPRESSION: No acute cardiopulmonary disease/process. [facility], , 03/18/2024 12:12 PM
== END | disposition home or self-care (01) ==
LOC: RADXRMAIN 11:49
PROVIDERS: ATTEND Family Medicine
DX: R91.8 Other nonspecific abnormal finding of lung field (principal)
CPT/HCPCS: 71046

== ENCOUNTER → 2024-06-17 | Outpatient (CLI) | payer MEDICARE ==
[2024-06-17 14:06] LABS: African American GFR (CKD) 76 (>60 ml/min/1.73 sqM); Blood Urea Nitrogen 26 mg/dL (9-20); Non-African American GFR(CKD) 66 (>60 ml/min/1.73 sqM)
--- NOTE | 2024-06-17 14:42 | CT ---
EXAMINATION TYPE: CT angio neck CT DLP: 375.8 mGycm, Automated exposure control for dose reduction was used. DATE OF EXAM: 06/17/2024 2:31 PM COMPARISON: CT neck 12/16/2021, 07/07/2020, carotid ultrasound 05/29/2020. CLINICAL INDICATION:Male, 79 years old with history of I65.29 STENOSIS CAROTID ARTERY; PHH, carotid s tenosis TECHNIQUE: Axially acquired helical CT angiogram of the neck was obtained with contrast utilizing 100 cc of Isovue-370 administered intravenously. Axial images are supplemented with 3D reconstructions wh ich were post-processed at an independent workstation. NASCET criteria used. FINDINGS: CTA NECK: Right Carotid System: The common carotid artery and external carotid artery are patent. Moderate atherosclerotic plaque josé miguel ntified within the carotid bifurcation extending into the proximal internal and external carotid silvia mandy. Mild to moderate stenosis at the origin of the right external iliac artery. There is approximat lynsey 70% stenosis at the origin of the internal carotid artery secondary to calcified and noncalcified plaque. The remaining portions of the internal carotid artery demonstrate normal size without signif icant narrowing. Left Carotid System: The common carotid artery and external carotid artery are patent. Minimal calcified plaque identified within the left proximal external carotid artery and common carotid artery. The carotid bifurcation demonstrates no evidence of hemodynamically significant stenosis. The remaining portions of the inter nal carotid artery demonstrate normal size without significant narrowing. Vertebral arteries are patent without evidence hemodynamically significant stenosis. Dominant left ve rtebral artery. There is a three-vessel aortic arch. Mild atherosclerotic calcification of the aortic arch and its br anches. Mild stenosis at the origin of the right subclavian artery secondary to calcified plaque. The visualized portions of the ascending thoracic aorta measuring up to 4.1 cm. Multilevel degenerative changes of the cervical spine. IMPRESSION: 1. Approx 70% stenosis at the origin of the right internal carotid artery secondary to calcified and noncalcified plaque. 2. No evidence of hemodynamically significant stenosis of the left carotid arterial system. 3. Partial visualization of ascending thoracic aortic aneurysm measuring up to 4.1 cm. [facility], , 06/17/2024 2:40 PM
== END | disposition home or self-care (01) ==
LOC: RADCTMAIN 13:27
PROVIDERS: ATTEND Surgery
DX: I65.23 Occlusion and stenosis of bilateral carotid arteries (principal); I71.21 Aneurysm of the ascending aorta, without rupture; I70.0 Atherosclerosis of aorta
CPT/HCPCS: 82565; 84520; 70498; 36415; Q9967

== ENCOUNTER → 2024-07-05 | Outpatient (CLI) | payer MEDICARE ==
[2024-07-05 14:42] LABS: African American GFR (CKD) 68 (>60 ml/min/1.73 sqM); Blood Urea Nitrogen 24 mg/dL (9-20); Non-African American GFR(CKD) 59 (>60 ml/min/1.73 sqM)
--- NOTE | 2024-07-06 10:06 | CT ---
EXAMINATION TYPE: CT angio thor/abd pel aorta CT DLP: 2239.2 mGycm, Automated exposure control for dose reduction was used. DATE OF EXAM: 07/05/2024 3:31 PM COMPARISON: CT abdomen and pelvis 05/23/2023, 08/25/2020, CTA chest 09/16/2022, aortic ultrasound 2019. CLINICAL INDICATION:Male, 79 years old with history of I71.43 INFRARENAL ABDOMINAL AORTIC ANEURYSM,I7 1.2; PHH, Monitoring aneurysm x 2 TECHNIQUE: Multiple axial CT images of the chest, abdomen, and pelvis were obtained prior and to the administration of IV contrast. 3-D reformats and maximum intensity projection format were performed o n a separate workstation. Then the abdomen was scanned after administration of 80 cc of Isovue 370 IV contrast. FINDINGS: ARTERIAL VASCULATURE: Moderate atherosclerotic calcification of the aorta and its branches. No eviden ce for intramural hematoma or dissection. Conventional three-vessel aortic arch. No significant steno sis of the origins of the great vessels. Moderate stenosis at the origin of the right subclavian silvia ry secondary to calcified plaque. Aortic root measures up to 3.5 cm. Mild fusiform aneurysmal dilatation of the ascending thoracic aort a measuring up to 4.0 cm. Previously measured 3.9 cm a CTA chest 09/16/2022. No extension into the arch . The descending thoracic aorta measures up to 3.3 cm. Fusiform infrarenal abdominal aortic aneurysm measuring 7.4 x 5.1 cm in AP and CC dimensions (series 3, image 78). Previously measured 5.5 x 3.[address] 05/23/2023. The celiac access and KALANI are patent with minimal stenosis at the origins. The bilateral single renal arteries are patent with mild to moderate stenosis at their origins. Poor enhancement of the KALANI at its origin with prominent arterial enhancement distally. 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 There is manager of internal al enhancement identified. The bilateral common iliac arteries are patent with moderate stenosis at the origin secondary to calc ified plaque. Stable aneurysmal dilatation of the right common iliac artery measuring up to 2.1 cm. T he bilateral internal and external iliac arteries are patent with multi segment huri-nq-bclefulq sten osis. The bilateral visualized common femoral arteries are patent with mild to moderate multilevel se gment stenosis. PULMONARY ARTERIAL VASCULATURE: Normal caliber. No evidence of filling defect to suggest pulmonary em bolus. VENOUS SYSTEM: Unremarkable. Lungs/pleura: No pleural effusion, pneumothorax, focal consolidation. No suspicious pulmonary nodule or mass. Heart: Within normal limits. No pericardial effusion. Rqva-sy-kqjhphmx coronary artery calcifications . Mediastinum: No gross evidence of adenopathy. Lower Neck: No significant findings. Soft tissues: Bilateral gynecomastia. Abdomen: Liver: Unremarkable. Gallbladder and Bile ducts: Tiny gallstone. No biliary duct dilatation. Pancreas: Unremarkable. Spleen: Unremarkable. Adrenal glands: Unremarkable. Kidneys and Ureters: No hydronephrosis or right renal calculi. Punctate nonobstructive left renal susannah culus. Mild bilateral perinephric fat stranding. Couple of exophytic right renal cysts with largest m easuring up to 4.5 cm. Additional bilateral subcentimeter renal cortical cysts. Stomach and Bowel: Distal colonic diverticulosis without evidence for acute diverticulitis. No focal bowel wall thickening. No evidence of bowel obstruction. Peritoneum: No evidence of pneumoperitoneum, free fluid, or adenopathy. Bladder: Unremarkable. Reproductive: Enlarged prostate gland measuring 5.7 cm in transverse dimension. Abdominal wall/soft tissues: Small fat filled umbilical hernia. Decreased size of partially visualize d fluid collection along the lateral aspect of the left greater trochanter (series 3, image 123). Musculoskeletal: The osseous structures appear intact. Multilevel degenerative disc disease. Prominen t endplate sclerosis at T12-L1. DISH of the thoracic spine. Degenerative changes of the bilateral SI joints with right anterior bridging. IMPRESSION: 1. Increased size of fusiform infrarenal abdominal aortic aneurysm measuring 7.4 x 5 x 1 cm. Previous ly measured 5.5 x 3.[address] 05/23/2023. No evidence for dissection or intramural hematoma. Vascula r surgical consultation is recommended. 2. Relatively stable size of fusiform ascending thoracic aortic aneurysm measuring 4.0 cm, previously measured 3.9 cm on CTA chest 09/16/2022. No evidence for dissection or intramural hematoma. 3. 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 4. 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 5. Moderate atherosclerotic disease of the aorta and its branches. Moderate stenosis involving the or igin of the right subclavian artery secondary to calcified plaque. 6. Punctate nonobstructive left renal calculus. 7. Colonic diverticulosis without evidence for acute diverticulitis. 8. Cholelithiasis. [facility], , 07/06/2024 10:04 AM
== END | disposition home or self-care (01) ==
LOC: RADCTMAIN 13:54
PROVIDERS: ATTEND Surgery
DX: I71.43 Infrarenal abdominal aortic aneurysm, without rupture (principal); N20.0 Calculus of kidney; K57.30 Diverticulosis of large intestine without perforation or abscess without bleeding; K80.20 Calculus of gallbladder without cholecystitis without obstruction; I70.0 Atherosclerosis of aorta; I71.21 Aneurysm of the ascending aorta, without rupture
CPT/HCPCS: 82565; 84520; 71275; 36415; 74174; Q9967

== ENCOUNTER 2024-08-28 06:30 | Inpatient (IN) | payer MEDICARE ==
[2024-08-28] MEDS ORDERED: ALPRAZolam 0.25 MG TAB PO PRN (07:02)
[2024-08-28] MEDS ORDERED: ZOLPIDEM 5 MG TAB PO PRN (07:02)
[2024-08-28 07:52] LABS: Basophils % (A) 1 %; Eosinophils # (A) 0.4 k/uL (0-0.7); Eosinophils % (A) 9 %; HCT 43.7 % (39.0-53.0); HGB 13.9 gm/dL (13.0-17.5); Hypochromasia Slight; Lymphocytes # (A) 0.9 k/uL (1.0-4.8); Lymphocytes % (A) 20 %; MCH 27.1 pg (25.0-35.0); MCHC 31.8 g/dL (31.0-37.0); MCV 85.3 fL (80.0-100.0); Mean Platelet Volume 7.5; Monocytes # (A) 0.4 k/uL (0-1.0); Monocytes % (A) 8 %; Neutrophils # (A) 2.8 k/uL (1.3-7.7); Neutrophils % (A) 60 %; Platelet Count 163 k/uL (150-450); RBC 5.13 m/uL (4.30-5.90); RDW 15.1 % (11.5-15.5); WBC 4.7 k/uL (3.8-10.6)
[2024-08-28 08:00] LABS: African American GFR (CKD) >90 (>60 ml/min/1.73 sqM); Anion Gap 7 mmol/L; Blood Urea Nitrogen 18 mg/dL (9-20); Calcium 9.6 mg/dL (8.4-10.2); Carbon Dioxide 29 mmol/L (22-30); Chloride 103 mmol/L (98-107); Glucose 109 mg/dL (74-99); Non-African American GFR(CKD) 80 (>60 ml/min/1.73 sqM); Potassium 4.4 mmol/L (3.5-5.1); Sodium 139 mmol/L (137-145)
[2024-08-28] MEDS: SODIUM CHLORIDE 0.9% 1,000 ML in EMPTY BAG 1 BAG IV ONE (08:03)
[2024-08-28] MEDS: IV FLUID CONTINUATION 1,000 ML IV ONE ×2 (08:07→13:46)
--- NOTE | 2024-08-28 08:07 | P.ANPRN ---
Procedure Note - Anesthesia - Invasive Line Right Arterial Line Time Out Performed: Yes Date of Procedure: 08/28/24 Time of Procedure: 07:41 Location of Patient: [facility] Preparation: Sterile Prep, Sterile Dressing Arterial Line Location: Radial Ultrasound Used: No Purpose - Visualization and Identification of Vasculature: No Image Stored and Saved: No Narrative: Invasive line placement per sterile protocol utilized.
[2024-08-28] MEDS ORDERED: PHENYLEPHRINE 10 MG/ML VIAL ONE (08:25)
[2024-08-28] MEDS ORDERED: PROPOFOL 10 MG/ML 20 ML VIAL IV ONE (08:25)
[2024-08-28] MEDS ORDERED: ePHEDrine 50 MG/ML 1 ML VIAL ONE (08:25)
[2024-08-28] MEDS ORDERED: ROCURONIUM 10 MG/ML (5 ML VIAL) IV ONE (08:25)
[2024-08-28] MEDS ORDERED: NEOSTIGMINE 1 MG/ML 10 ML VIAL ONE (08:25)
[2024-08-28] MEDS ORDERED: SUCCINYLCHOLINE CHLORIDE 200 MG/10 ML VIAL IV ONE (08:25)
[2024-08-28] MEDS ORDERED: GLYCOPYRROLATE 0.2 MG/ML 2 ML VIAL ONE (08:25)
[2024-08-28] MEDS ORDERED: HEPARIN SODIUM,PORCINE 10,000 UNIT/ML 1 ML VIAL ONE (08:25)
[2024-08-28] MEDS ORDERED: LIDOCAINE 1% INJ 10MG/ML (20 ML MDV) ONE (08:25)
[2024-08-28] MEDS ORDERED: VASOPRESSIN 20 UNIT/ML 1 ML VIAL ONE (08:25)
[2024-08-28] MEDS ORDERED: MIDAZOLAM 2 MG/2 ML VIAL ONE (08:25)
[2024-08-28] MEDS ORDERED: fentaNYL (PF) 50 MCG/ML 2 ML AMP ONE (08:25)
[2024-08-28] MEDS ORDERED: WATER FOR INJECTION, STERILE 10 ML VIAL IV ONE (08:25)
[2024-08-28] MEDS: IOPAMIDOL-370 100ML BTL INJ ONE ×2 (11:11)
[2024-08-28] MEDS ORDERED: NALOXONE 0.4 MG/ML 10 ML VIAL IVP PRN (11:16)
--- NOTE | 2024-08-28 11:22 | IR ---
EXAMINATION TYPE: IR stent intravas non coronary DATE OF EXAM: 08/28/2024 11:10 AM COMPARISON: Pre Operative Images if available both CT/MRI or plain film CLINICAL INDICATION: Male, 79 years old with history of AAA repair, bilater gr perclose x 2, 39.3m/46 7DAP; TECHNIQUE: IR stent intravas non coronary, multiple fluoroscopic images provided for procedure. DAP: 467 mGym2 Gycm2 uGym2 cGycm2 or equivalent. FINDINGS: IMPRESSION: 1. Report was generated for administrative purposes only. 2. Please see the operative/procedural note for further details. [facility], , 08/28/2024 11:19 AM
[2024-08-28 11:58] LABS: Basophils % (A) 0 %; Eosinophils # (A) 0.3 k/uL (0-0.7); Eosinophils % (A) 6 %; HCT 36.5 % (39.0-53.0); HGB 11.8 gm/dL (13.0-17.5); Lymphocytes # (A) 0.7 k/uL (1.0-4.8); Lymphocytes % (A) 13 %; MCH 27.4 pg (25.0-35.0); MCHC 32.3 g/dL (31.0-37.0); MCV 84.8 fL (80.0-100.0); Mean Platelet Volume 7.5; Monocytes # (A) 0.3 k/uL (0-1.0); Monocytes % (A) 6 %; Neutrophils # (A) 3.9 k/uL (1.3-7.7); Neutrophils % (A) 72 %; Platelet Count 132 k/uL (150-450); RDW 15.2 % (11.5-15.5); WBC 5.5 k/uL (3.8-10.6)
[2024-08-28 12:45] LABS: African American GFR (CKD) >90 (>60 ml/min/1.73 sqM); Anion Gap 7 mmol/L; Blood Urea Nitrogen 16 mg/dL (9-20); Carbon Dioxide 26 mmol/L (22-30); Chloride 105 mmol/L (98-107); Glucose 136 mg/dL (74-99); Non-African American GFR(CKD) 84 (>60 ml/min/1.73 sqM); Potassium 4.4 mmol/L (3.5-5.1); Sodium 138 mmol/L (137-145)
[2024-08-28] MEDS ORDERED: ALBUTEROL NEBULIZED 2.5 MG/3 ML INHALATION PRN (15:00)
[2024-08-28] MEDS: TAMSULOSIN 0.4 MG CAP.ER.24H PO SCH (15:06)
[2024-08-28] MEDS: amLODIPine 10 MG TAB PO SCH (15:08)
[2024-08-28] MEDS: hydrALAZINE HCL 20 MG/ML 1 ML VIAL IVP PRN (15:21)
[2024-08-28] MEDS: carvediloL 6.25 MG TAB PO SCH (15:21)
[2024-08-28] MEDS: ALPRAZolam 0.5 MG TAB PO PRN (15:50)
[2024-08-28 16:07] LABS: Glucose,Whole Blood 100 mg/dL (70-110)
[2024-08-28] MEDS: hydrALAZINE HCL 20 MG/ML 1 ML VIAL IVP STA (16:10)
[2024-08-28] MEDS: SODIUM CHLORIDE 0.9% 1,000 ML in EMPTY BAG 1 BAG IV SCH (16:23)
[2024-08-28 16:40] LABS: HCT 42.8 % (39.0-53.0); HGB 13.8 gm/dL (13.0-17.5); Hypochromasia Slight; MCH 27.9 pg (25.0-35.0); MCHC 32.3 g/dL (31.0-37.0); MCV 86.5 fL (80.0-100.0); Mean Platelet Volume 7.3; Platelet Count 125 k/uL (150-450); RBC 4.95 m/uL (4.30-5.90); WBC 7.8 k/uL (3.8-10.6)
[2024-08-28 16:48] LABS: ALT 20 U/L (4-49); AST 29 U/L (17-59); African American GFR (CKD) >90 (>60 ml/min/1.73 sqM); Albumin 4.1 g/dL (3.5-5.0); Alkaline Phosphatase 73 U/L (38-126); Anion Gap 10 mmol/L; Blood Urea Nitrogen 15 mg/dL (9-20); Calcium 9.2 mg/dL (8.4-10.2); Carbon Dioxide 23 mmol/L (22-30); Chloride 104 mmol/L (98-107); Glucose 105 mg/dL (74-99); Non-African American GFR(CKD) 85 (>60 ml/min/1.73 sqM); Potassium 4.4 mmol/L (3.5-5.1); Sodium 137 mmol/L (137-145); Total Bilirubin 0.8 mg/dL (0.2-1.3); Total Protein 6.7 g/dL (6.3-8.2)
--- NOTE | 2024-08-28 20:15 | P.OP ---
Date of Procedure: 08/28/24 Preoperative Diagnosis: Infrarenal 6.3cm AAA Postoperative Diagnosis: Same Bilateral common iliac artery severe stenosis greater than 60% Procedure(s) Performed: Percutaneous endovascular aortic repair with Hermann device Percutaneous balloon angioplasty of bilateral common iliac arteries 8x40 mm Percutaneous closure with Perclose x 2 bilateral femoral arteries with Angio- Seal 8 Nepalese on the right Anesthesia: LYNNE Surgeon: Luis Salazar Estimated Blood Loss (ml): 50 Pathology: none sent Condition: stable Disposition: PACU Indications for Procedure: 79-year-old gentleman with history of infrarenal AAA presents to the hospital for endovascular aortic repair. Description of Procedure: After written and informed consent was obtained and all risks, benefits and complications were discussed the patient was brought to the endovascular suite and laid in a supine position. Timeout was performed in usual fashion and patient was given antibiotics prior to access. The bilateral groins were prepped and draped in usual sterile fashion after appropriate anesthesia was performed per anesthesiology. Ultrasound was used to visualize the right and left common femoral arteries and access to the vessels was obtained under ultrasound guidance such that bright red pulsatile blood was expressed through the needle. A guidewire was inserted, incisions with an 11 blade scalpel were made over the wires, followed by dilation of the tracts with 6 Nepalese access sheaths. Following dilation, 6 Nepalese Perclose proglide devices were used to place sutures in the bilateral common femoral arteries which were held in place using hemostats. An 8 Nepalese sheath was then inserted into the right common femoral artery and a 8 Nepalese sheath was inserted in the left. Patient was administered heparin and followed with ACTs and re-dosing as needed for ACT >200. A 035 Guidewire was inserted into the right sided sheath and advanced into the thoracic aorta using a 100cm 5 northern irish glidecath. A second guidewire was inserted into the left side sheath followed by a 100cm pigtail catheter. Angiogram was performed to measure vessel lengths and characterize the anatomy and its topography. A 34 mm Hermann aortic body was then loaded over the right sided guidewire after removal of the 8 northern irish sheath. The delivery system was inserted into the vasculature and advanced until the implant radiopaque markers were approximately 1 cm proximal to the intended landing site. Orientation of the aortic body to the desired position for appropriate access to the contralateral aortic body limb was obtained by angiogram. The first segment of the proximal stent was deployed in usual fashion and balloon was inflated to open the main body crown and orientation was performed with fluoroscopy. The pigtail catheter was withdrawn once measurements obtained for proximal landing zone just below the renal arteries. The remainder of the proximal stent was then deployed in usual fashion. The aortic body guidewire until the stiff the floppy transition was within the aortic body ipsilateral leg. Radiopaque polymer was then injected under direct visualization of fluoroscopy. Contralateral limb access was then obtained using the integrated crossover lumen in the aortic body delivery system and snare catheter to facilitate placement of 0.14 command wire. A 5fr alexis catheter into the contralateral side and dewayne wired an 014 wire into the graft and descending thoracic aorta. An angled catheter was guided into the contralateral limb and wire was exchaged for a stiff wire followed by a pigtail catheter. A retrograde angiogram was obtained to confirm contralateral limb length. We maintained guidewire position to remove the angiographic catheter and introducer sheath from the contralateral access site. A 14 x 160 iliac limb delivery system over the left sided g uidewire was placed and deployed in normal fashion. The deployment sheath was removed by maintaining position of the sheath and retracted the catheter handle to receive the nose cone and the end of the delivery system outer sheath. Aortic body guidewire was repositioned into the aorta and the proximal sealing ring was ballooned. The main body deployment catheter was removed in usual fashion and pigtail catheter was placed in the ipsilateral limb and retrograde angiogram was performed for length measurements. A 22 x 140 iliac limb was chosen and delivered in usual fashion. Two 12 x 40 mm balloons were placed bilaterally to perform additional angioplasty of the stent graft. Balloons were removed and pigtail catheter was placed and final angiogram was obtained demonstrating exclusion of the aortic aneurysm without evidence of endoleak. The vascular access sites were closed using the sutures of the previously performed Perclose device after removal of guidewires, catheters and sheath. Hemostasis was achieved. The patient tolerated the procedure well and had palpable pulses. Dressings were placed and patient was sent to PACU for recovery.
--- NOTE | 2024-08-28 21:11 | CONS ---
CONSULTATION REASON FOR CONSULTATION: Advice regarding hypertension and other medical issues, requested by Vascular Surgery. HISTORY OF PRESENT ILLNESS: This is a 79-year-old gentleman with a past medical history of multiple medical problems including hypertension, underwent aortic stenting for aortic aneurysm. The detailed operative report is not available at this time, but postoperatively the patient was found to have blood pressure elevations up to 180/90, and the patient was admitted for further evaluation and treatment. There is no history of any fever, rigors, or chills. No chest pain, palpitation, or shortness of breath. PAST MEDICAL HISTORY: Reviewed include aortic aneurysm, history of CAD, hypertension, hyperlipidemia. Rest of the history and rest of the chart are also reviewed. HOME MEDICATIONS: Reviewed include sulfasalazine, dose and rest of medications reviewed. ALLERGIES: Lisinopril. FAMILY HISTORY: History of cancer in the family. SOCIAL HISTORY: Remote history of smoking. REVIEW OF SYSTEMS: Fourteen-point review of systems is negative except as mentioned earlier. PHYSICAL EXAMINATION: VITAL SIGNS: Pulse is 77, blood pressure 180/90, respirations 16. HEENT: Conjunctivae normal. NECK: No JVD. CARDIOVASCULAR: S1, S2 normal. RESPIRATIONS: Breath sounds diminished at the bases. ABDOMEN: Soft, obese, nontender. No mass. LEGS: No edema. NERVOUS SYSTEM: No focal deficits. LABORATORY DATA: Lymphocytes are 0.7. Otherwise, other labs are noted. ASSESSMENT: 1. Status post aortic stenting. 2. Hypertension. 3. Hyperlipidemia. 4. Chronic obstructive pulmonary disease. 5. History of coronary artery disease. 6. History of coronary artery disease stent. 7. Restorationism. RECOMMENDATIONS AND DISCUSSION: This is a 79-year-old gentleman, who presented with multiple complex medical issues. At this time, I recommend to continue the current medications, continue symptomatic treatment. Recommended to resume the home medications and I would also recommend hydralazine p.r.n. If the blood pressure remains elevated, adjustment of the home medication may be required. Otherwise, DVT prophylaxis. We will follow the patient closely with you. Recommend close followup with the primary physician, Dr. Bliss after discharge. MMODL / IJN: [id number] /
[2024-08-28] MEDS: traZODone HCL 100 MG TAB PO SCH (21:27)
[2024-08-28] MEDS: LOSARTAN 50 MG TAB PO SCH (21:27)
[2024-08-28] MEDS: ATORVASTATIN 20 MG TAB PO SCH (21:27)
[2024-08-28] MEDS: sulfaSALAzine 500 MG TAB PO SCH (21:28)
[2024-08-29 07:13] LABS: African American GFR (CKD) 81 (>60 ml/min/1.73 sqM); Non-African American GFR(CKD) 70 (>60 ml/min/1.73 sqM)
[2024-08-29] MEDS: ASPIRIN 81 MG PO SCH (08:58)
--- NOTE | 2024-08-29 12:37 | P.DS ---
Providers Date of admission: 08/28/24 06:30 Attending physician: Luis Salazar DO Consults: 08/28/24 07:02 Consult to Anesthesia Routine Consulting Provider: Anesthesia,Services Consult Reason/Comments: General anesthesia for Aortic Stent procedure 08/28/24 11:19 Consult Physician Routine Consulting Provider: Araceli Hampton Consult Reason/Comments: medical management Do you want consulting provider notified?: Yes Primary care physician: [facility] Hospital Course: 08/29/2024 79-year-old male with history of infrarenal abdominal aortic aneurysm 6.3 cm and bilateral common iliac artery stenosis greater than 60% was scheduled for elective endovascular aortic repair. He is postop day #1 for percutaneous endovascular aortic repair with alto device, percutaneous balloon angioplasty of bilateral common iliac arteries with closure device. Apparently postoperatively patient had become hypertensive and an emergency response team was called. Patient states that he was overall asymptomatic, did have some shortness of breath no chest pain, abdominal pain, nausea or vomiting. Denied any dizziness, weakness or headaches. He was given hydralazine 10 mg IV push with it ordered as needed. Medical team was consulted and had seen patient resumed his home medications. Blood pressures have improved throughout the night. They were actually on the lower side this morning and home blood pressure medications were held. He denies any headache, dizziness, lightheadedness, no chest pain or shortness of breath. Does have some discomfort in his groins at the surgical sites however no pain down his lower extremities or his abdomen. He is afebrile. Labs are unremarkable. Last blood pressure 122/62, heart rate 72 respiratory rate 17 oxygen saturation 97% on room air. He has been up and ambulating into the hallway. Daley catheter was discontinued this morning, voided 50 cc. Patient does have a history of urinary retention and does take Flomax at home. 08/30/2024 Discharge was held yesterday secondary to urology consultation and recommendation for continued monitoring of voiding and post residual void. Patient denies any shortness of breath, chest pain, abdominal pain, nausea or vomiting. Has some discomfort bilateral groins from surgical sites. No pain in his lower extremities. He has been able to continue to void throughout the night on his own. Last bladder scan showed 51 to 75 mL post void. Patient is afebrile. Vital signs are stable. Exam General appearance: The patient is alert, oriented, appears in no acute distress. Obese. HET: Head is normocephalic and atraumatic. Pupils are equal and reactive. Neck: Supple. Heart: Regular. Lungs: Equal expansion, normal respiratory effort. Abdomen: Soft, nontender, nondistended. Extremities: Normal skin color and turgor. Bilateral groins with dressing clean dry and intact. Access site without any active bleeding, no surrounding hematoma. Bilateral lower extremities warm to the touch, palpable PT and DP pulses. Neurological: No focal deficits. Strength and sensation are grossly intact. Assessment 1. 6.3 cm infrarenal abdominal aortic aneurysm status post percutaneous endovascular aortic repair 2. Bilateral common iliac artery stenosis status post balloon angioplasty 3. Hypertension, resolved 4. Postoperative urinary retention with history of urinary retention Plan 1. Encourage ambulation 2. Continue blood pressure medication per recommendations from medical team 3. Continue rest of home medications 4. Urology consulted for urinary retention. Appreciate their recommendations. 4. Plan for discharge home today if cleared by urology The impression and plan of care has been dictated as directed. Dr. Daley I performed a history and examination of this patient, discussed the same with the dictator. I agree with the dictator's note ,documented as a scribe. Any additional findings or plans will be noted. Procedures: Percutaneous endovascular aortic repair with Bessie device Percutaneous balloon angioplasty of bilateral common iliac arteries 8x40 mm Percutaneous closure with Perclose x 2 bilateral femoral arteries with Angio- Seal 8 Amharic on the right Patient Condition at Discharge: Stable Plan - Discharge Summary Discharge Rx Participant: No New Discharge Prescriptions: Continue Tamsulosin HCl [Flomax] 0.4 mg PO DAILY Aspirin EC [Ecotrin Low Dose] 81 mg PO HS amLODIPine BESYLATE 10 mg PO DAILY Rosuvastatin [Crestor] 10 mg PO HS sulfaSALAzine [sulfaSALAzine Dr] 1,000 mg PO BID traZODone HCL [Desyrel] 100 mg PO HS carvediloL [Coreg] 6.25 mg PO BID Albuterol Inhaler [Ventolin Hfa Inhaler] 2 puff INHALATION RT-QID PRN 30 Days #1 each PRN Reason: Shortness Of Breath Or Wheezing Discontinued Losartan Potassium 100 mg PO HS Discharge Medication List Aspirin EC [Ecotrin Low Dose] 81 mg PO HS 02/15/18 [History] Tamsulosin HCl [Flomax] 0.4 mg PO DAILY 02/15/18 [History] Rosuvastatin [Crestor] 10 mg PO HS 04/08/20 [History] amLODIPine BESYLATE 10 mg PO DAILY 04/08/20 [History] sulfaSALAzine [sulfaSALAzine Dr] 1,000 mg PO BID 08/20/20 [History] carvediloL [Coreg] 6.25 mg PO BID 05/23/23 [History] traZODone HCL [Desyrel] 100 mg PO HS 05/23/23 [History] Albuterol Inhaler [Ventolin Hfa Inhaler] 2 puff INHALATION RT-QID PRN 30 Days #1 each 05/26/23 [Rx] Follow up Appointment(s)/Referral(s): Luis Salazar DO [STAFF PHYSICIAN] - 09/10/24 10:30 am (FOLLOW UP APPOINTMENT WAS ALREADY MADE WITH DR. SALAZAR. ) Kahlil Bliss DO [Primary Care Provider] - 1 Week Activity/Diet/Wound Care/Special Instructions: Activity limited until follow-up Follow-up with primary care provider on discharge Follow-up with vascular surgery outpatient Continue holding losartan for now and monitor blood pressure at least daily and keep a diary of all readings Continue with Coreg and may hold Norvasc if blood pressure top number systolic is 110 or less No driving until cleared by surgeon Avoid heavy lifting greater than 10 lbs , pushing, pulling, straining, flights of stairs for three days. ok to shower tomorrow but no baths, pools, soaking in tubs for three days to avoid risk of infection. signs of infection ie: fever, rash, drainage from puncture site, swelling contact doctor or return to ER immediately. Heavy bleeding from puncture site apply firm direct pressure and return to ER. Do not attempt to drive self. low sodium/low fat diet Discharge Disposition: HOME SELF-CARE
--- NOTE | 2024-08-29 13:21 | PN ---
PROGRESS NOTE DATE OF SERVICE: 08/29/2024 SUBJECTIVE: This is a 79-year-old gentleman, who was admitted after aortic endovascular repair with Harmony device as well as angioplasty of the common iliac arteries, had elevated blood pressure yesterday. Currently, the patient is feeling much better. Blood pressure is better. Platelets are 125. There is no history of any fever, rigors, or chills. PAST MEDICAL HISTORY: Reviewed. REVIEW OF SYSTEMS: Fourteen-point review is negative except as mentioned earlier. CURRENT MEDICATIONS: Reviewed. PHYSICAL EXAMINATION: VITAL SIGNS: Pulse is 68, blood pressure 148/67, respirations 17. HEENT: Conjunctivae normal. NECK: No JVD. CARDIOVASCULAR: S1, S2. RESPIRATIONS: Breath sounds diminished at the bases. ABDOMEN: Soft and nontender. LEGS: No edema. NERVOUS SYSTEM: Nonfocal. LABORATORY DATA: Reviewed. Platelets 125. ASSESSMENT: 1. Status post endovascular aortic repair with Harmony device for infrarenal 6.3 cm abdominal aortic aneurysm. 2. Status post balloon angioplasty of the bilateral common iliac arteries. 3. Elevated blood pressure/hypertension. 4. Mild thrombocytopenia. 5. Hyperlipidemia. 6. Chronic obstructive pulmonary disease. 7. Coronary artery disease history and stent history. 8. Druze. RECOMMENDATIONS: Recommended to continue current management. Continue symptomatic treatment. Now, recommended repeat labs. Monitor platelets carefully. Otherwise, continue with the current blood pressure medications, and we will monitor the patient closely with you. I would also recommend the patient to keep a blood pressure flow chart at home and review with the primary physician because of the accelerated hypertension noted during the hospitalization. MMODL / IJN: [id number] /
--- NOTE | 2024-08-29 16:31 | P.GSCN ---
History of Present Illness Consult date: 08/29/24 Reason for Consult: Postoperative urinary retention Requesting physician: Adia Gomez History of present illness: The patient is a 79-year-old white male who was placed on tamsulosin 2 to 3 years ago when he began to develop voiding symptoms, and it has helped. Despite this, he does continue to experience nocturia x 3-4, with varying voided volumes. He denies any prior history of UTIs or urolithiasis. He who underwent endovascular repair of an infrarenal AAA yesterday and developed urinary retention postoperatively. His Daley catheter was removed this morning, and he is voiding without difficulty. In fact, he states that each void becomes more and more normal. Bladder scan shows postvoid residuals to be in the low 200 cc range. Review of Systems - Genitourinary Reports as per HPI Past Medical History Past Medical History: Coronary Artery Disease (CAD), COPD, Hyperlipidemia, Hypertension, Prostate Disorder, Sleep Apnea/CPAP/BIPAP Additional Past Medical History / Comment(s): bruising easily, no cpap used, ulcerative colitis, diverticulitis, tung carotid blockage, CYST ON KIDNEY-dr. monitoring, aortic aneurysm History of Any Multi-Drug Resistant Organisms: None Reported Past Surgical History: Ear Surgery, Heart Catheterization With Stent, Orthopedic Surgery Additional Past Surgical History / Comment(s): 2 cardiac stents, ORIF rt wrist, skin graft left eardrum, surgery for deviated septum, rt cataract, surgery to remove a growth on scrotum, left carotid endartectomy Past Anesthesia/Blood Transfusion Reactions: No Reported Reaction Additional Past Anesthesia/Blood Transfusion Reaction / Comm: JEHOVAHS WITNESS- NO BLOOD TRANSFUSIONS Date of Last Stent Placement:: 01/31/2017 Smoking Status: Former smoker - Past Family History Sister(s) Family Medical History: Cancer Brother(s) Family Medical History: Cancer Medications and Allergies Home Medications Medication Instructions Recorded Confirmed Type Aspirin EC [Ecotrin Low Dose] 81 mg PO HS 02/15/18 08/28/24 History Tamsulosin HCl [Flomax] 0.4 mg PO DAILY 02/15/18 08/28/24 History Rosuvastatin [Crestor] 10 mg PO HS 04/08/20 08/28/24 History amLODIPine BESYLATE 10 mg PO DAILY 04/08/20 08/28/24 History sulfaSALAzine [sulfaSALAzine Dr] 1,000 mg PO BID 08/20/20 08/28/24 History carvediloL [Coreg] 6.25 mg PO BID 05/23/23 08/28/24 History traZODone HCL [Desyrel] 100 mg PO HS 05/23/23 08/28/24 History Albuterol Inhaler [Ventolin Hfa 2 puff INHALATION RT-QID PRN 30 05/26/23 08/28/24 Rx Inhaler] Days #1 each Allergies Allergy/AdvReac Type Severity Reaction Status Date / Time lisinopril Allergy Anaphylaxis Verified 08/27/24 10:25 Surgical - Exam Vital Signs Temp Pulse Resp BP Pulse Ox 97.6 F 72 16 230/107 93 L 08/28/24 08:03 08/28/24 08:03 08/28/24 08:03 08/28/24 08:03 08/28/24 08:03 - General well developed, well nourished, no distress - Respiratory normal respiratory effort - Psychiatric oriented to time, oriented to person, oriented to place, speech is normal, memory intact Results - Labs 08/28/24 16:25 08/29/24 06:39 Abnormal Lab Results - Last 24 Hours (Table) 08/28/24 08/28/24 Range/Units 16:25 16:25 Plt Count 125 L (150-450) k/uL Glucose 105 H (74-99) mg/dL Diabetes panel 08/28/24 08/29/24 Range/Units 16:25 06:39 Sodium 137 (137-145) mmol/L Potassium 4.4 (3.5-5.1) mmol/L Chloride 104 (98-107) mmol/L Carbon Dioxide 23 (22-30) mmol/L BUN 15 (9-20) mg/dL Creatinine 0.84 1.03 (0.66-1.25) mg/dL Glucose 105 H (74-99) mg/dL Calcium 9.2 (8.4-10.2) mg/dL AST 29 (17-59) U/L ALT 20 (4-49) U/L Alkaline Phosphatase 73 (38-126) U/L Total Protein 6.7 (6.3-8.2) g/dL Albumin 4.1 (3.5-5.0) g/dL Calcium panel 08/28/24 Range/Units 16:25 Calcium 9.2 (8.4-10.2) mg/dL Albumin 4.1 (3.5-5.0) g/dL Pituitary panel 08/28/24 08/29/24 Range/Units 16:25 06:39 Sodium 137 (137-145) mmol/L Potassium 4.4 (3.5-5.1) mmol/L Chloride 104 (98-107) mmol/L Carbon Dioxide 23 (22-30) mmol/L BUN 15 (9-20) mg/dL Creatinine 0.84 1.03 (0.66-1.25) mg/dL Glucose 105 H (74-99) mg/dL Calcium 9.2 (8.4-10.2) mg/dL Adrenal panel 08/28/24 08/29/24 Range/Units 16:25 06:39 Sodium 137 (137-145) mmol/L Potassium 4.4 (3.5-5.1) mmol/L Chloride 104 (98-107) mmol/L Carbon Dioxide 23 (22-30) mmol/L BUN 15 (9-20) mg/dL Creatinine 0.84 1.03 (0.66-1.25) mg/dL Glucose 105 H (74-99) mg/dL Calcium 9.2 (8.4-10.2) mg/dL Total Bilirubin 0.8 (0.2-1.3) mg/dL AST 29 (17-59) U/L ALT 20 (4-49) U/L Alkaline Phosphatase 73 (38-126) U/L Total Protein 6.7 (6.3-8.2) g/dL Albumin 4.1 (3.5-5.0) g/dL Assessment and Plan (1) Retention of urine, unspecified Current Visit: Yes Status: Acute Code(s): R33.9 - RETENTION OF URINE, UNSPECIFIED SNOMED Code(s): 925011149 Plan: The patient will continue to receive tamsulosin, and postvoid residuals will be monitored.
[2024-08-30 06:59] LABS: Basophils # (A) 0.1 k/uL (0-0.2); Basophils % (A) 1 %; Eosinophils # (A) 0.3 k/uL (0-0.7); Eosinophils % (A) 4 %; HCT 41.6 % (39.0-53.0); HGB 13.2 gm/dL (13.0-17.5); Hypochromasia Slight; Lymphocytes # (A) 0.8 k/uL (1.0-4.8); Lymphocytes % (A) 10 %; MCH 27.7 pg (25.0-35.0); MCHC 31.8 g/dL (31.0-37.0); MCV 87.1 fL (80.0-100.0); Monocytes # (A) 0.7 k/uL (0-1.0); Monocytes % (A) 9 %; Neutrophils # (A) 5.6 k/uL (1.3-7.7); Neutrophils % (A) 73 %; Platelet Count 135 k/uL (150-450); RBC 4.77 m/uL (4.30-5.90); RDW 15.4 % (11.5-15.5); WBC 7.6 k/uL (3.8-10.6)
[2024-08-30 07:23] LABS: African American GFR (CKD) 88 (>60 ml/min/1.73 sqM); Anion Gap 8 mmol/L; Blood Urea Nitrogen 18 mg/dL (9-20); Calcium 8.6 mg/dL (8.4-10.2); Carbon Dioxide 24 mmol/L (22-30); Chloride 104 mmol/L (98-107); Glucose 107 mg/dL (74-99); Non-African American GFR(CKD) 77 (>60 ml/min/1.73 sqM); Potassium 4.2 mmol/L (3.5-5.1); Sodium 136 mmol/L (137-145)
[2024-08-30 08:40] VITALS: TEMP 98.4
[2024-08-30 08:45] VITALS: RESP 18
[2024-08-30 11:28] VITALS: BP 154/82; PULSE 74
--- NOTE | 2024-08-31 01:57 | PN ---
PROGRESS NOTE DATE OF SERVICE: 08/30/2024 SUBJECTIVE: This 79-year-old gentleman, who was admitted after endovascular aortic repair of aortic aneurysm, improving significantly. No chest pain. No palpitation. PHYSICAL EXAMINATION: VITAL SIGNS: Pulse is 74, blood pressure 150/82, and respirations 18. CHEST: Clear to auscultation. CARDIOVASCULAR: S1, S2. ABDOMEN: Soft. LABORATORY DATA: Reviewed. ASSESSMENT: 1. Status post endovascular aortic repair. 2. Status post balloon angioplasty. 3. Elevated WBC, hypertension. 4. Mild thrombocytopenia, stable. 5. Hyperlipidemia. 6. Multiple complex medical issues. RECOMMENDATIONS: Recommend to continue current management. Continue symptomatic treatment. Otherwise, at this time, I recommend to resume the home medications. Follow up with primary physician closely. Rest of the recommendations per Surgery. Further recommendations to follow. MMODL / IJN: [id number] /
== END 2024-08-30 12:56 | disposition home or self-care (01) | DRG 269 ==
LOC: 2ORMAIN 06:30 → 3SCARD 13:30
PROVIDERS: ADMIT Surgery; ATTEND Surgery
PROC: 047C3ZZ Dilation of Right Common Iliac Artery, Percutaneous Approach (ICD-10-PCS; principal; 2024-08-28 08:30)
PROC: 04V03DZ Restriction of Abdominal Aorta with Intraluminal Device, Percutaneous Approach (ICD-10-PCS; principal; 2024-08-28 08:30)
PROC: 047D3ZZ Dilation of Left Common Iliac Artery, Percutaneous Approach (ICD-10-PCS; principal; 2024-08-28 08:30)
DX: I71.43 Infrarenal abdominal aortic aneurysm, without rupture (principal); D69.6 Thrombocytopenia, unspecified; J44.9 Chronic obstructive pulmonary disease, unspecified; E66.9 Obesity, unspecified; I10 Essential (primary) hypertension; I70.8 Atherosclerosis of other arteries; R33.8 Other retention of urine; E78.5 Hyperlipidemia, unspecified; I25.10 Atherosclerotic heart disease of native coronary artery without angina pectoris; Z79.899 Other long term (current) drug therapy; Z86.79 Personal history of other diseases of the circulatory system; Z87.891 Personal history of nicotine dependence; Z95.5 Presence of coronary angioplasty implant and graft; Z79.82 Long term (current) use of aspirin; Z88.8 Allergy status to other drugs, medicaments and biological substances
CPT/HCPCS: 34705; 80048; 80053; 82565; 85025; 85027; 86850; 86900; 86901

== ENCOUNTER → 2024-09-26 | Outpatient (CLI) | payer MEDICARE ==
[2024-09-26 08:04] LABS: African American GFR (CKD) 84 (>60 ml/min/1.73 sqM); Blood Urea Nitrogen 17 mg/dL (9-20); Non-African American GFR(CKD) 72 (>60 ml/min/1.73 sqM)
--- NOTE | 2024-09-26 10:39 | CT ---
EXAMINATION TYPE: CT noncontrast chest abdomen pelvis. CT angio thor/abd pel aorta DATE OF EXAM: 09/26/2024 9:24 AM COMPARISON: 07/05/2024. CLINICAL INDICATION: Male, 79 years old with history of I71.4 AAA; [facility], a[facility] TECHNIQUE: Noncontrast CT chest, abdomen, and pelvis with coronal and sagittal reconstructions. Subse quent scanning of the chest, abdomen, and pelvis with administration of 100 mL Isovue 370 IV contrast . Both arterial phase and delayed scans were performed. Coronal and sagittal reconstructions. 3-D rec onstructions generated on a dedicated PET workstation. CT DLP: 3910.1 mGycm, Automated exposure control for dose reduction was used. FINDINGS: ARTERIAL VASCULATURE: Possible severe stenosis proximal right subclavian artery. In the chart vessel branching anatomy. Moderate atherosclerotic plaque and calcification aortic arch, descending thoracic aorta, and abdominal aorta. Ascending aorta mildly aneurysmal at 4.3 cm, unchanged. At least moderat e focal stenoses at the bilateral renal artery origins. Abdominal aortobiiliac endovascular stent gra ft beginning just below the level of the SMA is redemonstrated. [place] sac dimension relatively uncha nged 7.3 x 5.2 cm versus 7.4 x 5.1 cm, previously. A small focus of air within the anterior aspect of the [place] sac probably residual related to patient's interval surgery. Correlate as to time since s urgery. No abnormal contrast enhancement identified within the [place] sac. Segmental moderate atheros clerotic stenoses throughout the iliac arteries. 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 PULMONARY ARTERIAL VASCULATURE: Large caliber main right and left pulmonary arteries at 3.1 cm sugges ting underlying pulmonary hypertension. VENOUS SYSTEM: Unremarkable. LUNGS/ PLEURA: Mild emphysematous change. No consolidation or pleural effusion. Strandy dependent are as of atelectasis. AIRWAY: Patent and unremarkable. HEART: Size within normal limits.Three-vessel coronary artery calcifications. MEDIASTINUM: No gross evidence of adenopathy. MUSCULOSKELETAL: No acute osseous abnormalities SOFT TISSUES/LYMPH NODES: Unremarkable. LOWER NECK: No significant findings. Abdomen: LIVER: Unremarkable GALLBLADDER AND BILE DUCTS: Punctate 3 mm gallstone. No abnormal gallbladder distention. PANCREAS: Unremarkable. SPLEEN: Unremarkable. ADRENAL GLANDS: Unremarkable. KIDNEYS AND URETERS: Underlying bilateral renal cortical cysts measuring up to 5.0 cm on the right. PELVIS BLADDER: Left anterior bladder dome diverticulum measuring 2.5 cm. REPRODUCTIVE: Prostate gland is enlarged at 6.3 cm wide. There is median lobe hypertrophy with nodula r impression at the base of the bladder. ABDOMEN & PELVIS STOMACH AND BOWEL: No evidence of bowel obstruction. PERITONEUM/RETROPERITONEUM: No evidence of pneumoperitoneum or free fluid. 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 Accentuated thoracic kyphosis. Dayna re degenerative disc disease mid and lower lumbar spine as well as T12/L1. Hypertrophic facet arthrop athy and gastric disease lumbar spine. No vertebral compression collapse. Mild degenerative change at the hips. LYMPH NODES: No gross evidence for lymphadenopathy. SOFT TISSUE/ABDOMINAL WALL: Unremarkable IMPRESSION: 1. Interval placement of aortobiiliac endovascular stent graft. [place] sac caliber similar at 7.3 x [address] evidence for endoleak. 2. A small focus of air within the anterior luminal space of the [place] sac is probably postsurgical. Correlate as to time since surgery. No significant surrounding inflammation to further suggest under lying infection. Follow-up as clinically indicated. 3. Numerous additional findings as detailed above. [facility], , 09/26/2024 10:36 AM
== END | disposition home or self-care (01) ==
LOC: RADCTMAIN 07:36
PROVIDERS: ATTEND Surgery
DX: I71.40 Abdominal aortic aneurysm, without rupture, unspecified (principal); K80.20 Calculus of gallbladder without cholecystitis without obstruction; N28.1 Cyst of kidney, acquired; N40.0 Benign prostatic hyperplasia without lower urinary tract symptoms; N32.3 Diverticulum of bladder; M51.369 Other intervertebral disc degeneration, lumbar region without mention of lumbar back pain or lower extremity pain; Z95.828 Presence of other vascular implants and grafts
CPT/HCPCS: 82565; 84520; 71275; 74174; Q9967